=== PATIENT | male | born 1945 | race Caucasian/White ===

== ENCOUNTER 2017-02-17 08:21 | Inpatient (IN) | payer OTHER, BC ==
[2017-02-17 08:26] VITALS: BMI 28.1
--- NOTE | 2017-02-17 09:50 | PDOC ---
History of Present Illness - General Chief Complaint: Pain Stated Complaint: RT SHOULDER PAIN Time Seen by Provider: 02/17/17 08:42 History Source: Patient Exam Limitations: No Limitations - History of Present Illness Initial Comments: 02/17/17 12:00 02/17/17 12:00 My Chief Complaint: worsening rt. shoulder pain History of Present Illness: Pt. is a 71 y/o male with h/o HTN, Gout, multiple cardiac stents, chronic renal insuffiency, rt. rotator surgery 5 mths ago, dermal implant rt. shoulder 3 mths ago 11/11/16. Pt. reports "brushing up a wall 2 weeks ago when walking up steps 2 weeks ago". Pt. has had decreased range of motion rt. shoulder since this episode prior to this he was able to move his rt. shoulder without pain. Pt. also has swelling rt. shoulder with erythema of rt. upper arm/shoulder with increased warmth, since yesterday he reports that erythema and pain radiates slightly past his rt elbow. Pt. took percocet last night with relief of pain for only 2 hours. Pt. was treated for gout of left foot 3 weeks ago for 12 days with prednisone. pt. denies any fever or chills. Pt. currently is a 10 out of 10. REGIONAL REHABILITATION DIRECTOR: Dr. Reddy PMHx: HtN, GERD, GOUT, CAD, chronic renal insufficency ALLERGIES: CODEINE Surgical HX: cardiac stents, b/l inguinal hernia repair ORtho: Dr. Castro 02/17/17 12:05 02/17/17 12:33 02/18/17 08:20 Timing/Duration: getting worse Severity: severe (rt. shoulder radiating down rt. arm to mid forearm) Associated Symptoms: reports: other (RT. SHOULDER PAIN RADIATES TO SLIGHTLY BELOW RT, ELBOW WITH REDNESS, INCREASED WARMTH) Past History - Past Medical History Allergies/Adverse Reactions: Allergies Allergy/AdvReac Type Severity Reaction Status Date / Time codeine AdvReac Intermediate Itching Verified 02/17/17 08:26 Home Medications: Ambulatory Orders Aspirin Coated [Ecotrin -] 81 mg PO DAILY 01/20/13 Lisinopril [Prinivil -] 20 mg PO DAILY 01/20/13 Metoprolol Succinate [Toprol XL -] 25 mg PO DAILY 01/20/13 Amlodipine Besylate [Norvasc -] 5 mg PO DAILY 02/27/14 Zolpidem Tartrate [Ambien] 5 mg PO HS PRN 03/01/14 Anemia: No Asthma: No Cancer: No Cardiac Disorders: Yes (PT HAD 6 STENTS 2010) CVA: No COPD: No CHF: No Dementia: No Diabetes: No GI Disorders: No Disorders: No HTN: Yes Hypercholesterolemia: No Liver Disease: No Seizures: No Thyroid Disease: No Other medical history: gout - Surgical History Abdominal Surgery: Yes (BILAT INGUINAL HERNIA REPAIR) Appendectomy: No Cardiac Surgery: Yes (ANGIOPLASTY 6 STENTS -SEE ABOVE) Cholecystectomy: No Lung Surgery: No Neurologic Surgery: No Orthopedic Surgery: Yes ('73 DEBORAH RIGHT LEG) - Psycho/Social/Smoking Cessation Hx Anxiety: No Suicidal Ideation: No Smoking History: Never smoked Have you smoked in the past 12 months: Yes Number of Cigarettes Smoked Daily: 2 If you are a former smoker, when did you quit?: stopped 4 yrs ago 'Breaking Loose' booklet given: 09/30/13 Hx Alcohol Use: No Drug/Substance Use Hx: No Substance Use Type: None Hx Substance Use Treatment: No Review of Systems - Review of Systems Able to Perform ROS?: Yes Constitutional: No: Symptoms Reported HEENTM: No: Symptoms Reported Respiratory: No: Symptoms reported Cardiac (ROS): No: Symptoms Reported ABD/GI: No: Symptoms Reported : No: Symptoms Reported Musculoskeletal: Yes: Joint Pain (RT. SHOULDER LATERALLY X 2 WEEKS NRADIATES TO SLIGHTLY BELOW RT. ELBOW SINCE YESTERDAY), Joint Swelling (RT. SHOULDER ) Integumentary: Yes: Erythema (RT SHOULDER RADIATES TO SLIGHTLY BELOW RT ELBOW MEDIALLY), Other (INCREASED WARMTH RT. SHOULDER) Neurological: No: Symptoms reported *Physical Exam - Vital Signs Last Vital Signs Temp Pulse Resp BP Pulse Ox 97.6 F 115 H 18 155/94 98 02/17/17 08:22 02/17/17 08:22 02/17/17 08:22 02/17/17 08:22 02/17/17 08:22 - Physical Exam General Appearance: Yes: Appropriately Dressed Respiratory/Chest: positive: Lungs Clear, Normal Breath Sounds. negative: Chest Tender, Respiratory Distress Cardiovascular: positive: Regular Rhythm, Regular Rate, S1, S2 Extremity: positive: Normal Capillary Refill, Normal Range of Motion (rt. shoulder ), Tender (rt. shoulder, left upper arm, left elbow), Swelling (rt. shoulder ), Erythema (rt. shoulder radiates down rt. arm slightly below elbow ) . negative: Normal Inspection (rt. shoulder edema, increased warmth, erythematous) Integumentary: positive: Erythema (see under integumentary) Neurologic: positive: Alert, Normal Response (decreased range of motion rt. shoulder), Motor Strength 5/5 (motor rt. shoulder decreased range of motion, strength ) Heart Score/ECG Review - [place] Comment: 02/17/17 14:[address] Kamran RAMOS Treatment Course - LABORATORY CBC & Chemistry Diagram: 02/18/17 07:00 02/18/17 07:00 Medical Decision Making - Medical Decision Making 02/17/17 10:41 Pt. is a 71 y/o male with h/o HTN, Gout, multiple cardiac stents, rt. rotator surgery 5 mths ago, dermal implant rt. shoulder 3 mths ago 11/11/16. Pt. reports "brushing up a wall 2 weeks ago when walking up steps 2 weeks ago". Pt. has had decreased range of motion rt. shoulder since this episode prior to this he was able to move his rt. shoulder without pain. Pt. also has swelling rt. shoulder with erythema of rt. upper arm/shoulder, since yesterday he reports that erythema and pain radiates slightly past his rt elbow. Pt. took percocet last night with relief of pain for only 2 hours. Pt. was treated for gout of left foot 3 weeks ago for 12 days with prednisone. pt. denies any fever or chills. Pt. currently is a 10 out of 10. Consider diagnosis of septic joint, cellultis, inflammatory process, less likely gout. r/o gout r/o septic joint r/o inflammatory process rt. shoulder r/o cellulitis rt. shoulder arm PLAN; cbc with diff CMP urinalysis blood culture ESR uric acid percocet 5mg/325mg po called his orthopedist Dr. Davison he saw pt. yesterday, xray of shoulder yesterday negative for fracture, he suggested to r/o infection versus inflammatory process versus gout Dr. Reddy called is on vacation Dr. Hubbard covering he was paged, and responded to call him if pt is being admitted 02/17/17 10:00 WBC 10.8 H D RBC 3.70 L Hgb 10.6 L Hct 31.9 L MCV 86.3 MCH 28.6 MCHC 33.1 RDW 16.4 H D Plt Count 301 D MPV 8.2 Neutrophils % Y Lymphocytes % Y 02/17/17 11:06 Laboratory Tests 02/17/17 02/17/17 10:00 10:35 Lymphocytes % (Manual) 7 L Monocytes % (Manual) 11 H Platelet Estimate Adequate Urine Color Yellow Urine Appearance Slcloudy Urine pH 6.0 Ur Specific [place] Pending Urine Protein 2+ H Urine Glucose (UA) Negative Urine Ketones Negative Urine Blood 1+ H Urine Nitrite Negative Urine Bilirubin Negative Urine Urobilinogen Negative Ur Leukocyte Esterase Negative Urine RBC 1 Urine WBC 1 Ur Epithelial Cells Rare Hyaline Casts 4 Granular Casts 7 Urine Mucus Rare Laboratory Tests 02/17/17 02/17/17 10:00 10:00 ESR 128 H Uric Acid 5.9 02/17/17 11:48 Dr. Dial called back given results of labs, he have his medical office secretary fax us labs prior to surgery rt. shoulder He is not able to come in at this time. He suggested give pt dose of colchicine to see if this decreases pain obtained labs from prior to surgery from 11/04/16 BUN 35, creatinine 1.6, akt 18 , alk phos 79, ast 20 02/17/17 11:49 02/17/17 12:10 02/17/17 12:14 02/17/17 12:[address] Andrew attending he recommends that pt. be admitted, Dr. Hubbard to be contacted, DR. ANDREW recommended starting him on vancomycin 1.5 gm IVPB now, not to give colchicine 02/17/17 12:15 EKG Laboratory Tests 02/17/17 10:00 Sodium 138 Potassium 5.0 D Chloride 103 Carbon Dioxide 25 Anion Gap 10 BUN 50 H D Creatinine 2.0 H D Creat Clearance w eGFR 32.92 Random Glucose 90 Calcium 8.8 Total Bilirubin 0.6 AST 48 H D ALT 106 H D Alkaline Phosphatase 390 H D Total Protein 6.1 L Albumin 2.2 L D Drr. Hubbard contacted pt to be admitted to med surg, he will get ortho consult 02/17/17 12:36 02/17/17 12:42 02/17/17 14:35 02/18/17 08:29 02/18/17 11:54 02/18/17 11:57 *DC/Admit/Observation/Transfer Diagnosis at time of Disposition: Cellulitis of multiple sites of upper limb and shoulder - Discharge Dispostion Condition at time of disposition: Stable Admit: Yes - Referrals
[2017-02-17 10:14] LABS: MCH 28.6 pg (25.7-33.7); MCHC 33.1 g/dl (32.0-35.9); MEAN CELL VOLUME 86.3 fl (80-96); MEAN PLT VOLUME 8.2 fl (7.5-11.1); PLATELET COUNT 301 K/MM3 (134-434); RDW 16.4 % (11.9-15.9); WHITE BLOOD COUNT 10.8 K/mm3 (4.0-10.0)
[2017-02-17 10:43] LABS: URINE APPEARANCE SLCLOUDY; URINE BILIRUBIN NEGATIVE (NEGATIVE); URINE BLOOD 1+ (NEGATIVE); URINE COLOR YELLOW; URINE GLUCOSE (UA) NEGATIVE (NEGATIVE); URINE KETONE NEGATIVE (NEGATIVE); URINE LEUK ESTERASE NEGATIVE (NEGATIVE); URINE NITRITE NEGATIVE (NEGATIVE); URINE UROBILINOGEN NEGATIVE mg/dL (0.2-1.0)
[2017-02-17 10:44] LABS: URINE PROTEIN 2+ (NEGATIVE)
[2017-02-17 10:45] LABS: GRANULAR CASTS 7 /lpf; URINE HYALINE CAST 4 /lpf; URINE MUCUS RARE; URINE RBC 1 /hpf (0-3); URINE WBC 1 /hpf (3-5)
[2017-02-17 11:04] LABS: METAMYELOCYTE 1 % (0-2); PLATELET ESTIMATE ADEQUATE (NORMAL); TOTAL CELLS COUNTED 100
[2017-02-17 12:10] LABS: ALBUMIN 2.2 g/dl (3.4-5.0); ANION GAP 10 (8-16); CALCIUM 8.8 mg/dL (8.5-10.1); CO2 25 mmol/L (21-32); GLUCOSE,RANDOM 90 mg/dL (74-106); SGOT/AST 48 U/L (15-37); SGPT/ALT 106 U/L (12-78)
[2017-02-17 12:12] LABS: ALK PHOS 390 U/L (45-117); BILIRUBIN,TOTAL 0.6 mg/dL (0.2-1.0); TOT PROT 6.1 g/dl (6.4-8.2)
[2017-02-17] MEDS ORDERED: VANCOMYCIN 1,500 MG in DEXTROSE 5%-WATER - 500 ML IVPB ONE (12:40)
[2017-02-17] MEDS ORDERED: ONDANSETRON 4 MG/2 ML VIAL IVPB PRN (15:03)
--- NOTE | 2017-02-17 15:09 | HP ---
Admitting History and Physical - Primary Care Physician PCP: Clay Reddy - Admission Chief Complaint: My shoulder is hurting History of Present Illness: Mr Jones is a 71 year old male who comes in complaining of R shoulder pain with redness and swelling. He says he recently underwent surgery back in October. He was undergoing PT and was improving. He was recently discharged from PT without difficulty. He also had a recent gout flare earlier this month which he was treated with a prednisone taper. He says last week he was following up with his orthopedic surgeon and he "brushed" his shoulder (of note orthopedic surgeon says patient fell). After that he noticed pain and swelling in his shoulder. He says the pain is 10/10 and radiates down his right arm. There is redness associated with the pain as well. He says he has not checked his temperature but felt warm. Having some episodes of nausea without vomiting. He has general malaise. He denies chills, lightheadedness, dizziness, passing out, chest pain or pressure, shortness of breath, coughing, abdominal pain, diarrhea, constipation, difficulty or pain on urination, or swelling of his lower extremities. History Source: Patient Limitations to Obtaining History: No Limitations - Past Medical History Cardiovascular: Yes: CAD (stent placements), HTN Renal/: Yes: Renal Inusuff Rheumatology: Yes: Gout - Past Surgical History Past Surgical History: Yes: Hernia Repair (x2) - Smoking History Smoking history: Never smoked Have you smoked in the past 12 months: Yes Aproximately how many cigarettes per day: 2 If you are a former smoker, when did you quit?: stopped 4 yrs ago - Alcohol/Substance Use Hx Alcohol Use: No History of Substance Use: reports: None - Social History Usual Living Arrangement: Yes: With Spouse ADL: Independent Occupation: retired [employer] History of Recent Travel: No Home Medications - Allergies Allergies/Adverse Reactions: Allergies Allergy/AdvReac Type Severity Reaction Status Date / Time codeine AdvReac Intermediate Itching Verified 02/17/17 08:26 - Home Medications Home Medications: Ambulatory Orders Aspirin Coated [Ecotrin -] 81 mg PO DAILY 01/20/13 Lisinopril [Prinivil -] 20 mg PO DAILY 01/20/13 Metoprolol Succinate [Toprol XL -] 25 mg PO DAILY 01/20/13 Amlodipine Besylate [Norvasc -] 5 mg PO DAILY 02/27/14 Zolpidem Tartrate [Ambien] 5 mg PO HS PRN 03/01/14 Family Disease History - Family Disease History Family Disease History: Diabetes: Sister (HTN), Heart Disease: Father, CA: Mother, Other: Sister Review of Systems Findings/Remarks: Full review of systems obtained, as per HPI and otherwise negative Physical Examination Vital Signs: Vital Signs Temperature 36.4 C 02/17/17 08:22 Pulse Rate 104 H 02/17/17 13:50 Respiratory Rate 18 02/17/17 13:50 Blood Pressure 117/69 02/17/17 13:50 O2 Sat by Pulse Oximetry (%) 98 02/17/17 13:50 Constitutional: Yes: Well Nourished, No Distress, Calm Eyes: Yes: Conjunctiva Clear, EOM Intact, PERRL HENT: Yes: Atraumatic, Normocephalic Cardiovascular: Yes: Tachycardia. No: Gallop, Murmur, Rub Respiratory: Yes: Regular, CTA Bilaterally. No: Rales, Rhonchi, Wheezes Gastrointestinal: Yes: Normal Bowel Sounds, Soft. No: Distention, Tenderness Extremities: Yes: Erythema (R arm and shoulder) Edema: No Labs: Laboratory Results - last 24 hr 02/17/17 02/17/17 02/17/17 10:00 10:00 10:00 WBC 10.8 H D RBC 3.70 L Hgb 10.6 L Hct 31.9 L MCV 86.3 MCH 28.6 MCHC 33.1 RDW 16.4 H D Plt Count 301 D MPV 8.2 Total Counted 100 Neutrophils % Y Neutrophils % (Manual) 79 Band Neuts % (Manual) 2 Lymphocytes % Y Lymphocytes % (Manual) 7 L Monocytes % (Manual) 11 H Platelet Estimate Adequate ESR 128 H Sodium 138 Potassium 5.0 D Chloride 103 Carbon Dioxide 25 Anion Gap 10 BUN 50 H D Creatinine 2.0 H D Creat Clearance w eGFR 32.92 Random Glucose 90 Uric Acid Calcium 8.8 Total Bilirubin 0.6 AST 48 H D ALT 106 H D Alkaline Phosphatase 390 H D Total Protein 6.1 L Albumin 2.2 L D Urine Color Urine Appearance Urine pH Urine Protein Urine Glucose (UA) Urine Ketones Urine Blood Urine Nitrite Urine Bilirubin Urine Urobilinogen Ur Leukocyte Esterase Urine RBC Urine WBC Ur Epithelial Cells Hyaline Casts Granular Casts Urine Mucus 02/17/17 02/17/17 10:00 10:35 WBC RBC Hgb Hct MCV MCH MCHC RDW Plt Count MPV Total Counted Neutrophils % Neutrophils % (Manual) Band Neuts % (Manual) Lymphocytes % Lymphocytes % (Manual) Monocytes % (Manual) Platelet Estimate ESR Sodium Potassium Chloride Carbon Dioxide Anion Gap BUN Creatinine Creat Clearance w eGFR Random Glucose Uric Acid 5.9 Calcium Total Bilirubin AST ALT Alkaline Phosphatase Total Protein Albumin Urine Color Yellow Urine Appearance Slcloudy Urine pH 6.0 Urine Protein 2+ H Urine Glucose (UA) Negative Urine Ketones Negative Urine Blood 1+ H Urine Nitrite Negative Urine Bilirubin Negative Urine Urobilinogen Negative Ur Leukocyte Esterase Negative Urine RBC 1 Urine WBC 1 Ur Epithelial Cells Rare Hyaline Casts 4 Granular Casts 7 Urine Mucus Rare Problem List - Problems (1) Cellulitis of multiple sites of upper limb and shoulder Assessment/Plan: -patient presents with R shoulder and arm cellulitis -concern for possible septic arthritis considering elevated ESR -admit to the hospital -given IV vancomycin in the ED -consult ID and orthopedics -monitor for improvement Code(s): L03.119 - CELLULITIS OF UNSPECIFIED PART OF LIMB (2) ALBER (acute kidney injury) Assessment/Plan: -hydrate -follow up for improvement Code(s): N17.9 - ACUTE KIDNEY FAILURE, UNSPECIFIED (3) CKD (chronic kidney disease) Assessment/Plan: -monitor, currently with ALBER Code(s): N18.9 - CHRONIC KIDNEY DISEASE, UNSPECIFIED Qualifiers: Chronic kidney disease stage: stage 3 (moderate) Qualified Code(s): N18.3 - Chronic kidney disease, stage 3 (moderate) (4) Elevated liver enzymes Assessment/Plan: -patient says have been elevating for some time -has appointment with Dr Siddiqui -will consult Dr Jaramillo to evaluate Code(s): R74.8 - ABNORMAL LEVELS OF OTHER SERUM ENZYMES (5) CAD (coronary artery disease) Assessment/Plan: -continue home regimen Code(s): I25.10 - ATHSCL HEART DISEASE OF [place] CORONARY ARTERY W/O ANG PCTRS (6) Hypertension Assessment/Plan: -continue toprol xl and norvasc -hold lisinopril secondary to creatinine Code(s): I10 - ESSENTIAL (PRIMARY) HYPERTENSION (7) Gout Assessment/Plan: -do not think this is gout -monitor Code(s): M10.9 - GOUT, UNSPECIFIED
[2017-02-17] MEDS ORDERED: SODIUM CHLORIDE 1,000 ML IV SCH (15:15)
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
--- NOTE | 2017-02-17 17:01 | CON.ORTH ---
Consult Reason for Consultation:: right shoulder pain/swelling/erythema - Past Medical History Cardio/Vascular: Yes: CAD (stent placements), HTN Renal/: Yes: Renal Inusuff Rheumatology: Yes: Gout - Past Surgical History Past Surgical History: Yes: Hernia Repair (x2) - Alcohol/Substance Use Hx Alcohol Use: No History of Substance Use: reports: None - Smoking History Smoking history: Never smoked Have you smoked in the past 12 months: Yes Aproximately how many cigarettes per day: 2 If you are a former smoker, when did you quit?: stopped 4 yrs ago - Social History Usual Living Arrangement: With Spouse ADL: Independent Occupation: retired it desktop support technician, [employer] History of Recent Travel: No Home Medications - Allergies Allergies/Adverse Reactions: Allergies Allergy/AdvReac Type Severity Reaction Status Date / Time codeine AdvReac Intermediate Itching Verified 02/17/17 08:26 - Home Medications Home Medications: Ambulatory Orders Aspirin Coated [Ecotrin -] 81 mg PO DAILY 01/20/13 Lisinopril [Prinivil -] 20 mg PO DAILY 01/20/13 Metoprolol Succinate [Toprol XL -] 25 mg PO DAILY 01/20/13 Amlodipine Besylate [Norvasc -] 5 mg PO DAILY 02/27/14 Zolpidem Tartrate [Ambien] 5 mg PO HS PRN 03/01/14 Family Disease History - Family Disease History Family Disease History: Diabetes: Sister (HTN), Heart Disease: Father, CA: Mother, Other: Sister Physical Exam for Ortho Vital Signs: Vital Signs Temperature 97.9 F 02/17/17 16:54 Pulse Rate 101 H 02/17/17 16:54 Respiratory Rate 20 02/17/17 16:54 Blood Pressure 155/77 02/17/17 16:54 O2 Sat by Pulse Oximetry (%) 98 02/17/17 13:50 - Upper Extremity Shoulder: Yes: Right, Erythema, Limited ROM, Pain, Swelling, Tenderness, Other ( nvi) Assessment/Plan 71 year old male who comes in complaining of R shoulder pain with redness and swelling. He says he recently underwent surgery back in October ( failed RCR and then patch with Dr. Davison. He was undergoing PT and was improving. He was recently discharged from PT without difficulty. He "brushed" his shoulder 1 week ago(of note orthopedic surgeon says patient fell). After that he noticed pain and swelling in his shoulder. He says the pain is 10/10 and radiates down his right arm. There is redness associated with the pain as well. a/p- Right shoulder cellulitis s/p RCR with allograft patch xrays right shoulder IV abx as per ID will advise once xrays performed f/u ESR and CRP d/w Dr. Sherman
[2017-02-17] MEDS: oxyCODONE HCL 5 MG TABLET PO PRN (17:08)
[2017-02-17] MEDS ORDERED: ZOLPIDEM TARTRATE 5 MG TABLET PO ONE (22:00)
[2017-02-17] MEDS: DOCUSATE SODIUM 100 MG CAPSULE (FP) PO SCH (22:19)
[2017-02-18 08:45] LABS: MCH 27.8 pg (25.7-33.7); MCHC 32.2 g/dl (32.0-35.9); MEAN CELL VOLUME 86.3 fl (80-96); MEAN PLT VOLUME 8.4 fl (7.5-11.1); PLATELET COUNT 376 K/MM3 (134-434); RDW 16.3 % (11.9-15.9); WHITE BLOOD COUNT 12.3 K/mm3 (4.0-10.0)
[2017-02-18 09:10] LABS: ANION GAP 10 (8-16); CALCIUM 9.2 mg/dL (8.5-10.1); CO2 23 mmol/L (21-32); GLUCOSE,RANDOM 92 mg/dL (74-106); MAGNESIUM 2.5 mg/dL (1.8-2.4)
[2017-02-18 09:11] LABS: CREATININE 1.7 mg/dL (0.7-1.3); PHOSPHOROUS 3.6 mg/dL (2.5-4.9)
--- NOTE | 2017-02-18 09:12 | PN ---
Progress Note (short form) - Note Progress Note: Pt seen and examined. I spoke with Dr Davison last night. Pt states his right shoulder is feeling a little better, but he still has decreased ROM. AVSS Uric acid - Nl ESR - 128 Bld Cx Pending RUE Decreased active ROM at the shoulder in all planes. Grossly NVI Area of superficial cellulitis/erythema decreasing. R shoulder + mild joint effusion Overall pt is improving. DD still includes cellulitis vs deep infection of RTC graft vs gout I rec con't treatment with IV antibiotics, and F/U with his sutgeon, Dr Davison , after DC.
[2017-02-18] MEDS ORDERED: METOPROLOL SUCCINATE 25 MG TAB.SR.24H (FP) PO SCH (10:00)
[2017-02-18] MEDS: DOCUSATE SODIUM 100 MG CAPSULE (FP) PO SCH ×2 (10:00→23:19)
[2017-02-18] MEDS: amLODIPine BESYLATE 5 MG TABLET (FP) PO SCH (10:00)
[2017-02-18] MEDS: LACTOBACILLUS ACIDOPHILUS 1 EACH TAB (FP) PO SCH (10:01)
[2017-02-18] MEDS: POLYETHYLENE GLYCOL 3350 119 GM BTL PO SCH (10:03)
[2017-02-18] MEDS ORDERED: PIPERACILLIN/TAZOB 3.375 GM/50 ML PRE-DOCKED IV ONE (10:11)
--- NOTE | 2017-02-18 10:52 | PN ---
Progress Note, Physician Chief Complaint: Mr Jones says he is feeling better but still has significant pain in his right shoulder. Denies cp, sob, n/v. Says redness is better. - Current Medication List Current Medications: Active Medications Allopurinol (Zyloprim -) 100 mg PO DAILY [facility] Amlodipine Besylate (Norvasc -) 5 mg PO DAILY [facility] Last Admin: 02/18/17 10:00 Dose: 5 mg Docusate Sodium (Colace -) 100 mg PO BID [facility] Last Admin: 02/18/17 10:00 Dose: 100 mg Sodium Chloride (Normal Saline -) 1,000 mls @ 50 mls/hr IV ASDIR [facility] Stop: 02/18/17 15:05 Last Admin: 02/17/17 19:22 Dose: 50 mls/hr Vancomycin HCl 1,000 mg/ (Dextrose) 250 mls @ 200 mls/hr IVPB ONCE ONE Stop: 02/18/17 11:25 Lactobacillus Acidophilus (Bacid -) 1 tab PO DAILY [facility] Last Admin: 02/18/17 10:01 Dose: 1 tab Metoprolol Succinate (Toprol Xl -) 25 mg PO DAILY [facility] Last Admin: 02/18/17 10:00 Dose: 25 mg Ondansetron HCl (Zofran Injection) 4 mg IVPB Q6H PRN PRN Reason: NAUSEA Oxycodone HCl (Roxicodone -) 5 mg PO Q4H PRN PRN Reason: PAIN Last Admin: 02/17/17 17:08 Dose: 5 mg Piperacillin Sod/Tazobactam Sod (Zosyn 3.375gm Ivpb (Pre-Docked)) 3.375 gm IV ONCE ONE PRN Reason: Protocol Stop: 02/18/17 10:12 Polyethylene Glycol (Miralax (For Daily Use) -) 17 gm PO DAILY [facility] Last Admin: 02/18/17 10:03 Dose: 17 gm Sodium Polystyrene Sulfonate (Kayexalate -) 15 gm PO ONCE ONE Stop: 02/18/17 10:12 - Objective Vital Signs: Vital Signs Temperature 37.2 C 02/18/17 07:40 Pulse Rate 76 02/18/17 07:40 Respiratory Rate 20 02/18/17 07:40 Blood Pressure 145/86 02/18/17 07:40 O2 Sat by Pulse Oximetry (%) 98 02/17/17 21:00 Constitutional: Yes: Well Nourished, No Distress, Calm Cardiovascular: Yes: Regular Rate and Rhythm. No: Gallop, Murmur, Rub Respiratory: Yes: Regular, CTA Bilaterally. No: Rales, Rhonchi, Wheezes Gastrointestinal: Yes: Normal Bowel Sounds, Soft. No: Distention, Tenderness Extremities: Yes: Erythema (R shoulder and arm, improved today) Edema: No Labs: CBC, BMP 02/18/17 07:00 02/18/17 07:00 Problem List - Problems (1) Cellulitis of multiple sites of upper limb and shoulder Code(s): L03.119 - CELLULITIS OF UNSPECIFIED PART OF LIMB (2) ALBER (acute kidney injury) Code(s): N17.9 - ACUTE KIDNEY FAILURE, UNSPECIFIED (3) CKD (chronic kidney disease) Code(s): N18.9 - CHRONIC KIDNEY DISEASE, UNSPECIFIED Qualifiers: Chronic kidney disease stage: stage 3 (moderate) Qualified Code(s): N18.3 - Chronic kidney disease, stage 3 (moderate) (4) Elevated liver enzymes Code(s): R74.8 - ABNORMAL LEVELS OF OTHER SERUM ENZYMES (5) CAD (coronary artery disease) Code(s): I25.10 - ATHSCL HEART DISEASE OF [place] CORONARY ARTERY W/O ANG PCTRS (6) Hypertension Code(s): I10 - ESSENTIAL (PRIMARY) HYPERTENSION (7) Gout Code(s): M10.9 - GOUT, UNSPECIFIED Assessment/Plan (1) Cellulitis of multiple sites of upper limb and shoulder Assessment/Plan: -cellulitis improved today but still present -will order another dose of vancomyin -also give dose of zosyn -ID consulted and awaiting recommendations -concerning secondary to elevated ESR Code(s): L03.119 - CELLULITIS OF UNSPECIFIED PART OF LIMB (2) ALBER (acute kidney injury) Assessment/Plan: -back at baseline Code(s): N17.9 - ACUTE KIDNEY FAILURE, UNSPECIFIED (3) CKD (chronic kidney disease) Assessment/Plan: -monitor Code(s): N18.9 - CHRONIC KIDNEY DISEASE, UNSPECIFIED Qualifiers: Chronic kidney disease stage: stage 3 (moderate) Qualified Code(s): N18.3 - Chronic kidney disease, stage 3 (moderate) (4) Elevated liver enzymes Assessment/Plan: -appreciate GI assistance -abdominal ultrasound ordered -trend LFTs Code(s): R74.8 - ABNORMAL LEVELS OF OTHER SERUM ENZYMES (5) CAD (coronary artery disease) Assessment/Plan: -continue home regimen Code(s): I25.10 - ATHSCL HEART DISEASE OF [place] CORONARY ARTERY W/O ANG PCTRS (6) Hypertension Assessment/Plan: -continue norvasc -increase toprol xl while holding lisinopril -will continue to hold lisinopril secondary to potassium Code(s): I10 - ESSENTIAL (PRIMARY) HYPERTENSION (7) Gout Assessment/Plan: -can restart allopurinol Code(s): M10.9 - GOUT, UNSPECIFIED (8) Hyperkalemia -low dose kayexalate -recheck in am
[2017-02-18] MEDS ORDERED: METOPROLOL SUCCINATE 25 MG TAB.SR.24H (FP) PO ONE (10:57)
[2017-02-18 10:58] LABS: METAMYELOCYTE 1 % (0-2); MYELOCYTE 1 % (0-2); PLATELET ESTIMATE ADEQUATE (NORMAL); TOTAL CELLS COUNTED 100
[2017-02-18] MEDS ORDERED: PIPERACILLIN/TAZOB 3.375 GM 3.375 GM in DEXTROSE 5%-WATER - 50 ML IVPB ONE (11:00)
[2017-02-18] MEDS ORDERED: SODIUM POLYSTYRENE SULFONATE 15 GM/60 ML BOTTLE PO ONE (11:00)
[2017-02-18] MEDS ORDERED: VANCOMYCIN 1 GRAM (PRE-DOCKED) 250 ML IVPB ONE (11:00)
--- NOTE | 2017-02-18 11:16 | EKG ---
Test Reason : Blood Pressure : / mmHG Vent. Rate : 100 BPM Atrial Rate : 100 BPM P-R Int : 150 ms QRS Dur : 114 ms QT Int : 334 ms P-R-T Axes : 040 000 056 degrees QTc Int : 430 ms NORMAL SINUS RHYTHM POSSIBLE LEFT ATRIAL ENLARGEMENT BORDERLINE ECG WHEN COMPARED WITH ECG OF 01-MAR-2014 11:38, NONSPECIFIC T WAVE ABNORMALITY NO LONGER EVIDENT IN INFERIOR LEADS Confirmed by TEZ LAM MD ([id number]) on 02/18/2017 11:15:46 AM Referred By: Confirmed By:TEZ LAM MD
[2017-02-18] MEDS ORDERED: DEXTROSE 5%-WATER - 50 ML IVPB ONE (11:44)
[2017-02-18] MEDS ORDERED: PIPERACILLIN/TAZOBACTAM 3.375 GM VIAL IVPB ONE (11:44)
[2017-02-18] MEDS: ALLOPURINOL 100 MG TABLET (FP) PO SCH (11:54)
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
[2017-02-18 13:52] LABS: ALBUMIN 2.2 g/dl (3.4-5.0); BILIRUBIN,DIRECT 0.2 mg/dL (0.0-0.2); BILIRUBIN,TOTAL 0.7 mg/dL (0.2-1.0); SGOT/AST 39 U/L (15-37); SGPT/ALT 82 U/L (12-78); TOT PROT 6.3 g/dl (6.4-8.2)
[2017-02-18 13:53] LABS: ALK PHOS 466 U/L (45-117)
[2017-02-18] MEDS ORDERED: PT OWN MED DRAWER 7, Y5N ONE (14:15)
[2017-02-18] MEDS: ERTAPENEM SODIUM 1 GM in SODIUM CHLORIDE 50 ML IVPB SCH (16:03)
[2017-02-18] MEDS: oxyCODONE HCL 5 MG TABLET PO PRN (18:59)
[2017-02-18] MEDS: ZOLPIDEM TARTRATE 5 MG TABLET PO PRN (23:31)
[2017-02-19] MEDS: oxyCODONE HCL 5 MG TABLET PO PRN ×4 (07:43→23:42)
[2017-02-19 07:44] LABS: MCH 28.3 pg (25.7-33.7); MCHC 32.9 g/dl (32.0-35.9); MEAN CELL VOLUME 85.9 fl (80-96); MEAN PLT VOLUME 7.9 fl (7.5-11.1); PLATELET COUNT 387 K/MM3 (134-434); RDW 16.1 % (11.9-15.9); WHITE BLOOD COUNT 10.9 K/mm3 (4.0-10.0)
[2017-02-19 07:56] LABS: ALBUMIN 1.8 g/dl (3.4-5.0); ANION GAP 10 (8-16); BILIRUBIN,DIRECT < 0.2 mg/dL (0.0-0.2); CALCIUM 8.8 mg/dL (8.5-10.1); CO2 23 mmol/L (21-32); CREATININE 1.6 mg/dL (0.7-1.3); GLUCOSE,RANDOM 88 mg/dL (74-106); MAGNESIUM 2.1 mg/dL (1.8-2.4); PHOSPHOROUS 3.7 mg/dL (2.5-4.9); SGOT/AST 44 U/L (15-37); SGPT/ALT 69 U/L (12-78)
[2017-02-19 07:57] LABS: ALK PHOS 441 U/L (45-117); BILIRUBIN,TOTAL 0.6 mg/dL (0.2-1.0); TOT PROT 5.7 g/dl (6.4-8.2)
[2017-02-19] MEDS ORDERED: PT OWN MED DRAWER 7, Y5N ONE (08:44)
[2017-02-19] MEDS: LACTOBACILLUS ACIDOPHILUS 1 EACH TAB (FP) PO SCH (09:21)
[2017-02-19] MEDS: amLODIPine BESYLATE 5 MG TABLET (FP) PO SCH (09:21)
[2017-02-19] MEDS: ALLOPURINOL 100 MG TABLET (FP) PO SCH (09:21)
[2017-02-19] MEDS: METOPROLOL SUCCINATE 50 MG TAB.SR.24H (FP) PO SCH (09:22)
[2017-02-19] MEDS: DOCUSATE SODIUM 100 MG CAPSULE (FP) PO SCH ×2 (09:23→21:29)
[2017-02-19] MEDS: POLYETHYLENE GLYCOL 3350 119 GM BTL PO SCH (09:23)
[2017-02-19] MEDS: ERTAPENEM SODIUM 1 GM in SODIUM CHLORIDE 50 ML IVPB SCH (09:56)
[2017-02-19] MEDS: VANCOMYCIN 1,250 MG in DEXTROSE 5%-WATER - 250 ML IVPB SCH (09:57)
[2017-02-19 10:18] LABS: BASOPHIL (MANUAL) 1 % (0-2.0); METAMYELOCYTE 2 % (0-2); MYELOCYTE 2 % (0-2); PLATELET ESTIMATE ADEQUATE (NORMAL); TOTAL CELLS COUNTED 100
--- NOTE | 2017-02-19 10:52 | PN ---
Progress Note (short form) - Note Progress Note: Ortho Pt seen and examined Microbiology 02/17/17 10:10 Blood - Peripheral Venous Blood Culture - Preliminary NO GROWTH OBTAINED AFTER 48 HOURS, INCUBATION TO CONTINUE FOR 3 DAYS. Selected Entries 02/19/17 05:49 Temperature 98.7 F Pulse Rate 101 H Respiratory 20 Rate Blood Pressure 142/70 Laboratory Tests 02/19/17 06:30 WBC 10.9 H Hgb 9.9 L Hct 30.0 L Plt Count 387 PE- decr erythema, + joint effusion, + ttp, decr rom nvi CT scan- + joint effusion, with RC anchors in place a/p Under sterile technique, the right shoulder as aspirated, 60 cc of cloudy fluid obtained fluid was sent for analysis continue abx as per ID ROM exercises f/u lab result d/w Dr. Sherman
[2017-02-19 11:25] LABS: TOTAL PROTEIN,SYNOVIAL FLUID 5 gm/dL
[2017-02-19 11:26] LABS: GLUCOSE,SYNOVIAL FLUID 85 mg/dL
[2017-02-19 12:40] LABS: SYNOVIAL FLUID LYMPHOCYTES 1 %; SYNOVIAL FLUID MONOCYTES 3 %; SYNOVIAL FLUID NEUTROPHILS 96 %
[2017-02-19 13:07] LABS: CRYSTALS,SYNOVIAL FLUID NEGATIVE
--- NOTE | 2017-02-19 14:07 | PN ---
Progress Note, Physician History of Present Illness: patient feeling much better aspiration of the fluid done hand looks much better still with pain - Current Medication List Current Medications: Active Medications Allopurinol (Zyloprim -) 100 mg PO DAILY [facility] Last Admin: 02/19/17 09:21 Dose: 100 mg Amlodipine Besylate (Norvasc -) 5 mg PO DAILY [facility] Last Admin: 02/19/17 09:21 Dose: 5 mg Docusate Sodium (Colace -) 100 mg PO BID [facility] Last Admin: 02/19/17 09:23 Dose: 100 mg Ertapenem 1 gm/ Sodium (Chloride) 50 mls @ 50 mls/hr IVPB DAILY [facility] PRN Reason: Protocol Last Admin: 02/19/17 09:56 Dose: 50 mls/hr Vancomycin HCl 1,250 mg/ (Dextrose) 250 mls @ 166.667 mls/hr IVPB DAILY [facility] PRN Reason: Protocol Last Admin: 02/19/17 09:57 Dose: 166.667 mls/hr Lactobacillus Acidophilus (Bacid -) 1 tab PO DAILY [facility] Last Admin: 02/19/17 09:21 Dose: 1 tab Metoprolol Succinate (Toprol Xl -) 50 mg PO DAILY [facility] Last Admin: 02/19/17 09:22 Dose: 50 mg Ondansetron HCl (Zofran Injection) 4 mg IVPB Q6H PRN PRN Reason: NAUSEA Oxycodone HCl (Roxicodone -) 10 mg PO Q4H PRN PRN Reason: PAIN Polyethylene Glycol (Miralax (For Daily Use) -) 17 gm PO DAILY [facility] Last Admin: 02/19/17 09:23 Dose: Not Given Zolpidem Tartrate (Ambien -) 5 mg PO HS PRN PRN Reason: INSOMNIA Stop: 02/19/17 23:08 Last Admin: 02/18/17 23:31 Dose: 5 mg - Objective Vital Signs: Vital Signs Temperature 98.8 F 02/19/17 10:00 Pulse Rate 119 H 02/19/17 10:00 Respiratory Rate 18 02/19/17 10:00 Blood Pressure 121/66 02/19/17 10:00 O2 Sat by Pulse Oximetry (%) 98 02/19/17 09:00 Constitutional: Yes: No Distress, Calm Cardiovascular: Yes: Regular Rate and Rhythm Respiratory: Yes: Regular, CTA Bilaterally Gastrointestinal: Yes: Normal Bowel Sounds, Soft Musculoskeletal: Yes: Other Extremities: Yes: Other Neurological: Yes: Alert, Oriented Psychiatric: Yes: Alert, Oriented Labs: CBC, BMP 02/19/17 06:30 02/19/17 06:30 Assessment/Plan Problem List - Problems (1) Cellulitis of multiple sites of upper limb and shoulder Code(s): L03.119 - CELLULITIS OF UNSPECIFIED PART OF LIMB (2) ALBER (acute kidney injury) Code(s): N17.9 - ACUTE KIDNEY FAILURE, UNSPECIFIED (3) CKD (chronic kidney disease) Code(s): N18.9 - CHRONIC KIDNEY DISEASE, UNSPECIFIED Qualifiers: Chronic kidney disease stage: stage 3 (moderate) Qualified Code(s): N18.3 - Chronic kidney disease, stage 3 (moderate) (4) Elevated liver enzymes Code(s): R74.8 - ABNORMAL LEVELS OF OTHER SERUM ENZYMES (5) CAD (coronary artery disease) Code(s): I25.10 - ATHSCL HEART DISEASE OF [place] CORONARY ARTERY W/O ANG PCTRS (6) Hypertension Code(s): I10 - ESSENTIAL (PRIMARY) HYPERTENSION (7) Gout Code(s): M10.9 - GOUT, UNSPECIFIED plan abx await for cx reports physio rest a per primary team
--- NOTE | 2017-02-19 16:18 | PN ---
Progress Note, Physician Chief Complaint: Mr Jones says his shoulder pain is better after aspiration but still present. No cp, sob, n/v. - Current Medication List Current Medications: Active Medications Allopurinol (Zyloprim -) 100 mg PO DAILY [facility] Last Admin: 02/19/17 09:21 Dose: 100 mg Amlodipine Besylate (Norvasc -) 5 mg PO DAILY [facility] Last Admin: 02/19/17 09:21 Dose: 5 mg Docusate Sodium (Colace -) 100 mg PO BID [facility] Last Admin: 02/19/17 09:23 Dose: 100 mg Ertapenem 1 gm/ Sodium (Chloride) 50 mls @ 50 mls/hr IVPB DAILY [facility] PRN Reason: Protocol Last Admin: 02/19/17 09:56 Dose: 50 mls/hr Vancomycin HCl 1,250 mg/ (Dextrose) 250 mls @ 166.667 mls/hr IVPB DAILY [facility] PRN Reason: Protocol Last Admin: 02/19/17 09:57 Dose: 166.667 mls/hr Lactobacillus Acidophilus (Bacid -) 1 tab PO DAILY [facility] Last Admin: 02/19/17 09:21 Dose: 1 tab Metoprolol Succinate (Toprol Xl -) 50 mg PO DAILY [facility] Last Admin: 02/19/17 09:22 Dose: 50 mg Ondansetron HCl (Zofran Injection) 4 mg IVPB Q6H PRN PRN Reason: NAUSEA Oxycodone HCl (Roxicodone -) 10 mg PO Q4H PRN PRN Reason: PAIN Polyethylene Glycol (Miralax (For Daily Use) -) 17 gm PO DAILY [facility] Last Admin: 02/19/17 09:23 Dose: Not Given Zolpidem Tartrate (Ambien -) 5 mg PO HS PRN PRN Reason: INSOMNIA Stop: 02/19/17 23:08 Last Admin: 02/18/17 23:31 Dose: 5 mg - Objective Vital Signs: Vital Signs Temperature 36.6 C 02/19/17 15:08 Pulse Rate 91 H 02/19/17 15:08 Respiratory Rate 18 02/19/17 15:08 Blood Pressure 126/64 02/19/17 15:08 O2 Sat by Pulse Oximetry (%) 98 02/19/17 09:00 Constitutional: Yes: Well Nourished, No Distress, Calm Cardiovascular: Yes: Regular Rate and Rhythm. No: Gallop, Murmur, Rub Respiratory: Yes: Regular, CTA Bilaterally. No: Rales, Rhonchi, Wheezes Gastrointestinal: Yes: Normal Bowel Sounds, Soft. No: Distention, Tenderness Extremities: Yes: Erythema (almost resolved) Edema: No Labs: CBC, BMP 02/19/17 06:30 02/19/17 06:30 Problem List - Problems (1) Cellulitis of multiple sites of upper limb and shoulder Code(s): L03.119 - CELLULITIS OF UNSPECIFIED PART OF LIMB (2) ALBER (acute kidney injury) Code(s): N17.9 - ACUTE KIDNEY FAILURE, UNSPECIFIED (3) CKD (chronic kidney disease) Code(s): N18.9 - CHRONIC KIDNEY DISEASE, UNSPECIFIED Qualifiers: Chronic kidney disease stage: stage 3 (moderate) Qualified Code(s): N18.3 - Chronic kidney disease, stage 3 (moderate) (4) Elevated liver enzymes Code(s): R74.8 - ABNORMAL LEVELS OF OTHER SERUM ENZYMES (5) CAD (coronary artery disease) Code(s): I25.10 - ATHSCL HEART DISEASE OF [place] CORONARY ARTERY W/O ANG PCTRS (6) Hypertension Code(s): I10 - ESSENTIAL (PRIMARY) HYPERTENSION (7) Gout Code(s): M10.9 - GOUT, UNSPECIFIED Assessment/Plan (1) Cellulitis of multiple sites of upper limb and shoulder Assessment/Plan: -CT scan showing fluid collection -s/p aspiration -continue antibiotics per ID -follow up cultures Code(s): L03.119 - CELLULITIS OF UNSPECIFIED PART OF LIMB (2) ALBER (acute kidney injury) Assessment/Plan: -back at baseline Code(s): N17.9 - ACUTE KIDNEY FAILURE, UNSPECIFIED (3) CKD (chronic kidney disease) Assessment/Plan: -monitor Code(s): N18.9 - CHRONIC KIDNEY DISEASE, UNSPECIFIED Qualifiers: Chronic kidney disease stage: stage 3 (moderate) Qualified Code(s): N18.3 - Chronic kidney disease, stage 3 (moderate) (4) Elevated liver enzymes Assessment/Plan: -appreciate GI assistance -abdominal ultrasound reviewed Code(s): R74.8 - ABNORMAL LEVELS OF OTHER SERUM ENZYMES (5) CAD (coronary artery disease) Assessment/Plan: -continue home regimen Code(s): I25.10 - ATHSCL HEART DISEASE OF [place] CORONARY ARTERY W/O ANG PCTRS (6) Hypertension Assessment/Plan: -continue norvasc -increase toprol xl while holding lisinopril -well controlled on current regimen Code(s): I10 - ESSENTIAL (PRIMARY) HYPERTENSION (7) Gout Assessment/Plan: -continue allopurinol Code(s): M10.9 - GOUT, UNSPECIFIED (8) Hyperkalemia -resolved
--- NOTE | 2017-02-19 17:02 | PN ---
GI Progress Note Subjective: S/P arthrocentesis of right shoulder No abdominal pain - Objective Vital Signs: Vital Signs Temperature 97.8 F 02/19/17 15:08 Pulse Rate 91 H 02/19/17 15:08 Respiratory Rate 18 02/19/17 15:08 Blood Pressure 126/64 02/19/17 15:08 O2 Sat by Pulse Oximetry (%) 98 02/19/17 09:00 Constitutional: Calm Eyes: No: Sclera Icterus Cardiovascular: Yes: Tachycardia. No: Murmur Respiratory: Yes: CTA Bilaterally Gastrointestinal Inspection: No: Distention ...Auscultate: Yes: Normoactive Bowel Sounds ...Palpate: No: Tenderness Labs: CBC, BMP 02/19/17 06:30 02/19/17 06:30 Laboratory Tests 02/17/17 02/17/17 10:00 10:00 Hepatitis A Ab Total Pending Hep Bs Antigen Pending Hep Bs Antibody Pending Hep B Core Total Ab Pending Hepatitis C Antibody <0.1 Hepatic Panel Total Bilirubin 0.6 mg/dL (0.2-1.0) 02/19/17 06:30 Direct Bilirubin < 0.2 mg/dL (0.0-0.2) 02/19/17 06:30 AST 44 U/L (15-37) H 02/19/17 06:30 ALT 69 U/L (12-78) 02/19/17 06:30 Alkaline Phosphatase 441 U/L (45-117) H 02/19/17 06:30 Albumin 1.8 g/dl (3.4-5.0) L 02/19/17 06:30 Problem List - Problems (1) Elevated liver enzymes Assessment/Plan: Synovial fluid: inflammatory vs. infectious Stable LFTs with some improvement today and no evidence of biliary obsctruction on abdominal US: ? if reactive in setting of systemic process in setting of underlying liver disease given patient's description of previously noted elevated liver chemistries. Ordered Lyme Ab Awaiting hepatitis serologies. Hep C ab negative Avoid hepatotoxic agents Code(s): R74.8 - ABNORMAL LEVELS OF OTHER SERUM ENZYMES
[2017-02-19] MEDS: ZOLPIDEM TARTRATE 5 MG TABLET PO PRN (21:28)
[2017-02-20 00:06] LABS: HEP B SURFACE AB Non Reactive (.)
[2017-02-20 08:50] LABS: MCH 28.1 pg (25.7-33.7); MCHC 32.7 g/dl (32.0-35.9); MEAN PLT VOLUME 7.6 fl (7.5-11.1); PLATELET COUNT 496 K/MM3 (134-434); WHITE BLOOD COUNT 10.8 K/mm3 (4.0-10.0)
[2017-02-20 09:15] LABS: ALBUMIN 2.1 g/dl (3.4-5.0); ANION GAP 10 (8-16); BILIRUBIN,DIRECT 0.2 mg/dL (0.0-0.2); CALCIUM 9.5 mg/dL (8.5-10.1); CO2 26 mmol/L (21-32); CREATININE 1.7 mg/dL (0.7-1.3); GLUCOSE,RANDOM 95 mg/dL (74-106); MAGNESIUM 2.2 mg/dL (1.8-2.4); PHOSPHOROUS 4.8 mg/dL (2.5-4.9)
[2017-02-20 09:16] LABS: BILIRUBIN,TOTAL 0.5 mg/dL (0.2-1.0); TOT PROT 6.3 g/dl (6.4-8.2)
[2017-02-20] MEDS: METOPROLOL SUCCINATE 50 MG TAB.SR.24H (FP) PO SCH (09:21)
[2017-02-20] MEDS: LACTOBACILLUS ACIDOPHILUS 1 EACH TAB (FP) PO SCH (09:21)
[2017-02-20] MEDS: amLODIPine BESYLATE 5 MG TABLET (FP) PO SCH (09:21)
[2017-02-20] MEDS: ALLOPURINOL 100 MG TABLET (FP) PO SCH (09:21)
[2017-02-20] MEDS: DOCUSATE SODIUM 100 MG CAPSULE (FP) PO SCH ×2 (09:21→21:40)
[2017-02-20] MEDS: POLYETHYLENE GLYCOL 3350 119 GM BTL PO SCH (09:21)
[2017-02-20] MEDS: oxyCODONE HCL 5 MG TABLET PO PRN ×2 (09:30→20:08)
[2017-02-20] MEDS: ERTAPENEM SODIUM 1 GM in SODIUM CHLORIDE 50 ML IVPB SCH (09:32)
[2017-02-20] MEDS ORDERED: COLCHICINE 0.6 MG TABLET (FP) PO ONE (09:45)
--- NOTE | 2017-02-20 09:46 | PN ---
Progress Note, Physician History of Present Illness: Notes increased pain, a constant sharp, pinching pain, in right anterior upper biceps. No fevers noted. Notes gouty pain returning in left foot as well. - Current Medication List Current Medications: Active Medications Allopurinol (Zyloprim -) 100 mg PO DAILY [facility] Last Admin: 02/20/17 09:21 Dose: 100 mg Amlodipine Besylate (Norvasc -) 5 mg PO DAILY [facility] Last Admin: 02/20/17 09:21 Dose: 5 mg Colchicine (Colcrys -) 1.2 mg PO ONCE ONE Stop: 02/20/17 09:46 Docusate Sodium (Colace -) 100 mg PO BID [facility] Last Admin: 02/20/17 09:21 Dose: Not Given Ertapenem 1 gm/ Sodium (Chloride) 50 mls @ 50 mls/hr IVPB DAILY [facility] PRN Reason: Protocol Last Admin: 02/20/17 09:32 Dose: 50 mls/hr Vancomycin HCl 1,250 mg/ (Dextrose) 250 mls @ 166.667 mls/hr IVPB DAILY [facility] PRN Reason: Protocol Last Admin: 02/19/17 09:57 Dose: 166.667 mls/hr Lactobacillus Acidophilus (Bacid -) 1 tab PO DAILY [facility] Last Admin: 02/20/17 09:21 Dose: 1 tab Metoprolol Succinate (Toprol Xl -) 50 mg PO DAILY [facility] Last Admin: 02/20/17 09:21 Dose: 50 mg Ondansetron HCl (Zofran Injection) 4 mg IVPB Q6H PRN PRN Reason: NAUSEA Oxycodone HCl (Roxicodone -) 10 mg PO Q4H PRN PRN Reason: PAIN Last Admin: 02/20/17 09:30 Dose: 10 mg Polyethylene Glycol (Miralax (For Daily Use) -) 17 gm PO DAILY [facility] Last Admin: 02/20/17 09:21 Dose: Not Given - Objective Vital Signs: Vital Signs Temperature 98.7 F 02/20/17 06:00 Pulse Rate 98 H 02/20/17 06:00 Respiratory Rate 18 02/20/17 06:00 Blood Pressure 135/64 02/20/17 06:00 O2 Sat by Pulse Oximetry (%) 98 02/19/17 21:00 Constitutional: Yes: Mild Distress (due to pain) Neck: Yes: Supple, Trachea Midline Cardiovascular: Yes: Regular Rate and Rhythm, S1, S2. No: Murmur Respiratory: Yes: Regular, CTA Bilaterally. No: Rales, Rhonchi, Wheezes Gastrointestinal: Yes: Normal Bowel Sounds, Soft. No: Distention, Tenderness Extremities: Yes: Other (rigth shoulder with mild crepitus to palpation, erythema anteriorly) Edema: No Neurological: Yes: Alert, Oriented Labs: CBC, BMP 02/20/17 07:00 02/20/17 07:00 Assessment/Plan Current Active Problems ALBER (acute kidney injury) (Acute) CKD (chronic kidney disease) (Acute) Cellulitis of multiple sites of upper limb and shoulder (Acute) Elevated liver enzymes (Acute) Gout (Acute) -given h/o gout and with pain in foot increasing will give 1 dose Colcrys (not standing order due to renal insufficency) -awaiting culture results -cont abx
[2017-02-20 10:03] LABS: PLATELET ESTIMATE INCREASED (NORMAL); TOTAL CELLS COUNTED 100
[2017-02-20] MEDS: VANCOMYCIN 1,250 MG in DEXTROSE 5%-WATER - 250 ML IVPB SCH (11:14)
--- NOTE | 2017-02-20 16:29 | PN ---
Progress Note, Physician History of Present Illness: Pt seen and examined. Events noted, lab results reviewed. Complains of constant pain in Rt shoulder and now in Lt lateral foot. - Current Medication List Current Medications: Active Medications Allopurinol (Zyloprim -) 100 mg PO DAILY [facility] Last Admin: 02/20/17 09:21 Dose: 100 mg Amlodipine Besylate (Norvasc -) 5 mg PO DAILY [facility] Last Admin: 02/20/17 09:21 Dose: 5 mg Docusate Sodium (Colace -) 100 mg PO BID [facility] Last Admin: 02/20/17 09:21 Dose: Not Given Ertapenem 1 gm/ Sodium (Chloride) 50 mls @ 50 mls/hr IVPB DAILY [facility] PRN Reason: Protocol Last Admin: 02/20/17 09:32 Dose: 50 mls/hr Vancomycin HCl 1,250 mg/ (Dextrose) 250 mls @ 166.667 mls/hr IVPB DAILY [facility] PRN Reason: Protocol Last Admin: 02/20/17 11:14 Dose: 166.667 mls/hr Lactobacillus Acidophilus (Bacid -) 1 tab PO DAILY [facility] Last Admin: 02/20/17 09:21 Dose: 1 tab Metoprolol Succinate (Toprol Xl -) 50 mg PO DAILY [facility] Last Admin: 02/20/17 09:21 Dose: 50 mg Ondansetron HCl (Zofran Injection) 4 mg IVPB Q6H PRN PRN Reason: NAUSEA Oxycodone HCl (Roxicodone -) 10 mg PO Q4H PRN PRN Reason: PAIN Last Admin: 02/20/17 09:30 Dose: 10 mg Polyethylene Glycol (Miralax (For Daily Use) -) 17 gm PO DAILY [facility] Last Admin: 02/20/17 09:21 Dose: Not Given - Objective Vital Signs: Vital Signs Temperature 98.4 F 02/20/17 14:38 Pulse Rate 106 H 02/20/17 14:38 Respiratory Rate 16 02/20/17 14:38 Blood Pressure 138/63 02/20/17 14:38 O2 Sat by Pulse Oximetry (%) 98 02/20/17 09:00 Constitutional: Yes: Calm, Mild Distress (from pain) Eyes: Yes: WNL HENT: Yes: WNL Neck: Yes: WNL Cardiovascular: Yes: Regular Rate and Rhythm Respiratory: Yes: Regular Gastrointestinal: Yes: Normal Bowel Sounds, Soft Genitourinary: Yes: WNL Musculoskeletal: Yes: Joint Swelling (Rt shoulder pain, fluid aspirated) Neurological: Yes: Alert, Oriented Labs: CBC, BMP 02/20/17 07:00 02/20/17 07:00 Microbiology 02/19/17 10:00 Gram Stain - Final Synovial Fluid - Shoulder Body Fluid Culture - Preliminary Strep Agalactiae Group B 02/17/17 10:10 Blood Culture - Preliminary Blood - Peripheral Venous NO GROWTH OBTAINED AFTER 72 HOURS, INCUBATION TO CONTINUE FOR 2 DAYS. 02/17/17 10:00 Blood Culture - Preliminary Blood - Peripheral Venous NO GROWTH OBTAINED AFTER 72 HOURS, INCUBATION TO CONTINUE FOR 2 DAYS. Problem List - Problems (1) ALBER (acute kidney injury) Code(s): N17.9 - ACUTE KIDNEY FAILURE, UNSPECIFIED (2) CKD (chronic kidney disease) Code(s): N18.9 - CHRONIC KIDNEY DISEASE, UNSPECIFIED Qualifiers: Chronic kidney disease stage: stage 3 (moderate) Qualified Code(s): N18.3 - Chronic kidney disease, stage 3 (moderate) (3) Elevated liver enzymes Code(s): R74.8 - ABNORMAL LEVELS OF OTHER SERUM ENZYMES (4) Gout Code(s): M10.9 - GOUT, UNSPECIFIED (5) CAD (coronary artery disease) Code(s): I25.10 - ATHSCL HEART DISEASE OF [place] CORONARY ARTERY W/O ANG PCTRS (6) Fever Code(s): R50.9 - FEVER, UNSPECIFIED Assessment/Plan s/p Rt shoulder fluid aspiration continue current antibiotics needs better pain control temps mildly elevated, continue monitor f/u final fluid culture results
[2017-02-20] MEDS: ZOLPIDEM TARTRATE 5 MG TABLET PO PRN (23:07)
[2017-02-21] MEDS: oxyCODONE HCL 5 MG TABLET PO PRN ×3 (03:06→21:30)
[2017-02-21 08:12] LABS: MCHC 32.3 g/dl (32.0-35.9); MEAN CELL VOLUME 86.6 fl (80-96); PLATELET COUNT 502 K/MM3 (134-434); RDW 15.9 % (11.9-15.9); WHITE BLOOD COUNT 11.4 K/mm3 (4.0-10.0)
--- NOTE | 2017-02-21 08:20 | PN ---
Progress Note, Physician History of Present Illness: Shoulder feels slightly better today. Left foot still bothering him. - Current Medication List Current Medications: Active Medications Allopurinol (Zyloprim -) 100 mg PO DAILY [facility] Last Admin: 02/20/17 09:21 Dose: 100 mg Amlodipine Besylate (Norvasc -) 5 mg PO DAILY [facility] Last Admin: 02/20/17 09:21 Dose: 5 mg Docusate Sodium (Colace -) 100 mg PO BID [facility] Last Admin: 02/20/17 21:40 Dose: Not Given Ertapenem 1 gm/ Sodium (Chloride) 50 mls @ 50 mls/hr IVPB DAILY [facility] PRN Reason: Protocol Last Admin: 02/20/17 09:32 Dose: 50 mls/hr Vancomycin HCl 1,250 mg/ (Dextrose) 250 mls @ 166.667 mls/hr IVPB DAILY [facility] PRN Reason: Protocol Last Admin: 02/20/17 11:14 Dose: 166.667 mls/hr Lactobacillus Acidophilus (Bacid -) 1 tab PO DAILY [facility] Last Admin: 02/20/17 09:21 Dose: 1 tab Metoprolol Succinate (Toprol Xl -) 50 mg PO DAILY [facility] Last Admin: 02/20/17 09:21 Dose: 50 mg Ondansetron HCl (Zofran Injection) 4 mg IVPB Q6H PRN PRN Reason: NAUSEA Oxycodone HCl (Roxicodone -) 10 mg PO Q4H PRN PRN Reason: PAIN Last Admin: 02/21/17 03:06 Dose: 10 mg Polyethylene Glycol (Miralax (For Daily Use) -) 17 gm PO DAILY [facility] Last Admin: 02/20/17 09:21 Dose: Not Given Zolpidem Tartrate (Ambien -) 5 mg PO HS PRN PRN Reason: INSOMNIA Last Admin: 02/20/17 23:07 Dose: 5 mg - Objective Vital Signs: Vital Signs Temperature 99.6 F 02/21/17 06:00 Pulse Rate 97 H 02/21/17 06:00 Respiratory Rate 18 02/21/17 06:00 Blood Pressure 131/64 02/21/17 06:00 O2 Sat by Pulse Oximetry (%) 98 02/20/17 21:00 Constitutional: Yes: No Distress, Calm Cardiovascular: Yes: Regular Rate and Rhythm, S1, S2. No: Murmur Respiratory: Yes: Regular, CTA Bilaterally. No: Rales, Rhonchi, Wheezes Gastrointestinal: Yes: Normal Bowel Sounds, Soft. No: Distention, Tenderness Extremities: Yes: Other (left shoulder with fading erythema, less crepitus) Edema: No Neurological: Yes: Alert, Oriented Labs: CBC, BMP 02/21/17 07:00 Assessment/Plan Current Active Problems ALBER (acute kidney injury) (Acute) CKD (chronic kidney disease) (Acute) Cellulitis of multiple sites of upper limb and shoulder (Acute) Elevated liver enzymes (Acute) Gout (Acute) -seems to have a positive effect from Colcrys (less pain) -will give one more dose -cont abx
[2017-02-21] MEDS ORDERED: COLCHICINE 0.6 MG TABLET (FP) PO ONE (08:21)
[2017-02-21 08:44] LABS: ALBUMIN 1.9 g/dl (3.4-5.0); ANION GAP 10 (8-16); CALCIUM 8.7 mg/dL (8.5-10.1); CO2 25 mmol/L (21-32); GLUCOSE,RANDOM 89 mg/dL (74-106)
[2017-02-21 08:47] LABS: ALK PHOS 461 U/L (45-117); BILIRUBIN,TOTAL 0.8 mg/dL (0.2-1.0); CREATININE 1.8 mg/dL (0.7-1.3); SGOT/AST 92 U/L (15-37); SGPT/ALT 103 U/L (12-78); TOT PROT 6.2 g/dl (6.4-8.2)
[2017-02-21] MEDS: ERTAPENEM SODIUM 1 GM in SODIUM CHLORIDE 50 ML IVPB SCH (09:50)
[2017-02-21 09:51] LABS: PLATELET COMMENT2 NO CLOTTING DETECTED; PLATELET COMMENT3 FEW LARGE PLTS; PLATELET ESTIMATE INCREASED (NORMAL); TOTAL CELLS COUNTED 100
[2017-02-21] MEDS ORDERED: PT OWN MED DRAWER 7, Y5N ONE (10:03)
[2017-02-21] MEDS: DOCUSATE SODIUM 100 MG CAPSULE (FP) PO SCH ×2 (10:06→21:25)
[2017-02-21] MEDS: amLODIPine BESYLATE 5 MG TABLET (FP) PO SCH (10:06)
[2017-02-21] MEDS: LACTOBACILLUS ACIDOPHILUS 1 EACH TAB (FP) PO SCH (10:06)
[2017-02-21] MEDS: POLYETHYLENE GLYCOL 3350 119 GM BTL PO SCH (10:06)
[2017-02-21] MEDS: METOPROLOL SUCCINATE 50 MG TAB.SR.24H (FP) PO SCH (10:06)
[2017-02-21] MEDS: ALLOPURINOL 100 MG TABLET (FP) PO SCH (10:06)
[2017-02-21] MEDS: VANCOMYCIN 1,250 MG in DEXTROSE 5%-WATER - 250 ML IVPB SCH (10:29)
--- NOTE | 2017-02-21 10:31 | PN ---
GI Progress Note Subjective: GI NOte: Sonogram is unremarkable. Continues with right shoulder discomfort. No abdominal pain. LFTs are rising. Synovial fluid growing Group B strep but oddly gram stain is negative. - Objective Vital Signs: Vital Signs Temperature 99.6 F 02/21/17 06:00 Pulse Rate 97 H 02/21/17 06:00 Respiratory Rate 18 02/21/17 06:00 Blood Pressure 131/64 02/21/17 06:00 O2 Sat by Pulse Oximetry (%) 98 02/20/17 21:00 Laboratory Tests 02/18/17 02/18/17 02/19/17 07:00 07:00 06:30 WBC Plt Count Total Bilirubin 0.7 Direct Bilirubin AST 39 H 44 H ALT 82 H D 69 Alkaline Phosphatase 466 H 441 H C-Reactive Protein 37.2 H Albumin 02/20/17 02/21/17 02/21/17 07:00 07:00 07:00 WBC 11.4 H Plt Count 502 H Total Bilirubin 0.5 0.8 D Direct Bilirubin 0.2 AST 55 H D 92 H D ALT 78 103 H D Alkaline Phosphatase 460 H 461 H C-Reactive Protein Albumin 1.9 L Constitutional: Calm ...Auscultate: Yes: Normoactive Bowel Sounds ...Palpate: Yes: Soft, Other (nontender) Labs: CBC, BMP 02/21/17 07:00 02/21/17 07:00 Assessment/Plan Reactive hepatopathy vs liver microabscesses. Will screen for hemachromatosis and autoimmune hepatitis. If LFTs continue to rise will need CT or MRI of liver.
--- NOTE | 2017-02-21 14:09 | PN ---
Progress Note, Physician History of Present Illness: Events noted. Patient still c/o pain in Rt shoulder. Temp 99.6 earlier today, currently afebrile. No other specific complaints. - Current Medication List Current Medications: Active Medications Allopurinol (Zyloprim -) 100 mg PO DAILY [facility] Last Admin: 02/21/17 10:06 Dose: 100 mg Amlodipine Besylate (Norvasc -) 5 mg PO DAILY [facility] Last Admin: 02/21/17 10:06 Dose: 5 mg Docusate Sodium (Colace -) 100 mg PO BID [facility] Last Admin: 02/21/17 10:06 Dose: Not Given Ertapenem 1 gm/ Sodium (Chloride) 50 mls @ 50 mls/hr IVPB DAILY [facility] PRN Reason: Protocol Last Admin: 02/21/17 09:50 Dose: 50 mls/hr Vancomycin HCl 1,250 mg/ (Dextrose) 250 mls @ 166.667 mls/hr IVPB DAILY [facility] PRN Reason: Protocol Last Admin: 02/21/17 10:29 Dose: 166.667 mls/hr Lactobacillus Acidophilus (Bacid -) 1 tab PO DAILY [facility] Last Admin: 02/21/17 10:06 Dose: 1 tab Metoprolol Succinate (Toprol Xl -) 50 mg PO DAILY [facility] Last Admin: 02/21/17 10:06 Dose: 50 mg Ondansetron HCl (Zofran Injection) 4 mg IVPB Q6H PRN PRN Reason: NAUSEA Oxycodone HCl (Roxicodone -) 10 mg PO Q4H PRN PRN Reason: PAIN Last Admin: 02/21/17 13:19 Dose: 10 mg Polyethylene Glycol (Miralax (For Daily Use) -) 17 gm PO DAILY [facility] Last Admin: 02/21/17 10:06 Dose: Not Given Zolpidem Tartrate (Ambien -) 5 mg PO HS PRN PRN Reason: INSOMNIA Last Admin: 02/20/17 23:07 Dose: 5 mg - Objective Vital Signs: Vital Signs Temperature 98.1 F 02/21/17 09:00 Pulse Rate 120 H 02/21/17 09:00 Respiratory Rate 16 02/21/17 09:00 Blood Pressure 128/70 02/21/17 09:00 O2 Sat by Pulse Oximetry (%) 99 02/21/17 09:00 Constitutional: Yes: No Distress, Calm Eyes: Yes: WNL HENT: Yes: WNL Cardiovascular: Yes: Tachycardia Respiratory: Yes: Regular Gastrointestinal: Yes: Normal Bowel Sounds, Soft Genitourinary: Yes: WNL Extremities: Yes: Erythema (RUE with mild erythema), Other (Rt shoulder tenderness) Neurological: Yes: Alert, Oriented Labs: CBC, BMP 02/21/17 07:00 02/21/17 07:00 Abnormal Lab Results 02/21/17 02/21/17 07:00 07:00 WBC 11.4 H RBC 3.58 L Hgb 10.0 L Hct 31.0 L Plt Count 502 H Potassium 5.5 H BUN 37 H D Creatinine 1.8 H AST 92 H D ALT 103 H D Alkaline Phosphatase 461 H Total Protein 6.2 L Albumin 1.9 L - ....Imaging Ultrasound: Report Reviewed (Abd) Problem List - Problems (1) ALBER (acute kidney injury) Code(s): N17.9 - ACUTE KIDNEY FAILURE, UNSPECIFIED (2) CKD (chronic kidney disease) Code(s): N18.9 - CHRONIC KIDNEY DISEASE, UNSPECIFIED Qualifiers: Chronic kidney disease stage: stage 3 (moderate) Qualified Code(s): N18.3 - Chronic kidney disease, stage 3 (moderate) (3) Elevated liver enzymes Code(s): R74.8 - ABNORMAL LEVELS OF OTHER SERUM ENZYMES (4) Gout Code(s): M10.9 - GOUT, UNSPECIFIED (5) CAD (coronary artery disease) Code(s): I25.10 - ATHSCL HEART DISEASE OF [place] CORONARY ARTERY W/O ANG PCTRS (6) Fever Code(s): R50.9 - FEVER, UNSPECIFIED Assessment/Plan RUE cellulitis Rt shoulder joint aspirate +GBS Elevated LFTs - possibly reactive, Hep A Igm/B/C Ab nonreactive Gout d/c Ertapenem, Continue Vancomycin for now follow up final aspirate culture results monitor LFTs, GI following monitor wbc/temps pain control
[2017-02-22] MEDS: oxyCODONE HCL 5 MG TABLET PO PRN ×2 (06:28→18:59)
[2017-02-22 07:33] LABS: BASOPHIL 1.1 % (0-2.0); EOSINOPHIL 0.3 % (0-4.5); MCH 27.9 pg (25.7-33.7); MCHC 32.5 g/dl (32.0-35.9); NEUTROPHILS 78.3 % (42.8-82.8); PLATELET COUNT 629 K/MM3 (134-434); RDW 15.9 % (11.9-15.9); WHITE BLOOD COUNT 9.8 K/mm3 (4.0-10.0)
[2017-02-22 08:20] LABS: ALBUMIN 1.9 g/dl (3.4-5.0); ALK PHOS 433 U/L (45-117); ANION GAP 10 (8-16); BILIRUBIN,TOTAL 0.5 mg/dL (0.2-1.0); CALCIUM 8.9 mg/dL (8.5-10.1); CO2 27 mmol/L (21-32); CREATININE 1.9 mg/dL (0.7-1.3); GLUCOSE,RANDOM 93 mg/dL (74-106); SGOT/AST 86 U/L (15-37); SGPT/ALT 106 U/L (12-78); TOT PROT 6.1 g/dl (6.4-8.2)
[2017-02-22 08:23] LABS: FERRITIN 771.299 ng/ml (16.4-293.9)
[2017-02-22 08:26] LABS: C-REACTIVE PROTEIN 17.3 MG/DL (0.00-0.3)
[2017-02-22] MEDS: amLODIPine BESYLATE 5 MG TABLET (FP) PO SCH (10:34)
[2017-02-22] MEDS: LACTOBACILLUS ACIDOPHILUS 1 EACH TAB (FP) PO SCH (10:34)
[2017-02-22] MEDS: METOPROLOL SUCCINATE 50 MG TAB.SR.24H (FP) PO SCH (10:34)
[2017-02-22] MEDS: ERTAPENEM SODIUM 1 GM in SODIUM CHLORIDE 50 ML IVPB SCH (10:34)
[2017-02-22] MEDS: ALLOPURINOL 100 MG TABLET (FP) PO SCH (10:34)
[2017-02-22] MEDS: METHYL SALICYLATE/MENTHOL OINT 30 GM TUBE TP SCH ×2 (10:35→21:56)
[2017-02-22] MEDS: DOCUSATE SODIUM 100 MG CAPSULE (FP) PO SCH ×2 (10:35→21:56)
[2017-02-22] MEDS: POLYETHYLENE GLYCOL 3350 119 GM BTL PO SCH (10:35)
[2017-02-22] MEDS: VANCOMYCIN 1,250 MG in DEXTROSE 5%-WATER - 250 ML IVPB SCH (10:36)
--- NOTE | 2017-02-22 11:14 | PN ---
Progress Note, Physician History of Present Illness: Feels the same, shoulder still painful in one anterior spot. Foot feeling a little better today. - Current Medication List Current Medications: Active Medications Allopurinol (Zyloprim -) 100 mg PO DAILY [facility] Last Admin: 02/22/17 10:34 Dose: 100 mg Amlodipine Besylate (Norvasc -) 5 mg PO DAILY [facility] Last Admin: 02/22/17 10:34 Dose: 5 mg Docusate Sodium (Colace -) 100 mg PO BID [facility] Last Admin: 02/22/17 10:35 Dose: Not Given Ertapenem 1 gm/ Sodium (Chloride) 50 mls @ 50 mls/hr IVPB DAILY [facility] PRN Reason: Protocol Last Admin: 02/22/17 10:34 Dose: 50 mls/hr Vancomycin HCl 1,250 mg/ (Dextrose) 250 mls @ 166.667 mls/hr IVPB DAILY [facility] PRN Reason: Protocol Last Admin: 02/22/17 10:36 Dose: Not Given Lactobacillus Acidophilus (Bacid -) 1 tab PO DAILY [facility] Last Admin: 02/22/17 10:34 Dose: 1 tab Methyl Salicylate (Hilario-Sheppard -) 1 applic TP BID [facility] Last Admin: 02/22/17 10:35 Dose: 1 applic Metoprolol Succinate (Toprol Xl -) 50 mg PO DAILY [facility] Last Admin: 02/22/17 10:34 Dose: 50 mg Ondansetron HCl (Zofran Injection) 4 mg IVPB Q6H PRN PRN Reason: NAUSEA Oxycodone HCl (Roxicodone -) 10 mg PO Q4H PRN PRN Reason: PAIN Last Admin: 02/22/17 06:28 Dose: 10 mg Polyethylene Glycol (Miralax (For Daily Use) -) 17 gm PO DAILY [facility] Last Admin: 02/22/17 10:35 Dose: Not Given Zolpidem Tartrate (Ambien -) 5 mg PO HS PRN PRN Reason: INSOMNIA Last Admin: 02/20/17 23:07 Dose: 5 mg - Objective Vital Signs: Vital Signs Temperature 98.6 F 02/22/17 06:00 Pulse Rate 99 H 02/22/17 06:00 Respiratory Rate 20 02/22/17 06:00 Blood Pressure 115/62 02/22/17 06:00 O2 Sat by Pulse Oximetry (%) 97 02/21/17 20:12 Constitutional: Yes: No Distress, Calm Neck: Yes: Supple, Trachea Midline Cardiovascular: Yes: Regular Rate and Rhythm, S1, S2. No: Murmur Respiratory: Yes: Regular, CTA Bilaterally. No: Rales, Rhonchi, Wheezes Gastrointestinal: Yes: Normal Bowel Sounds, Soft. No: Distention, Tenderness Extremities: Yes: Other (right shoulder with pain to palpation anteriorly, mild fading erythema) Edema: No Labs: CBC, BMP 02/22/17 06:00 02/22/17 06:00 Assessment/Plan Current Active Problems ALBER (acute kidney injury) (Acute) CKD (chronic kidney disease) (Acute) Cellulitis of multiple sites of upper limb and shoulder (Acute) Elevated liver enzymes (Acute) Gout (Acute) -cont abx -follow LFT's (GI following as well) -may need further liver imaging if remains elevated
--- NOTE | 2017-02-22 13:48 | PN ---
GI Progress Note Subjective: GI NOte> Right should pain perisist. LFT elevations persist. Joint culture confirm Group B strep. Azzotemia precludes a contrast imaging to exclude liver abscesses so will start IV. - Objective Vital Signs: Vital Signs Temperature 97.8 F 02/22/17 09:00 Pulse Rate 108 H 02/22/17 09:00 Respiratory Rate 16 02/22/17 09:00 Blood Pressure 131/63 02/22/17 09:00 O2 Sat by Pulse Oximetry (%) 97 02/22/17 09:00 Microbiology 02/19/17 10:00 Synovial Fluid - Shoulder Gram Stain - Final 02/19/17 10:00 Synovial Fluid - Shoulder Anaerobic Culture - Final Strep Agalactiae Group B NO ANAEROBES WERE ISOLATED Laboratory Tests 02/20/17 02/20/17 02/21/17 07:00 07:00 07:00 WBC BUN 30 H 37 H D Creatinine 1.7 H 1.8 H Ferritin GGT AST 55 H D 92 H D ALT 78 103 H D Alkaline Phosphatase 460 H 461 H C-Reactive Protein Albumin Total Amylase Lipase 02/22/17 02/22/17 02/22/17 06:00 06:00 06:00 WBC 9.8 BUN 42 H Creatinine 1.9 H Ferritin 771.299 H GGT 305 H D AST 86 H ALT 106 H Alkaline Phosphatase 433 H C-Reactive Protein 17.3 H D Albumin 1.9 L Total Amylase 46 Lipase 115 Constitutional: Calm ...Auscultate: Yes: Normoactive Bowel Sounds ...Palpate: Yes: Soft, Other (nontender, no hepatomegaly) Labs: CBC, BMP 02/22/17 06:00 02/22/17 06:00 Assessment/Plan Reactive hepatopathy vs liver abscesses. Will start IV fluids to resuscitate kidneys in hope of pursuing a contrast CT or MRI if LFTs don't improve.
--- NOTE | 2017-02-22 14:25 | PN ---
Progress Note, Physician History of Present Illness: still no movement of the shoulder pain present cx result noted patient says he does not feel much better - Current Medication List Current Medications: Active Medications Allopurinol (Zyloprim -) 100 mg PO DAILY [facility] Last Admin: 02/22/17 10:34 Dose: 100 mg Amlodipine Besylate (Norvasc -) 5 mg PO DAILY [facility] Last Admin: 02/22/17 10:34 Dose: 5 mg Ceftriaxone Sodium (Rocephin 2gm Ivpb (Pre-Docked)) 2 gm IVPB DAILY [facility] PRN Reason: Protocol Docusate Sodium (Colace -) 100 mg PO BID [facility] Last Admin: 02/22/17 10:35 Dose: Not Given Dextrose/Sodium Chloride (D5-1/2ns -) 1,000 mls @ 125 mls/hr IV ASDIR [facility] Lactobacillus Acidophilus (Bacid -) 1 tab PO DAILY [facility] Last Admin: 02/22/17 10:34 Dose: 1 tab Methyl Salicylate (Hilario-Sheppard -) 1 applic TP BID [facility] Last Admin: 02/22/17 10:35 Dose: 1 applic Metoprolol Succinate (Toprol Xl -) 50 mg PO DAILY [facility] Last Admin: 02/22/17 10:34 Dose: 50 mg Ondansetron HCl (Zofran Injection) 4 mg IVPB Q6H PRN PRN Reason: NAUSEA Oxycodone HCl (Roxicodone -) 10 mg PO Q4H PRN PRN Reason: PAIN Last Admin: 02/22/17 06:28 Dose: 10 mg Polyethylene Glycol (Miralax (For Daily Use) -) 17 gm PO DAILY [facility] Last Admin: 02/22/17 10:35 Dose: Not Given Zolpidem Tartrate (Ambien -) 5 mg PO HS PRN PRN Reason: INSOMNIA Last Admin: 02/20/17 23:07 Dose: 5 mg - Objective Vital Signs: Vital Signs Temperature 97.8 F 02/22/17 09:00 Pulse Rate 108 H 02/22/17 09:00 Respiratory Rate 16 02/22/17 09:00 Blood Pressure 131/63 02/22/17 09:00 O2 Sat by Pulse Oximetry (%) 97 02/22/17 09:00 Constitutional: Yes: No Distress, Calm Eyes: Yes: Conjunctiva Clear Cardiovascular: Yes: Regular Rate and Rhythm Respiratory: Yes: Regular, CTA Bilaterally Gastrointestinal: Yes: Normal Bowel Sounds, Soft Musculoskeletal: Yes: Other Extremities: Yes: Other (not able to lift up the left arm) Neurological: Yes: Alert, Oriented Psychiatric: Yes: Alert, Oriented Labs: CBC, BMP 02/22/17 06:00 02/22/17 06:00 Assessment/Plan Problem List - Problems (1) Cellulitis of multiple sites of upper limb and shoulder Code(s): L03.119 - CELLULITIS OF UNSPECIFIED PART OF LIMB (2) ALBER (acute kidney injury) Code(s): N17.9 - ACUTE KIDNEY FAILURE, UNSPECIFIED (3) CKD (chronic kidney disease) Code(s): N18.9 - CHRONIC KIDNEY DISEASE, UNSPECIFIED Qualifiers: Chronic kidney disease stage: stage 3 (moderate) Qualified Code(s): N18.3 - Chronic kidney disease, stage 3 (moderate) (4) Elevated liver enzymes Code(s): R74.8 - ABNORMAL LEVELS OF OTHER SERUM ENZYMES (5) CAD (coronary artery disease) Code(s): I25.10 - ATHSCL HEART DISEASE OF [place] CORONARY ARTERY W/O ANG PCTRS (6) Hypertension Code(s): I10 - ESSENTIAL (PRIMARY) HYPERTENSION (7) Gout Code(s): M10.9 - GOUT, UNSPECIFIED plan cx report noted changed abx to ceftriaxone
[2017-02-22] MEDS ORDERED: cefTRIAXone 2 GM/100 ML BAG (PRE-DOCKED) IVPB SCH (14:30)
[2017-02-22] MEDS ORDERED: DEXTROSE 5%-WATER 100 ML IVPB ONE (16:02)
[2017-02-22] MEDS: DEXTROSE 5%-0.45% SALINE 1,000 ML IV SCH (16:07)
[2017-02-22] MEDS: CEFTRIAXONE 2 GM in DEXTROSE 5%-WATER 100 ML IVPB SCH (16:07)
--- NOTE | 2017-02-22 18:43 | PN ---
Progress Note (short form) - Note Progress Note: Pt seen and examined. He states his right shoulder feels better s/p aspiration. AVSS WBC = 9.8 (IMPROVED) Aspirate culture = + for Group B Strep On antibiotics I agree, I think the right shoulder looks better, less swollen, less erythema. Still with very poor active ROM Rec - con't abx, this is a patient of Dr Berry, he should be contacted to come here to do a consult
[2017-02-22] MEDS: ZOLPIDEM TARTRATE 5 MG TABLET PO PRN (21:56)
[2017-02-23] MEDS: oxyCODONE HCL 5 MG TABLET PO PRN ×3 (00:08→19:57)
[2017-02-23 06:07] LABS: SERUM IRON 18 ug/dL (38-169); TOTAL IRON BINDING CAPACITY 219 ug/dL (250-450); UIBC 201 ug/dL (111-343)
[2017-02-23 08:01] LABS: BASOPHIL 0.5 % (0-2.0); EOSINOPHIL 0.4 % (0-4.5); MCH 28.6 pg (25.7-33.7); MEAN CELL VOLUME 86.6 fl (80-96); MEAN PLT VOLUME 8.5 fl (7.5-11.1); NEUTROPHILS 78.4 % (42.8-82.8); PLATELET COUNT 706 K/MM3 (134-434); RDW 15.4 % (11.9-15.9); WHITE BLOOD COUNT 8.2 K/mm3 (4.0-10.0)
[2017-02-23 08:54] LABS: ALBUMIN 1.8 g/dl (3.4-5.0); ALK PHOS 360 U/L (45-117); ANION GAP 11 (8-16); BILIRUBIN,TOTAL 0.4 mg/dL (0.2-1.0); CALCIUM 8.5 mg/dL (8.5-10.1); CO2 27 mmol/L (21-32); CREATININE 1.7 mg/dL (0.7-1.3); GLUCOSE,RANDOM 92 mg/dL (74-106); SGOT/AST 62 U/L (15-37); SGPT/ALT 88 U/L (12-78); TOT PROT 5.8 g/dl (6.4-8.2)
[2017-02-23 08:55] LABS: ALBUMIN 1.8 g/dl (3.4-5.0); ALK PHOS 355 U/L (45-117); BILIRUBIN,DIRECT < 0.2 mg/dL (0.0-0.2); BILIRUBIN,TOTAL 0.7 mg/dL (0.2-1.0); C-REACTIVE PROTEIN 14.4 MG/DL (0.00-0.3); SGOT/AST 65 U/L (15-37); SGPT/ALT 90 U/L (12-78); TOT PROT 5.7 g/dl (6.4-8.2)
[2017-02-23] MEDS ORDERED: DEXTROSE 5%-WATER 100 ML IVPB ONE (09:34)
[2017-02-23] MEDS: LACTOBACILLUS ACIDOPHILUS 1 EACH TAB (FP) PO SCH (09:36)
[2017-02-23] MEDS: DOCUSATE SODIUM 100 MG CAPSULE (FP) PO SCH ×2 (09:36→21:12)
[2017-02-23] MEDS: ALLOPURINOL 100 MG TABLET (FP) PO SCH (09:36)
[2017-02-23] MEDS: amLODIPine BESYLATE 5 MG TABLET (FP) PO SCH (09:36)
[2017-02-23] MEDS: METOPROLOL SUCCINATE 50 MG TAB.SR.24H (FP) PO SCH (09:36)
[2017-02-23] MEDS: CEFTRIAXONE 2 GM in DEXTROSE 5%-WATER 100 ML IVPB SCH (09:37)
[2017-02-23] MEDS: POLYETHYLENE GLYCOL 3350 119 GM BTL PO SCH (09:37)
[2017-02-23] MEDS: METHYL SALICYLATE/MENTHOL OINT 30 GM TUBE TP SCH ×2 (09:37→21:12)
--- NOTE | 2017-02-23 11:27 | PN ---
Progress Note, Physician Chief Complaint: Mr Jones complains of R shoulder pain and inability to move it. No cp, sob, n/v. - Current Medication List Current Medications: Active Medications Allopurinol (Zyloprim -) 100 mg PO DAILY [facility] Last Admin: 02/23/17 09:36 Dose: 100 mg Amlodipine Besylate (Norvasc -) 5 mg PO DAILY [facility] Last Admin: 02/23/17 09:36 Dose: 5 mg Docusate Sodium (Colace -) 100 mg PO BID [facility] Last Admin: 02/23/17 09:36 Dose: 100 mg Dextrose/Sodium Chloride (D5-1/2ns -) 1,000 mls @ 125 mls/hr IV ASDIR [facility] Last Admin: 02/22/17 16:07 Dose: 125 mls/hr Ceftriaxone Sodium 2 gm/ (Dextrose) 100 mls @ 200 mls/hr IVPB DAILY [facility] Last Admin: 02/23/17 09:37 Dose: 200 mls/hr Lactobacillus Acidophilus (Bacid -) 1 tab PO DAILY [facility] Last Admin: 02/23/17 09:36 Dose: 1 tab Methyl Salicylate (Hilario-Sheppard -) 1 applic TP BID [facility] Last Admin: 02/23/17 09:37 Dose: 1 applic Metoprolol Succinate (Toprol Xl -) 50 mg PO DAILY [facility] Last Admin: 02/23/17 09:36 Dose: 50 mg Ondansetron HCl (Zofran Injection) 4 mg IVPB Q6H PRN PRN Reason: NAUSEA Oxycodone HCl (Roxicodone -) 10 mg PO Q4H PRN PRN Reason: PAIN Last Admin: 02/23/17 06:01 Dose: 10 mg Polyethylene Glycol (Miralax (For Daily Use) -) 17 gm PO DAILY [facility] Last Admin: 02/23/17 09:37 Dose: Not Given Zolpidem Tartrate (Ambien -) 5 mg PO HS PRN PRN Reason: INSOMNIA Last Admin: 02/22/17 21:56 Dose: 5 mg - Objective Vital Signs: Vital Signs Temperature 37.4 C 02/23/17 07:18 Pulse Rate 76 02/23/17 07:18 Respiratory Rate 20 02/23/17 07:18 Blood Pressure 128/60 02/23/17 07:18 O2 Sat by Pulse Oximetry (%) 96 02/22/17 21:00 Constitutional: Yes: Well Nourished, No Distress, Calm Cardiovascular: Yes: Regular Rate and Rhythm. No: Gallop, Murmur, Rub Respiratory: Yes: Regular, CTA Bilaterally. No: Rales, Rhonchi, Wheezes Gastrointestinal: Yes: Normal Bowel Sounds, Soft. No: Distention, Tenderness Extremities: Yes: WNL Edema: No Labs: CBC, BMP 02/23/17 06:00 02/23/17 06:00 Problem List - Problems (1) Septic joint of right shoulder region Code(s): M00.9 - PYOGENIC ARTHRITIS, UNSPECIFIED (2) Cellulitis of multiple sites of upper limb and shoulder Code(s): L03.119 - CELLULITIS OF UNSPECIFIED PART OF LIMB (3) ALBER (acute kidney injury) Code(s): N17.9 - ACUTE KIDNEY FAILURE, UNSPECIFIED (4) CKD (chronic kidney disease) Code(s): N18.9 - CHRONIC KIDNEY DISEASE, UNSPECIFIED Qualifiers: Chronic kidney disease stage: stage 3 (moderate) Qualified Code(s): N18.3 - Chronic kidney disease, stage 3 (moderate) (5) Elevated liver enzymes Code(s): R74.8 - ABNORMAL LEVELS OF OTHER SERUM ENZYMES (6) CAD (coronary artery disease) Code(s): I25.10 - ATHSCL HEART DISEASE OF [place] CORONARY ARTERY W/O ANG PCTRS (7) Hypertension Code(s): I10 - ESSENTIAL (PRIMARY) HYPERTENSION (8) Gout Code(s): M10.9 - GOUT, UNSPECIFIED Assessment/Plan (1) Septic R shoulder joint with cellulitis Assessment/Plan: -cultures growing GBS -on rocephin per ID recommendations -leukocytosis resolved -case d/w Dr [place] and Dr Davison, Dr Davison to come see and evaluate Code(s): L03.119 - CELLULITIS OF UNSPECIFIED PART OF LIMB (2) ALBER (acute kidney injury) Assessment/Plan: -back at baseline Code(s): N17.9 - ACUTE KIDNEY FAILURE, UNSPECIFIED (3) CKD (chronic kidney disease) Assessment/Plan: -monitor -with azotemia which is preventing further evaluating liver -consult nephrology for assistance Code(s): N18.9 - CHRONIC KIDNEY DISEASE, UNSPECIFIED Qualifiers: Chronic kidney disease stage: stage 3 (moderate) Qualified Code(s): N18.3 - Chronic kidney disease, stage 3 (moderate) (4) Elevated liver enzymes Assessment/Plan: -appreciate GI assistance -possible CT scan or MRI, will try to improve renal function Code(s): R74.8 - ABNORMAL LEVELS OF OTHER SERUM ENZYMES (5) CAD (coronary artery disease) Assessment/Plan: -continue home regimen Code(s): I25.10 - ATHSCL HEART DISEASE OF [place] CORONARY ARTERY W/O ANG PCTRS (6) Hypertension Assessment/Plan: -continue norvasc -increased toprol xl -lisinopril held secondary to renal function -well controlled on current regimen Code(s): I10 - ESSENTIAL (PRIMARY) HYPERTENSION (7) Gout Assessment/Plan: -continue allopurinol Code(s): M10.9 - GOUT, UNSPECIFIED (8) Hyperkalemia -present -kayexalate -nephrology consult
[2017-02-23] MEDS ORDERED: SODIUM POLYSTYRENE SULFONATE 15 GM/60 ML BOTTLE PO ONE (12:15)
--- NOTE | 2017-02-23 12:47 | PN ---
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 He was followed periodically and was doing well until he stumbled at home and struck his shoulder on a doorway. He had pain and swelling and was advised to ice and use NSAID's for several days. He was seen in my office on and was subjectively improved. He was then seen in the [facility] ER with intractable pain and abnormal labs. WBC was only 10K at that time and ESR was 128. I spoke with Dr. Sherman who felt the shoulder was not acute at that time. An aspiration done on 02/19/17 showed no organisms on Gram stain. Cultures grew Strep B (unclear whether this is plate or broth). Pt. started on antibiotics and seems much better today. Inability to move shoulder may still be due to swelling and discomfort. I was prepared to do arthroscopic lavage, but the shoulder is quiescent at this time. If at all possible, I would prefer to avoid surgery and general anesth. Also, I would like to avoid removing the allograft since that would significantly compromise the use of his shoulder in the future. If he can be treated with longterm antibiotics and repeat aspiration, I think this would be best. Shoulder is not tense at this time. I would like to discuss with ID. I will follow. Ike Davison M.D.
--- NOTE | 2017-02-23 13:13 | PN ---
Progress Note, Physician History of Present Illness: patient stable no new issues says he feels better hand looks better swelling has decreased - Current Medication List Current Medications: Active Medications Allopurinol (Zyloprim -) 100 mg PO DAILY [facility] Last Admin: 02/23/17 09:36 Dose: 100 mg Amlodipine Besylate (Norvasc -) 5 mg PO DAILY [facility] Last Admin: 02/23/17 09:36 Dose: 5 mg Docusate Sodium (Colace -) 100 mg PO BID [facility] Last Admin: 02/23/17 09:36 Dose: 100 mg Dextrose/Sodium Chloride (D5-1/2ns -) 1,000 mls @ 125 mls/hr IV ASDIR [facility] Last Admin: 02/22/17 16:07 Dose: 125 mls/hr Ceftriaxone Sodium 2 gm/ (Dextrose) 100 mls @ 200 mls/hr IVPB DAILY [facility] Last Admin: 02/23/17 09:37 Dose: 200 mls/hr Lactobacillus Acidophilus (Bacid -) 1 tab PO DAILY [facility] Last Admin: 02/23/17 09:36 Dose: 1 tab Methyl Salicylate (Hilario-Sheppard -) 1 applic TP BID [facility] Last Admin: 02/23/17 09:37 Dose: 1 applic Metoprolol Succinate (Toprol Xl -) 50 mg PO DAILY [facility] Last Admin: 02/23/17 09:36 Dose: 50 mg Ondansetron HCl (Zofran Injection) 4 mg IVPB Q6H PRN PRN Reason: NAUSEA Oxycodone HCl (Roxicodone -) 10 mg PO Q4H PRN PRN Reason: PAIN Last Admin: 02/23/17 06:01 Dose: 10 mg Polyethylene Glycol (Miralax (For Daily Use) -) 17 gm PO DAILY [facility] Last Admin: 02/23/17 09:37 Dose: Not Given Zolpidem Tartrate (Ambien -) 5 mg PO HS PRN PRN Reason: INSOMNIA Last Admin: 02/22/17 21:56 Dose: 5 mg - Objective Vital Signs: Vital Signs Temperature 99.4 F 02/23/17 07:18 Pulse Rate 76 02/23/17 07:18 Respiratory Rate 20 02/23/17 07:18 Blood Pressure 128/60 02/23/17 07:18 O2 Sat by Pulse Oximetry (%) 96 02/22/17 21:00 Constitutional: Yes: No Distress, Calm Cardiovascular: Yes: Regular Rate and Rhythm Respiratory: Yes: Regular, CTA Bilaterally Gastrointestinal: Yes: Normal Bowel Sounds, Soft Musculoskeletal: Yes: Other Extremities: Yes: Erythema (minimal of rt hand swelling resolving) Neurological: Yes: Alert, Oriented Psychiatric: Yes: Alert, Oriented Labs: CBC, BMP 02/23/17 06:00 02/23/17 06:00 Assessment/Plan Problem List - Problems (1) Cellulitis of multiple sites of upper limb and shoulder Code(s): L03.119 - CELLULITIS OF UNSPECIFIED PART OF LIMB (2) ALBER (acute kidney injury) Code(s): N17.9 - ACUTE KIDNEY FAILURE, UNSPECIFIED (3) CKD (chronic kidney disease) Code(s): N18.9 - CHRONIC KIDNEY DISEASE, UNSPECIFIED Qualifiers: Chronic kidney disease stage: stage 3 (moderate) Qualified Code(s): N18.3 - Chronic kidney disease, stage 3 (moderate) (4) Elevated liver enzymes Code(s): R74.8 - ABNORMAL LEVELS OF OTHER SERUM ENZYMES (5) CAD (coronary artery disease) Code(s): I25.10 - ATHSCL HEART DISEASE OF [place] CORONARY ARTERY W/O ANG PCTRS (6) Hypertension Code(s): I10 - ESSENTIAL (PRIMARY) HYPERTENSION (7) Gout Code(s): M10.9 - GOUT, UNSPECIFIED ortho note reviewed we can go about this in 2 ways give complete course about 4 weeks more of abx and see how the patient does i just discussed the case with ortho plan we will follow crp repeat ct scan on if collection present will need apsiration again continue abx after we will make the final decision on the next step
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
[2017-02-23 19:29] LABS: URINE APPEARANCE CLEAR; URINE BILIRUBIN NEGATIVE (NEGATIVE); URINE BLOOD NEGATIVE (NEGATIVE); URINE COLOR LTYELLOW; URINE GLUCOSE (UA) NEGATIVE (NEGATIVE); URINE KETONE NEGATIVE (NEGATIVE); URINE LEUK ESTERASE NEGATIVE (NEGATIVE); URINE NITRITE NEGATIVE (NEGATIVE); URINE UROBILINOGEN NEGATIVE mg/dL (0.2-1.0)
[2017-02-23 19:32] LABS: URINE PROTEIN 1+ (NEGATIVE)
[2017-02-23 19:49] LABS: URINE MUCUS RARE; URINE WBC <1 /hpf (3-5)
[2017-02-23] MEDS: ZOLPIDEM TARTRATE 5 MG TABLET PO PRN (21:12)
[2017-02-23] MEDS: DEXTROSE 5%-0.45% SALINE 1,000 ML IV SCH (21:22)
[2017-02-24] MEDS: oxyCODONE HCL 5 MG TABLET PO PRN ×3 (01:39→20:50)
[2017-02-24] MEDS ORDERED: PT OWN MED DRAWER 7, Y5N ONE (06:17)
[2017-02-24 08:55] LABS: BASOPHIL 0.9 % (0-2.0); EOSINOPHIL 0.3 % (0-4.5); MCHC 32.2 g/dl (32.0-35.9); MEAN CELL VOLUME 87.1 fl (80-96); MEAN PLT VOLUME 8.4 fl (7.5-11.1); NEUTROPHILS 80.3 % (42.8-82.8); PLATELET COUNT 886 K/MM3 (134-434); RDW 15.8 % (11.9-15.9); WHITE BLOOD COUNT 8.3 K/mm3 (4.0-10.0)
[2017-02-24] MEDS ORDERED: DEXTROSE 5%-WATER 100 ML IVPB ONE (09:15)
[2017-02-24] MEDS: METOPROLOL SUCCINATE 50 MG TAB.SR.24H (FP) PO SCH (09:17)
[2017-02-24] MEDS: amLODIPine BESYLATE 5 MG TABLET (FP) PO SCH (09:17)
[2017-02-24] MEDS: CEFTRIAXONE 2 GM in DEXTROSE 5%-WATER 100 ML IVPB SCH (09:17)
[2017-02-24] MEDS: ALLOPURINOL 100 MG TABLET (FP) PO SCH (09:17)
[2017-02-24] MEDS: LACTOBACILLUS ACIDOPHILUS 1 EACH TAB (FP) PO SCH (09:17)
[2017-02-24] MEDS: DOCUSATE SODIUM 100 MG CAPSULE (FP) PO SCH ×2 (09:17→22:00)
[2017-02-24] MEDS: POLYETHYLENE GLYCOL 3350 119 GM BTL PO SCH (09:18)
[2017-02-24] MEDS: METHYL SALICYLATE/MENTHOL OINT 30 GM TUBE TP SCH ×2 (09:18→22:00)
--- NOTE | 2017-02-24 12:36 | PN ---
Progress Note (short form) - Note Progress Note: Patient is resting with no new complaints. Shoulder is less tender today. White count has been WNL for several days. Cannot actively lift his arm, but can be passively moved to 120 degrees of forward flexion. Shoulder does not appear tense. Would expect some fluid in shoulder on CT since aspiration can only deliver fluid from the upper half of the shoulder when aspirated from the lili-medial portal. Hopefully, CT can give us a comparative amount in relation to original scan. I agree with plan to cont. 5 weeks of antibiotics. Will defer to ID on whether or not he can be switched to p.o. on Disch. Would also like to get an MRI prior to discharge in order to formulate a plan for continuous churn buttermaker treatment of his shoulder. Thank you, Ike Davison M.D.
--- NOTE | 2017-02-24 12:48 | PN ---
Progress Note, Physician History of Present Illness: patient stable no new issues says he feels better movement of the shoulder improved - Current Medication List Current Medications: Active Medications Allopurinol (Zyloprim -) 100 mg PO DAILY [facility] Last Admin: 02/24/17 09:17 Dose: 100 mg Amlodipine Besylate (Norvasc -) 5 mg PO DAILY [facility] Last Admin: 02/24/17 09:17 Dose: 5 mg Docusate Sodium (Colace -) 100 mg PO BID [facility] Last Admin: 02/24/17 09:17 Dose: 100 mg Dextrose/Sodium Chloride (D5-1/2ns -) 1,000 mls @ 125 mls/hr IV ASDIR [facility] Last Admin: 02/23/17 21:22 Dose: 125 mls/hr Ceftriaxone Sodium 2 gm/ (Dextrose) 100 mls @ 200 mls/hr IVPB DAILY [facility] Last Admin: 02/24/17 09:17 Dose: 200 mls/hr Lactobacillus Acidophilus (Bacid -) 1 tab PO DAILY [facility] Last Admin: 02/24/17 09:17 Dose: 1 tab Methyl Salicylate (Hilario-Sheppard -) 1 applic TP BID [facility] Last Admin: 02/24/17 09:18 Dose: 1 applic Metoprolol Succinate (Toprol Xl -) 50 mg PO DAILY [facility] Last Admin: 02/24/17 09:17 Dose: 50 mg Ondansetron HCl (Zofran Injection) 4 mg IVPB Q6H PRN PRN Reason: NAUSEA Oxycodone HCl (Roxicodone -) 10 mg PO Q4H PRN PRN Reason: PAIN Last Admin: 02/24/17 05:45 Dose: 10 mg Polyethylene Glycol (Miralax (For Daily Use) -) 17 gm PO DAILY [facility] Last Admin: 02/24/17 09:18 Dose: Not Given Zolpidem Tartrate (Ambien -) 5 mg PO HS PRN PRN Reason: INSOMNIA Last Admin: 02/23/17 21:12 Dose: 5 mg - Objective Vital Signs: Vital Signs Temperature 99.2 F 02/24/17 06:36 Pulse Rate 97 H 02/24/17 06:36 Respiratory Rate 20 02/24/17 06:36 Blood Pressure 132/64 02/24/17 06:36 O2 Sat by Pulse Oximetry (%) 96 02/23/17 21:00 Constitutional: Yes: No Distress, Calm Cardiovascular: Yes: Regular Rate and Rhythm Respiratory: Yes: Regular, CTA Bilaterally Gastrointestinal: Yes: Normal Bowel Sounds, Soft Musculoskeletal: Yes: WNL Extremities: Yes: Other Neurological: Yes: Alert, Oriented Labs: CBC, BMP 02/24/17 06:30 Assessment/Plan Problem List - Problems (1) Cellulitis of multiple sites of upper limb and shoulder Code(s): L03.119 - CELLULITIS OF UNSPECIFIED PART OF LIMB (2) ALBER (acute kidney injury) Code(s): N17.9 - ACUTE KIDNEY FAILURE, UNSPECIFIED (3) CKD (chronic kidney disease) Code(s): N18.9 - CHRONIC KIDNEY DISEASE, UNSPECIFIED Qualifiers: Chronic kidney disease stage: stage 3 (moderate) Qualified Code(s): N18.3 - Chronic kidney disease, stage 3 (moderate) (4) Elevated liver enzymes Code(s): R74.8 - ABNORMAL LEVELS OF OTHER SERUM ENZYMES (5) CAD (coronary artery disease) Code(s): I25.10 - ATHSCL HEART DISEASE OF [place] CORONARY ARTERY W/O ANG PCTRS (6) Hypertension Code(s): I10 - ESSENTIAL (PRIMARY) HYPERTENSION (7) Gout Code(s): M10.9 - GOUT, UNSPECIFIED ortho note reviewed plan looks like patient can get mri continue abx rest as per ortho
--- NOTE | 2017-02-24 14:22 | PN ---
GI Progress Note Subjective: No acute events No abdominal pain Right shoulder pain somewhat improved - Objective Vital Signs: Vital Signs Temperature 99.2 F 02/24/17 06:36 Pulse Rate 97 H 02/24/17 06:36 Respiratory Rate 20 02/24/17 06:36 Blood Pressure 132/64 02/24/17 06:36 O2 Sat by Pulse Oximetry (%) 96 02/23/17 21:00 Constitutional: Calm Eyes: No: Sclera Icterus Cardiovascular: Yes: Regular Rate and Rhythm Respiratory: Yes: CTA Bilaterally Gastrointestinal Inspection: No: Distention ...Auscultate: Yes: Normoactive Bowel Sounds ...Palpate: Yes: Tenderness. No: Hepatomegaly, Splenomegaly ...Percussion: No: Tympanitic Edema: No Labs: CBC, BMP 02/24/17 06:30 Hepatic Panel Total Bilirubin 0.7 mg/dL (0.2-1.0) D 02/23/17 06:00 Direct Bilirubin < 0.2 mg/dL (0.0-0.2) 02/23/17 06:00 AST 65 U/L (15-37) H 02/23/17 06:00 ALT 90 U/L (12-78) H 02/23/17 06:00 Alkaline Phosphatase 355 U/L (45-117) H 02/23/17 06:00 Albumin 1.8 g/dl (3.4-5.0) L 02/23/17 06:00 Problem List - Problems (1) Elevated liver enzymes Assessment/Plan: Ordered LFT's for today If improving would monitor for now, if rising, consider MRI of abdomen/MRCP if this is feasible given cardiac stents or non contrast CT scan of the abdomen for further eval of liver parenchyma Code(s): R74.8 - ABNORMAL LEVELS OF OTHER SERUM ENZYMES
--- NOTE | 2017-02-24 15:02 | PN ---
Progress Note, Physician Chief Complaint: Mr Jones says his shoulder is feeling better today but still painful and can't move on its own. No cp, sob, n/v. - Current Medication List Current Medications: Active Medications Allopurinol (Zyloprim -) 100 mg PO DAILY [facility] Last Admin: 02/24/17 09:17 Dose: 100 mg Amlodipine Besylate (Norvasc -) 5 mg PO DAILY [facility] Last Admin: 02/24/17 09:17 Dose: 5 mg Docusate Sodium (Colace -) 100 mg PO BID [facility] Last Admin: 02/24/17 09:17 Dose: 100 mg Dextrose/Sodium Chloride (D5-1/2ns -) 1,000 mls @ 125 mls/hr IV ASDIR [facility] Last Admin: 02/23/17 21:22 Dose: 125 mls/hr Ceftriaxone Sodium 2 gm/ (Dextrose) 100 mls @ 200 mls/hr IVPB DAILY [facility] Last Admin: 02/24/17 09:17 Dose: 200 mls/hr Lactobacillus Acidophilus (Bacid -) 1 tab PO DAILY [facility] Last Admin: 02/24/17 09:17 Dose: 1 tab Methyl Salicylate (Hilario-Sheppard -) 1 applic TP BID [facility] Last Admin: 02/24/17 09:18 Dose: 1 applic Metoprolol Succinate (Toprol Xl -) 50 mg PO DAILY [facility] Last Admin: 02/24/17 09:17 Dose: 50 mg Ondansetron HCl (Zofran Injection) 4 mg IVPB Q6H PRN PRN Reason: NAUSEA Oxycodone HCl (Roxicodone -) 10 mg PO Q4H PRN PRN Reason: PAIN Last Admin: 02/24/17 05:45 Dose: 10 mg Polyethylene Glycol (Miralax (For Daily Use) -) 17 gm PO DAILY [facility] Last Admin: 02/24/17 09:18 Dose: Not Given Zolpidem Tartrate (Ambien -) 5 mg PO HS PRN PRN Reason: INSOMNIA Last Admin: 02/23/17 21:12 Dose: 5 mg - Objective Vital Signs: Vital Signs Temperature 37.2 C 02/24/17 14:00 Pulse Rate 100 H 02/24/17 14:00 Respiratory Rate 20 02/24/17 14:00 Blood Pressure 130/77 02/24/17 14:00 O2 Sat by Pulse Oximetry (%) 96 02/24/17 09:00 Constitutional: Yes: Well Nourished, No Distress, Calm Cardiovascular: Yes: Regular Rate and Rhythm. No: Gallop, Murmur, Rub Respiratory: Yes: Regular, CTA Bilaterally. No: Rales, Rhonchi, Wheezes Gastrointestinal: Yes: Normal Bowel Sounds, Soft. No: Distention, Tenderness Extremities: Yes: WNL Edema: No Labs: CBC, BMP 02/24/17 06:30 Problem List - Problems (1) Septic joint of right shoulder region Code(s): M00.9 - PYOGENIC ARTHRITIS, UNSPECIFIED (2) Cellulitis of multiple sites of upper limb and shoulder Code(s): L03.119 - CELLULITIS OF UNSPECIFIED PART OF LIMB (3) ALBER (acute kidney injury) Code(s): N17.9 - ACUTE KIDNEY FAILURE, UNSPECIFIED (4) CKD (chronic kidney disease) Code(s): N18.9 - CHRONIC KIDNEY DISEASE, UNSPECIFIED Qualifiers: Chronic kidney disease stage: stage 3 (moderate) Qualified Code(s): N18.3 - Chronic kidney disease, stage 3 (moderate) (5) Elevated liver enzymes Code(s): R74.8 - ABNORMAL LEVELS OF OTHER SERUM ENZYMES (6) CAD (coronary artery disease) Code(s): I25.10 - ATHSCL HEART DISEASE OF [place] CORONARY ARTERY W/O ANG PCTRS (7) Hypertension Code(s): I10 - ESSENTIAL (PRIMARY) HYPERTENSION (8) Gout Code(s): M10.9 - GOUT, UNSPECIFIED Assessment/Plan (1) Septic R shoulder joint with cellulitis Assessment/Plan: -appreciate ID and ortho recommendation -continue antibiotics, ? if needs exterminator helper IV antibiotics -also defer timing of MRI to ortho to evaluate shoulder Code(s): L03.119 - CELLULITIS OF UNSPECIFIED PART OF LIMB (2) ALBER (acute kidney injury) Assessment/Plan: -back at baseline Code(s): N17.9 - ACUTE KIDNEY FAILURE, UNSPECIFIED (3) CKD (chronic kidney disease) Assessment/Plan: -appreciate nephrology assistance Code(s): N18.9 - CHRONIC KIDNEY DISEASE, UNSPECIFIED Qualifiers: Chronic kidney disease stage: stage 3 (moderate) Qualified Code(s): N18.3 - Chronic kidney disease, stage 3 (moderate) (4) Elevated liver enzymes Assessment/Plan: -appreciate GI assistance -possible CT scan or MRI, will try to improve renal function Code(s): R74.8 - ABNORMAL LEVELS OF OTHER SERUM ENZYMES (5) CAD (coronary artery disease) Assessment/Plan: -continue home regimen Code(s): I25.10 - ATHSCL HEART DISEASE OF [place] CORONARY ARTERY W/O ANG PCTRS (6) Hypertension Assessment/Plan: -continue norvasc -increased toprol xl -lisinopril held secondary to renal function -well controlled on current regimen Code(s): I10 - ESSENTIAL (PRIMARY) HYPERTENSION (7) Gout Assessment/Plan: -continue allopurinol Code(s): M10.9 - GOUT, UNSPECIFIED (8) Hyperkalemia -BMP pending today -s/p kayexalate -monitor
--- NOTE | 2017-02-24 15:21 | PN ---
Progress Note (short form) - Note Progress Note: Renal follow up for ALBER vs CKD Pt seen and examined at the bedside awake and alert continues to have pain in shoulder no sob chest pain on IVF Vital Signs Temperature 99.3 F 02/24/17 14:59 Pulse Rate 100 H 02/24/17 14:59 Respiratory Rate 18 02/24/17 14:59 Blood Pressure 119/64 02/24/17 14:59 O2 Sat by Pulse Oximetry (%) 96 02/24/17 09:00 Intake & Output 02/21/17 02/22/17 02/23/17 02/24/17 23:59 23:59 23:59 23:59 Intake Total 1650 1520 2275 1300 Balance 1650 1520 2275 1300 Weight 196 lb Gen: NAD CVS: RRR Lungs: CTA Abd: soft NT/ND Ext: no edema CBC, BMP 02/24/17 06:30 BMP is pending Current Medications Allopurinol (Zyloprim -) 100 mg PO DAILY [facility] Last Admin: 02/24/17 09:17 Dose: 100 mg Amlodipine Besylate (Norvasc -) 5 mg PO DAILY [facility] Last Admin: 02/24/17 09:17 Dose: 5 mg Docusate Sodium (Colace -) 100 mg PO BID [facility] Last Admin: 02/24/17 09:17 Dose: 100 mg Dextrose/Sodium Chloride (D5-1/2ns -) 1,000 mls @ 125 mls/hr IV ASDIR [facility] Last Admin: 02/23/17 21:22 Dose: 125 mls/hr Ceftriaxone Sodium 2 gm/ (Dextrose) 100 mls @ 200 mls/hr IVPB DAILY [facility] Last Admin: 02/24/17 09:17 Dose: 200 mls/hr Lactobacillus Acidophilus (Bacid -) 1 tab PO DAILY [facility] Last Admin: 02/24/17 09:17 Dose: 1 tab Methyl Salicylate (Hilario-Sheppard -) 1 applic TP BID [facility] Last Admin: 02/24/17 09:18 Dose: 1 applic Metoprolol Succinate (Toprol Xl -) 50 mg PO DAILY [facility] Last Admin: 02/24/17 09:17 Dose: 50 mg Ondansetron HCl (Zofran Injection) 4 mg IVPB Q6H PRN PRN Reason: NAUSEA Oxycodone HCl (Roxicodone -) 10 mg PO Q4H PRN PRN Reason: PAIN Last Admin: 02/24/17 05:45 Dose: 10 mg Polyethylene Glycol (Miralax (For Daily Use) -) 17 gm PO DAILY [facility] Last Admin: 02/24/17 09:18 Dose: Not Given Zolpidem Tartrate (Ambien -) 5 mg PO HS PRN PRN Reason: INSOMNIA Last Admin: 02/23/17 21:12 Dose: 5 mg A/P 71 year old gentleman with PMhx of HTN, Gout, CAD s/p PCI and stenting, CKD ( unknown baseline Cr), 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 #Acute on Chronic Renal Insufficiency Related to hemodynamic injury/Volume contraction Baseline Cr is 1.74 from 11/19/2016 Renal function improved to bsaeline as of yesterday, todays BMP is pending Can D/c IVF as further hydration unlikley to improve BUN/Cr Pt is off ACEi for now, can restart if BUN/Cr remains stable Check Renal US to access kidney size and structure avoid nsaids for pain control dose all meds for CrCl less then 40 pt is at higher risk of JUANY if given CT contrast (calculated risk is 14% (rise in serum Cr > 25%,a and risk of dialysis is 0.12%) - this risk was discussed with the patient given GFR > 30 pt is ok to get MRI with Arvind if needed #Joint pain/Joint effusion/Septic Joint Abx as per ID Ortho following #Abnormal LFT's Us showed no pathology #Hypertension BP is at goal on Metoprolol and amlodpine Edward Haddad DO Problem List - Problems (1) ALBER (acute kidney injury) Code(s): N17.9 - ACUTE KIDNEY FAILURE, UNSPECIFIED (2) CKD (chronic kidney disease) Code(s): N18.9 - CHRONIC KIDNEY DISEASE, UNSPECIFIED Qualifiers: Chronic kidney disease stage: stage 3 (moderate) Qualified Code(s): N18.3 - Chronic kidney disease, stage 3 (moderate) (3) Elevated liver enzymes Code(s): R74.8 - ABNORMAL LEVELS OF OTHER SERUM ENZYMES (4) Septic joint of right shoulder region Code(s): M00.9 - PYOGENIC ARTHRITIS, UNSPECIFIED (5) Abdominal pain Code(s): R10.9 - UNSPECIFIED ABDOMINAL PAIN (6) Azotemia Code(s): R79.89 - OTHER SPECIFIED ABNORMAL FINDINGS OF BLOOD CHEMISTRY
[2017-02-24 15:47] LABS: ANION GAP 12 (8-16); CALCIUM 9.1 mg/dL (8.5-10.1); CO2 25 mmol/L (21-32); CREATININE 1.5 mg/dL (0.7-1.3); GLUCOSE,RANDOM 99 mg/dL (74-106); MAGNESIUM 2.4 mg/dL (1.8-2.4); PHOSPHOROUS 4.1 mg/dL (2.5-4.9)
[2017-02-24 16:06] LABS: ALBUMIN 2.1 g/dl (3.4-5.0); ALK PHOS 358 U/L (45-117)
[2017-02-24 16:08] LABS: BILIRUBIN,DIRECT 0.2 mg/dL (0.0-0.2); BILIRUBIN,TOTAL 0.4 mg/dL (0.2-1.0); SGOT/AST 62 U/L (15-37); SGPT/ALT 91 U/L (12-78); TOT PROT 6.4 g/dl (6.4-8.2)
[2017-02-25] MEDS: DEXTROSE 5%-0.45% SALINE 1,000 ML IV SCH ×3 (00:30→09:48)
[2017-02-25] MEDS: oxyCODONE HCL 5 MG TABLET PO PRN (04:54)
[2017-02-25 07:47] LABS: BASOPHIL 0.7 % (0-2.0); EOSINOPHIL 0.4 % (0-4.5); MCH 28.2 pg (25.7-33.7); MCHC 32.7 g/dl (32.0-35.9); MEAN CELL VOLUME 86.2 fl (80-96); MEAN PLT VOLUME 8.2 fl (7.5-11.1); PLATELET COUNT 909 K/MM3 (134-434); RDW 15.3 % (11.9-15.9); WHITE BLOOD COUNT 6.8 K/mm3 (4.0-10.0)
[2017-02-25 08:25] LABS: ALBUMIN 1.8 g/dl (3.4-5.0); ALK PHOS 250 U/L (45-117); ANION GAP 11 (8-16); BILIRUBIN,TOTAL 0.3 mg/dL (0.2-1.0); CALCIUM 8.3 mg/dL (8.5-10.1); CO2 25 mmol/L (21-32); CREATININE 1.4 mg/dL (0.7-1.3); GLUCOSE,RANDOM 104 mg/dL (74-106); MAGNESIUM 2.3 mg/dL (1.8-2.4); PHOSPHOROUS 3.4 mg/dL (2.5-4.9); SGOT/AST 32 U/L (15-37); SGPT/ALT 60 U/L (12-78); TOT PROT 5.4 g/dl (6.4-8.2)
[2017-02-25] MEDS ORDERED: DEXTROSE 5%-WATER 100 ML IVPB ONE (09:31)
[2017-02-25] MEDS: CEFTRIAXONE 2 GM in DEXTROSE 5%-WATER 100 ML IVPB SCH (09:38)
[2017-02-25] MEDS: DOCUSATE SODIUM 100 MG CAPSULE (FP) PO SCH ×2 (09:39→21:01)
[2017-02-25] MEDS: amLODIPine BESYLATE 5 MG TABLET (FP) PO SCH (09:39)
[2017-02-25] MEDS: ALLOPURINOL 100 MG TABLET (FP) PO SCH (09:39)
[2017-02-25] MEDS: LACTOBACILLUS ACIDOPHILUS 1 EACH TAB (FP) PO SCH (09:39)
[2017-02-25] MEDS: METOPROLOL SUCCINATE 50 MG TAB.SR.24H (FP) PO SCH (09:40)
[2017-02-25] MEDS: POLYETHYLENE GLYCOL 3350 119 GM BTL PO SCH (09:40)
[2017-02-25] MEDS: METHYL SALICYLATE/MENTHOL OINT 30 GM TUBE TP SCH ×2 (09:41→22:00)
--- NOTE | 2017-02-25 10:31 | PN ---
Progress Note (short form) - Note Progress Note: LFT's improving Continue to monitor Avoid hepatotoxic agents Problem List - Problems (1) Elevated liver enzymes Code(s): R74.8 - ABNORMAL LEVELS OF OTHER SERUM ENZYMES
--- NOTE | 2017-02-25 12:29 | PN ---
Progress Note, Physician History of Present Illness: patient stable no new issues - Current Medication List Current Medications: Active Medications Allopurinol (Zyloprim -) 100 mg PO DAILY [facility] Last Admin: 02/25/17 09:39 Dose: 100 mg Amlodipine Besylate (Norvasc -) 5 mg PO DAILY [facility] Last Admin: 02/25/17 09:39 Dose: 5 mg Docusate Sodium (Colace -) 100 mg PO BID [facility] Last Admin: 02/25/17 09:39 Dose: 100 mg Enoxaparin Sodium (Lovenox -) 40 mg SQ DAILY [facility] Dextrose/Sodium Chloride (D5-1/2ns -) 1,000 mls @ 125 mls/hr IV ASDIR [facility] Last Admin: 02/25/17 09:48 Dose: 125 mls/hr Ceftriaxone Sodium 2 gm/ (Dextrose) 100 mls @ 200 mls/hr IVPB DAILY [facility] Last Admin: 02/25/17 09:38 Dose: 200 mls/hr Lactobacillus Acidophilus (Bacid -) 1 tab PO DAILY [facility] Last Admin: 02/25/17 09:39 Dose: 1 tab Methyl Salicylate (Hilario-Sheppard -) 1 applic TP BID [facility] Last Admin: 02/25/17 09:41 Dose: 1 applic Metoprolol Succinate (Toprol Xl -) 50 mg PO DAILY [facility] Last Admin: 02/25/17 09:40 Dose: 50 mg Ondansetron HCl (Zofran Injection) 4 mg IVPB Q6H PRN PRN Reason: NAUSEA Oxycodone HCl (Roxicodone -) 10 mg PO Q4H PRN PRN Reason: PAIN Last Admin: 02/25/17 04:54 Dose: 10 mg Polyethylene Glycol (Miralax (For Daily Use) -) 17 gm PO DAILY [facility] Last Admin: 02/25/17 09:40 Dose: Not Given Zolpidem Tartrate (Ambien -) 5 mg PO HS PRN PRN Reason: INSOMNIA Last Admin: 02/23/17 21:12 Dose: 5 mg - Objective Vital Signs: Vital Signs Temperature 98.8 F 02/25/17 06:29 Pulse Rate 94 H 02/25/17 06:29 Respiratory Rate 20 02/25/17 06:29 Blood Pressure 123/58 02/25/17 06:29 O2 Sat by Pulse Oximetry (%) 96 02/24/17 21:00 Constitutional: Yes: No Distress, Calm Cardiovascular: Yes: Regular Rate and Rhythm Respiratory: Yes: Regular, CTA Bilaterally Gastrointestinal: Yes: Normal Bowel Sounds, Soft Musculoskeletal: Yes: WNL Extremities: Yes: Other (minimal movement of the rt shoulder) Neurological: Yes: Alert, Oriented Psychiatric: Yes: Alert, Oriented Labs: CBC, BMP 02/25/17 06:00 02/25/17 06:00 Assessment/Plan Problem List - Problems (1) Cellulitis of multiple sites of upper limb and shoulder Code(s): L03.119 - CELLULITIS OF UNSPECIFIED PART OF LIMB (2) ALBER (acute kidney injury) Code(s): N17.9 - ACUTE KIDNEY FAILURE, UNSPECIFIED (3) CKD (chronic kidney disease) Code(s): N18.9 - CHRONIC KIDNEY DISEASE, UNSPECIFIED Qualifiers: Chronic kidney disease stage: stage 3 (moderate) Qualified Code(s): N18.3 - Chronic kidney disease, stage 3 (moderate) (4) Elevated liver enzymes Code(s): R74.8 - ABNORMAL LEVELS OF OTHER SERUM ENZYMES (5) CAD (coronary artery disease) Code(s): I25.10 - ATHSCL HEART DISEASE OF [place] CORONARY ARTERY W/O ANG PCTRS (6) Hypertension Code(s): I10 - ESSENTIAL (PRIMARY) HYPERTENSION (7) Gout Code(s): M10.9 - GOUT, UNSPECIFIED ortho note reviewed plan patient to get mri tomorrow continue abx depending on mri final plan rest as per otho/primary
--- NOTE | 2017-02-25 13:31 | PN ---
Progress Note, Physician Chief Complaint: Mr Jones complains mainly of the food in the hospital. Shoulder pain is unchanged. No cp, sob, n/v. - Current Medication List Current Medications: Active Medications Allopurinol (Zyloprim -) 100 mg PO DAILY [facility] Last Admin: 02/25/17 09:39 Dose: 100 mg Amlodipine Besylate (Norvasc -) 5 mg PO DAILY [facility] Last Admin: 02/25/17 09:39 Dose: 5 mg Docusate Sodium (Colace -) 100 mg PO BID [facility] Last Admin: 02/25/17 09:39 Dose: 100 mg Enoxaparin Sodium (Lovenox -) 40 mg SQ DAILY [facility] Dextrose/Sodium Chloride (D5-1/2ns -) 1,000 mls @ 125 mls/hr IV ASDIR [facility] Last Admin: 02/25/17 09:48 Dose: 125 mls/hr Ceftriaxone Sodium 2 gm/ (Dextrose) 100 mls @ 200 mls/hr IVPB DAILY [facility] Last Admin: 02/25/17 09:38 Dose: 200 mls/hr Lactobacillus Acidophilus (Bacid -) 1 tab PO DAILY [facility] Last Admin: 02/25/17 09:39 Dose: 1 tab Methyl Salicylate (Hilario-Sheppard -) 1 applic TP BID [facility] Last Admin: 02/25/17 09:41 Dose: 1 applic Metoprolol Succinate (Toprol Xl -) 50 mg PO DAILY [facility] Last Admin: 02/25/17 09:40 Dose: 50 mg Ondansetron HCl (Zofran Injection) 4 mg IVPB Q6H PRN PRN Reason: NAUSEA Oxycodone HCl (Roxicodone -) 10 mg PO Q4H PRN PRN Reason: PAIN Last Admin: 02/25/17 04:54 Dose: 10 mg Polyethylene Glycol (Miralax (For Daily Use) -) 17 gm PO DAILY [facility] Last Admin: 02/25/17 09:40 Dose: Not Given Zolpidem Tartrate (Ambien -) 5 mg PO HS PRN PRN Reason: INSOMNIA Last Admin: 02/23/17 21:12 Dose: 5 mg - Objective Vital Signs: Vital Signs Temperature 36.7 C 02/25/17 09:00 Pulse Rate 97 H 02/25/17 09:00 Respiratory Rate 16 02/25/17 09:00 Blood Pressure 125/58 02/25/17 09:00 O2 Sat by Pulse Oximetry (%) 96 02/24/17 21:00 Constitutional: Yes: Well Nourished, No Distress Cardiovascular: Yes: Regular Rate and Rhythm. No: Gallop, Murmur, Rub Respiratory: Yes: Regular, CTA Bilaterally. No: Rales, Rhonchi, Wheezes Gastrointestinal: Yes: Normal Bowel Sounds, Soft. No: Distention, Tenderness Extremities: Yes: WNL Edema: No Labs: CBC, BMP 02/25/17 06:00 02/25/17 06:00 Problem List - Problems (1) Septic joint of right shoulder region Code(s): M00.9 - PYOGENIC ARTHRITIS, UNSPECIFIED (2) Cellulitis of multiple sites of upper limb and shoulder Code(s): L03.119 - CELLULITIS OF UNSPECIFIED PART OF LIMB (3) ALBER (acute kidney injury) Code(s): N17.9 - ACUTE KIDNEY FAILURE, UNSPECIFIED (4) CKD (chronic kidney disease) Code(s): N18.9 - CHRONIC KIDNEY DISEASE, UNSPECIFIED Qualifiers: Chronic kidney disease stage: stage 3 (moderate) Qualified Code(s): N18.3 - Chronic kidney disease, stage 3 (moderate) (5) Elevated liver enzymes Code(s): R74.8 - ABNORMAL LEVELS OF OTHER SERUM ENZYMES (6) CAD (coronary artery disease) Code(s): I25.10 - ATHSCL HEART DISEASE OF [place] CORONARY ARTERY W/O ANG PCTRS (7) Hypertension Code(s): I10 - ESSENTIAL (PRIMARY) HYPERTENSION (8) Gout Code(s): M10.9 - GOUT, UNSPECIFIED Assessment/Plan (1) Septic R shoulder joint with cellulitis Assessment/Plan: -appreciate ID and ortho recommendation -continue antibiotics, will need PICC line for outpatient IV antibiotics -also defer timing of MRI to ortho to evaluate shoulder Code(s): L03.119 - CELLULITIS OF UNSPECIFIED PART OF LIMB (2) ALBER (acute kidney injury) Assessment/Plan: -back at baseline Code(s): N17.9 - ACUTE KIDNEY FAILURE, UNSPECIFIED (3) CKD (chronic kidney disease) Assessment/Plan: -appreciate nephrology assistance Code(s): N18.9 - CHRONIC KIDNEY DISEASE, UNSPECIFIED Qualifiers: Chronic kidney disease stage: stage 3 (moderate) Qualified Code(s): N18.3 - Chronic kidney disease, stage 3 (moderate) (4) Elevated liver enzymes Assessment/Plan: -appreciate GI assistance -improving Code(s): R74.8 - ABNORMAL LEVELS OF OTHER SERUM ENZYMES (5) CAD (coronary artery disease) Assessment/Plan: -continue home regimen Code(s): I25.10 - ATHSCL HEART DISEASE OF [place] CORONARY ARTERY W/O ANG PCTRS (6) Hypertension Assessment/Plan: -continue norvasc -increased toprol xl -lisinopril held secondary to renal function -well controlled on current regimen Code(s): I10 - ESSENTIAL (PRIMARY) HYPERTENSION (7) Gout Assessment/Plan: -continue allopurinol Code(s): M10.9 - GOUT, UNSPECIFIED (8) Hyperkalemia -resolved (9) Elevated platelets -suspect most likely to sepsis -however will consult hematology for further evaluation -lovenox for DVT PPx
[2017-02-25] MEDS: ENOXAPARIN NA (PORCINE) 40 MG/0.4 ML DISP.SYRIN SQ SCH (13:45)
--- NOTE | 2017-02-25 17:28 | PN ---
Progress Note (short form) - Note Progress Note: Renal follow up for ALBER vs CKD Pt seen and examined at the bedside continues to have pain and limited mobility in the shoulder denies any sob, chest pain, abd pain, N/V good urine output Vital Signs Temperature 99.2 F 02/25/17 15:49 Pulse Rate 96 H 02/25/17 15:49 Respiratory Rate 18 02/25/17 15:49 Blood Pressure 122/59 02/25/17 15:49 O2 Sat by Pulse Oximetry (%) 97 02/25/17 09:00 Intake & Output 02/22/17 02/23/17 02/24/17 02/25/17 23:59 23:59 23:59 23:59 Intake Total 1520 2275 2800 1850 Balance 1520 2275 2800 1850 Weight 196 lb Gen: NAD CVS: RRR Lungs: CTA Abd: soft NT/ND Ext: no edema CBC, BMP 02/25/17 06:00 02/25/17 06:00 Current Medications Allopurinol (Zyloprim -) 100 mg PO DAILY [facility] Last Admin: 02/25/17 09:39 Dose: 100 mg Amlodipine Besylate (Norvasc -) 5 mg PO DAILY [facility] Last Admin: 02/25/17 09:39 Dose: 5 mg Docusate Sodium (Colace -) 100 mg PO BID [facility] Last Admin: 02/25/17 09:39 Dose: 100 mg Enoxaparin Sodium (Lovenox -) 40 mg SQ DAILY [facility] Last Admin: 02/25/17 13:45 Dose: 40 mg Dextrose/Sodium Chloride (D5-1/2ns -) 1,000 mls @ 125 mls/hr IV ASDIR [facility] Last Admin: 02/25/17 09:48 Dose: 125 mls/hr Ceftriaxone Sodium 2 gm/ (Dextrose) 100 mls @ 200 mls/hr IVPB DAILY [facility] Last Admin: 02/25/17 09:38 Dose: 200 mls/hr Lactobacillus Acidophilus (Bacid -) 1 tab PO DAILY [facility] Last Admin: 02/25/17 09:39 Dose: 1 tab Methyl Salicylate (Hilario-Sheppard -) 1 applic TP BID [facility] Last Admin: 02/25/17 09:41 Dose: 1 applic Metoprolol Succinate (Toprol Xl -) 50 mg PO DAILY [facility] Last Admin: 02/25/17 09:40 Dose: 50 mg Ondansetron HCl (Zofran Injection) 4 mg IVPB Q6H PRN PRN Reason: NAUSEA Oxycodone HCl (Roxicodone -) 10 mg PO Q4H PRN PRN Reason: PAIN Last Admin: 02/25/17 04:54 Dose: 10 mg Polyethylene Glycol (Miralax (For Daily Use) -) 17 gm PO DAILY [facility] Last Admin: 02/25/17 09:40 Dose: Not Given Zolpidem Tartrate (Ambien -) 5 mg PO HS PRN PRN Reason: INSOMNIA Last Admin: 02/23/17 21:12 Dose: 5 mg A/P 71 year old gentleman with PMhx of HTN, Gout, CAD s/p PCI and stenting, CKD ( unknown baseline Cr), 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 #Acute on Chronic Renal Insufficiency Related to hemodynamic injury/Volume contraction Baseline Cr is 1.74 from 11/19/2016 Renal function is improved and below outpatient baseline can d/c IVF today Tend BUN/Cr with IV contrast Pt remains a mild risk for JUANY if given IV contrast eGFR> 30 so can have MRI with [facility] if needed Trend BUN/Cr and electrolytes #Joint pain/Joint effusion/Septic Joint Abx as per ID Ortho following MRI pending #Abnormal LFT's Us showed no pathology LFT's improving GI following #Hypertension BP is at goal on Metoprolol and amlodpine Edward Haddad DO Problem List - Problems (1) ALBER (acute kidney injury) Code(s): N17.9 - ACUTE KIDNEY FAILURE, UNSPECIFIED (2) CKD (chronic kidney disease) Code(s): N18.9 - CHRONIC KIDNEY DISEASE, UNSPECIFIED Qualifiers: Chronic kidney disease stage: stage 3 (moderate) Qualified Code(s): N18.3 - Chronic kidney disease, stage 3 (moderate) (3) Elevated liver enzymes Code(s): R74.8 - ABNORMAL LEVELS OF OTHER SERUM ENZYMES (4) Septic joint of right shoulder region Code(s): M00.9 - PYOGENIC ARTHRITIS, UNSPECIFIED (5) Abdominal pain Code(s): R10.9 - UNSPECIFIED ABDOMINAL PAIN (6) Azotemia Code(s): R79.89 - OTHER SPECIFIED ABNORMAL FINDINGS OF BLOOD CHEMISTRY
[2017-02-25] MEDS: ZOLPIDEM TARTRATE 5 MG TABLET PO PRN (21:01)
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
[2017-02-26] MEDS: oxyCODONE HCL 5 MG TABLET PO PRN ×3 (00:31→16:12)
[2017-02-26] MEDS: DEXTROSE 5%-0.45% SALINE 1,000 ML IV SCH (07:37)
[2017-02-26 08:00] LABS: BASOPHIL 1.2 % (0-2.0); EOSINOPHIL 0.4 % (0-4.5); MCH 28.2 pg (25.7-33.7); MCHC 32.6 g/dl (32.0-35.9); MEAN CELL VOLUME 86.3 fl (80-96); MEAN PLT VOLUME 8.3 fl (7.5-11.1); NEUTROPHILS 68.7 % (42.8-82.8); PLATELET COUNT 1028 K/MM3 (134-434); RDW 15.3 % (11.9-15.9); WHITE BLOOD COUNT 6.2 K/mm3 (4.0-10.0)
[2017-02-26 08:24] LABS: ALBUMIN 1.8 g/dl (3.4-5.0); ALK PHOS 244 U/L (45-117); ANION GAP 12 (8-16); BILIRUBIN,TOTAL 0.4 mg/dL (0.2-1.0); CALCIUM 9.2 mg/dL (8.5-10.1); CO2 24 mmol/L (21-32); CREATININE 1.2 mg/dL (0.7-1.3); GLUCOSE,RANDOM 86 mg/dL (74-106); MAGNESIUM 2.3 mg/dL (1.8-2.4); PHOSPHOROUS 3.5 mg/dL (2.5-4.9); SGOT/AST 30 U/L (15-37); SGPT/ALT 50 U/L (12-78); TOT PROT 5.9 g/dl (6.4-8.2)
[2017-02-26] MEDS ORDERED: PT OWN MED DRAWER 7, Y5N ONE (09:24)
[2017-02-26] MEDS ORDERED: DEXTROSE 5%-WATER 100 ML IVPB ONE (09:24)
[2017-02-26] MEDS: DOCUSATE SODIUM 100 MG CAPSULE (FP) PO SCH ×2 (09:30→21:10)
[2017-02-26] MEDS: METOPROLOL SUCCINATE 50 MG TAB.SR.24H (FP) PO SCH (09:33)
[2017-02-26] MEDS: ALLOPURINOL 100 MG TABLET (FP) PO SCH (09:33)
[2017-02-26] MEDS: amLODIPine BESYLATE 5 MG TABLET (FP) PO SCH (09:33)
[2017-02-26] MEDS: LACTOBACILLUS ACIDOPHILUS 1 EACH TAB (FP) PO SCH (09:33)
[2017-02-26] MEDS: ENOXAPARIN NA (PORCINE) 40 MG/0.4 ML DISP.SYRIN SQ SCH (09:34)
[2017-02-26] MEDS: POLYETHYLENE GLYCOL 3350 119 GM BTL PO SCH ×2 (09:34→16:11)
[2017-02-26] MEDS: METHYL SALICYLATE/MENTHOL OINT 30 GM TUBE TP SCH ×2 (09:35→21:11)
[2017-02-26] MEDS: CEFTRIAXONE 2 GM in DEXTROSE 5%-WATER 100 ML IVPB SCH (09:35)
--- NOTE | 2017-02-26 12:47 | PN ---
Progress Note, Physician History of Present Illness: patient stable no new issues patient for mri today - Current Medication List Current Medications: Active Medications Allopurinol (Zyloprim -) 100 mg PO DAILY [facility] Last Admin: 02/26/17 09:33 Dose: 100 mg Amlodipine Besylate (Norvasc -) 5 mg PO DAILY [facility] Last Admin: 02/26/17 09:33 Dose: 5 mg Docusate Sodium (Colace -) 100 mg PO BID [facility] Last Admin: 02/26/17 09:30 Dose: 100 mg Enoxaparin Sodium (Lovenox -) 40 mg SQ DAILY [facility] Last Admin: 02/26/17 09:34 Dose: 40 mg Ceftriaxone Sodium 2 gm/ (Dextrose) 100 mls @ 200 mls/hr IVPB DAILY [facility] Last Admin: 02/26/17 09:35 Dose: 200 mls/hr Lactobacillus Acidophilus (Bacid -) 1 tab PO DAILY [facility] Last Admin: 02/26/17 09:33 Dose: 1 tab Methyl Salicylate (Hilario-Sheppard -) 1 applic TP BID [facility] Last Admin: 02/26/17 09:35 Dose: 1 applic Metoprolol Succinate (Toprol Xl -) 50 mg PO DAILY [facility] Last Admin: 02/26/17 09:33 Dose: 50 mg Ondansetron HCl (Zofran Injection) 4 mg IVPB Q6H PRN PRN Reason: NAUSEA Oxycodone HCl (Roxicodone -) 10 mg PO Q4H PRN PRN Reason: PAIN Last Admin: 02/26/17 10:19 Dose: 10 mg Polyethylene Glycol (Miralax (For Daily Use) -) 17 gm PO DAILY [facility] Last Admin: 02/26/17 09:34 Dose: Not Given Zolpidem Tartrate (Ambien -) 5 mg PO HS PRN PRN Reason: INSOMNIA Last Admin: 02/25/17 21:01 Dose: 5 mg - Objective Vital Signs: Vital Signs Temperature 99.4 F 02/26/17 06:45 Pulse Rate 92 H 02/26/17 06:45 Respiratory Rate 20 02/26/17 06:45 Blood Pressure 118/62 02/26/17 06:45 O2 Sat by Pulse Oximetry (%) 97 02/25/17 21:00 Constitutional: Yes: No Distress, Calm Cardiovascular: Yes: Regular Rate and Rhythm Respiratory: Yes: Regular, CTA Bilaterally Gastrointestinal: Yes: Normal Bowel Sounds, Soft Musculoskeletal: Yes: WNL Extremities: Yes: Other (movement of the hand issue) Neurological: Yes: Alert, Oriented Labs: CBC, BMP 02/26/17 06:00 02/26/17 06:00 Assessment/Plan Problem List - Problems (1) Cellulitis of multiple sites of upper limb and shoulder Code(s): L03.119 - CELLULITIS OF UNSPECIFIED PART OF LIMB (2) ALBER (acute kidney injury) Code(s): N17.9 - ACUTE KIDNEY FAILURE, UNSPECIFIED (3) CKD (chronic kidney disease) Code(s): N18.9 - CHRONIC KIDNEY DISEASE, UNSPECIFIED Qualifiers: Chronic kidney disease stage: stage 3 (moderate) Qualified Code(s): N18.3 - Chronic kidney disease, stage 3 (moderate) (4) Elevated liver enzymes Code(s): R74.8 - ABNORMAL LEVELS OF OTHER SERUM ENZYMES (5) CAD (coronary artery disease) Code(s): I25.10 - ATHSCL HEART DISEASE OF [place] CORONARY ARTERY W/O ANG PCTRS (6) Hypertension Code(s): I10 - ESSENTIAL (PRIMARY) HYPERTENSION (7) Gout Code(s): M10.9 - GOUT, UNSPECIFIED ortho note reviewed plan continue abx await for mri
--- NOTE | 2017-02-26 13:18 | PN ---
Progress Note, Physician Chief Complaint: Mr Jones shoulder pain unchanged but otherwise without physical complaint. No cp , sob, n/v. - Current Medication List Current Medications: Active Medications Allopurinol (Zyloprim -) 100 mg PO DAILY [facility] Last Admin: 02/26/17 09:33 Dose: 100 mg Amlodipine Besylate (Norvasc -) 5 mg PO DAILY [facility] Last Admin: 02/26/17 09:33 Dose: 5 mg Docusate Sodium (Colace -) 100 mg PO BID [facility] Last Admin: 02/26/17 09:30 Dose: 100 mg Enoxaparin Sodium (Lovenox -) 40 mg SQ DAILY [facility] Last Admin: 02/26/17 09:34 Dose: 40 mg Ceftriaxone Sodium 2 gm/ (Dextrose) 100 mls @ 200 mls/hr IVPB DAILY [facility] Last Admin: 02/26/17 09:35 Dose: 200 mls/hr Lactobacillus Acidophilus (Bacid -) 1 tab PO DAILY [facility] Last Admin: 02/26/17 09:33 Dose: 1 tab Methyl Salicylate (Hilario-Sheppard -) 1 applic TP BID [facility] Last Admin: 02/26/17 09:35 Dose: 1 applic Metoprolol Succinate (Toprol Xl -) 50 mg PO DAILY [facility] Last Admin: 02/26/17 09:33 Dose: 50 mg Ondansetron HCl (Zofran Injection) 4 mg IVPB Q6H PRN PRN Reason: NAUSEA Oxycodone HCl (Roxicodone -) 10 mg PO Q4H PRN PRN Reason: PAIN Last Admin: 02/26/17 10:19 Dose: 10 mg Polyethylene Glycol (Miralax (For Daily Use) -) 17 gm PO DAILY [facility] Last Admin: 02/26/17 09:34 Dose: Not Given Zolpidem Tartrate (Ambien -) 5 mg PO HS PRN PRN Reason: INSOMNIA Last Admin: 02/25/17 21:01 Dose: 5 mg - Objective Vital Signs: Vital Signs Temperature 37.4 C 02/26/17 06:45 Pulse Rate 92 H 02/26/17 06:45 Respiratory Rate 20 02/26/17 06:45 Blood Pressure 118/62 02/26/17 06:45 O2 Sat by Pulse Oximetry (%) 97 02/25/17 21:00 Constitutional: Yes: Well Nourished, No Distress, Calm Cardiovascular: Yes: Regular Rate and Rhythm. No: Gallop, Murmur, Rub Respiratory: Yes: Regular, CTA Bilaterally. No: Rales, Rhonchi, Wheezes Gastrointestinal: Yes: Normal Bowel Sounds, Soft. No: Distention, Tenderness Extremities: Yes: WNL Edema: No Labs: CBC, BMP 02/26/17 06:00 02/26/17 06:00 Problem List - Problems (1) Septic joint of right shoulder region Code(s): M00.9 - PYOGENIC ARTHRITIS, UNSPECIFIED (2) Cellulitis of multiple sites of upper limb and shoulder Code(s): L03.119 - CELLULITIS OF UNSPECIFIED PART OF LIMB (3) ALBER (acute kidney injury) Code(s): N17.9 - ACUTE KIDNEY FAILURE, UNSPECIFIED (4) CKD (chronic kidney disease) Code(s): N18.9 - CHRONIC KIDNEY DISEASE, UNSPECIFIED Qualifiers: Chronic kidney disease stage: stage 3 (moderate) Qualified Code(s): N18.3 - Chronic kidney disease, stage 3 (moderate) (5) Elevated liver enzymes Code(s): R74.8 - ABNORMAL LEVELS OF OTHER SERUM ENZYMES (6) CAD (coronary artery disease) Code(s): I25.10 - ATHSCL HEART DISEASE OF [place] CORONARY ARTERY W/O ANG PCTRS (7) Hypertension Code(s): I10 - ESSENTIAL (PRIMARY) HYPERTENSION (8) Gout Code(s): M10.9 - GOUT, UNSPECIFIED Assessment/Plan (1) Septic R shoulder joint with cellulitis Assessment/Plan: -appreciate ID and ortho recommendation -continue antibiotics, will need PICC line for outpatient IV antibiotics -MRI ordered -ortho to follow up and evaluate for possible drainage Code(s): L03.119 - CELLULITIS OF UNSPECIFIED PART OF LIMB (2) ALBER (acute kidney injury) Assessment/Plan: -back at baseline Code(s): N17.9 - ACUTE KIDNEY FAILURE, UNSPECIFIED (3) CKD (chronic kidney disease) Assessment/Plan: -appreciate nephrology assistance Code(s): N18.9 - CHRONIC KIDNEY DISEASE, UNSPECIFIED Qualifiers: Chronic kidney disease stage: stage 3 (moderate) Qualified Code(s): N18.3 - Chronic kidney disease, stage 3 (moderate) (4) Elevated liver enzymes Assessment/Plan: -appreciate GI assistance -improving Code(s): R74.8 - ABNORMAL LEVELS OF OTHER SERUM ENZYMES (5) CAD (coronary artery disease) Assessment/Plan: -continue home regimen Code(s): I25.10 - ATHSCL HEART DISEASE OF [place] CORONARY ARTERY W/O ANG PCTRS (6) Hypertension Assessment/Plan: -continue norvasc -increased toprol xl -lisinopril held secondary to renal function -well controlled on current regimen Code(s): I10 - ESSENTIAL (PRIMARY) HYPERTENSION (7) Gout Assessment/Plan: -continue allopurinol Code(s): M10.9 - GOUT, UNSPECIFIED (8) Hyperkalemia -resolved (9) Elevated platelets -continues to increase -hematology following
[2017-02-26] MEDS: ZOLPIDEM TARTRATE 5 MG TABLET PO PRN (22:12)
[2017-02-27] MEDS: oxyCODONE HCL 5 MG TABLET PO PRN ×3 (01:35→19:52)
[2017-02-27 07:42] LABS: BASOPHIL 1.3 % (0-2.0); EOSINOPHIL 0.4 % (0-4.5); MCH 28.6 pg (25.7-33.7); MCHC 33.4 g/dl (32.0-35.9); MEAN CELL VOLUME 85.9 fl (80-96); MEAN PLT VOLUME 7.9 fl (7.5-11.1); RDW 15.2 % (11.9-15.9); WHITE BLOOD COUNT 6.4 K/mm3 (4.0-10.0)
[2017-02-27 08:12] LABS: PLATELET COUNT 1135 K/MM3 (134-434)
[2017-02-27 08:22] LABS: ANION GAP 7 (8-16); CALCIUM 9.1 mg/dL (8.5-10.1); CO2 29 mmol/L (21-32); CREATININE 1.3 mg/dL (0.7-1.3); GLUCOSE,RANDOM 87 mg/dL (74-106); MAGNESIUM 2.3 mg/dL (1.8-2.4); PHOSPHOROUS 3.9 mg/dL (2.5-4.9)
[2017-02-27] MEDS ORDERED: DEXTROSE 5%-WATER 100 ML IVPB ONE (08:58)
[2017-02-27] MEDS: CEFTRIAXONE 2 GM in DEXTROSE 5%-WATER 100 ML IVPB SCH (09:03)
[2017-02-27] MEDS: METOPROLOL SUCCINATE 50 MG TAB.SR.24H (FP) PO SCH (09:03)
[2017-02-27] MEDS: amLODIPine BESYLATE 5 MG TABLET (FP) PO SCH (09:03)
[2017-02-27] MEDS: ALLOPURINOL 100 MG TABLET (FP) PO SCH (09:03)
[2017-02-27] MEDS: DOCUSATE SODIUM 100 MG CAPSULE (FP) PO SCH ×2 (09:03→22:00)
[2017-02-27] MEDS: LACTOBACILLUS ACIDOPHILUS 1 EACH TAB (FP) PO SCH (09:03)
[2017-02-27] MEDS: METHYL SALICYLATE/MENTHOL OINT 30 GM TUBE TP SCH ×2 (09:04→22:54)
[2017-02-27] MEDS: ENOXAPARIN NA (PORCINE) 40 MG/0.4 ML DISP.SYRIN SQ SCH (09:04)
[2017-02-27] MEDS: POLYETHYLENE GLYCOL 3350 119 GM BTL PO SCH (09:04)
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
--- NOTE | 2017-02-27 10:39 | PN ---
Progress Note (short form) - Note Progress Note: Renal follow up for ALBER vs CKD Pt seen and examined at the bedside has shoulder pain no sob, chest pain, abd pain, N/V/D Vital Signs Temperature 99.4 F 02/27/17 06:00 Pulse Rate 91 H 02/27/17 06:00 Respiratory Rate 20 02/27/17 06:00 Blood Pressure 135/64 02/27/17 06:00 O2 Sat by Pulse Oximetry (%) 98 02/26/17 21:00 Intake & Output 02/24/17 02/25/17 02/26/17 02/27/17 23:59 23:59 23:59 23:59 Intake Total 2800 2000 950 Balance 2800 2000 950 Gen: NAD CVS: RRR Lungs: CTA Abd: soft NT/ND Ext: no edema CBC, BMP 02/27/17 06:00 02/27/17 06:00 Current Medications Allopurinol (Zyloprim -) 100 mg PO DAILY [facility] Last Admin: 02/27/17 09:03 Dose: 100 mg Amlodipine Besylate (Norvasc -) 5 mg PO DAILY [facility] Last Admin: 02/27/17 09:03 Dose: 5 mg Docusate Sodium (Colace -) 100 mg PO BID [facility] Last Admin: 02/27/17 09:03 Dose: 100 mg Enoxaparin Sodium (Lovenox -) 40 mg SQ DAILY [facility] Last Admin: 02/27/17 09:04 Dose: 40 mg Ceftriaxone Sodium 2 gm/ (Dextrose) 100 mls @ 200 mls/hr IVPB DAILY [facility] Last Admin: 02/27/17 09:03 Dose: 200 mls/hr Lactobacillus Acidophilus (Bacid -) 1 tab PO DAILY [facility] Last Admin: 02/27/17 09:03 Dose: 1 tab Methyl Salicylate (Hilario-Sheppard -) 1 applic TP BID [facility] Last Admin: 02/27/17 09:04 Dose: 1 applic Metoprolol Succinate (Toprol Xl -) 50 mg PO DAILY [facility] Last Admin: 02/27/17 09:03 Dose: 50 mg Ondansetron HCl (Zofran Injection) 4 mg IVPB Q6H PRN PRN Reason: NAUSEA Oxycodone HCl (Roxicodone -) 10 mg PO Q4H PRN PRN Reason: PAIN Last Admin: 09/09/17 05:47 Dose: 10 mg Polyethylene Glycol (Miralax (For Daily Use) -) 17 gm PO DAILY [facility] Last Admin: 02/27/17 09:04 Dose: 17 gm Zolpidem Tartrate (Ambien -) 5 mg PO HS PRN PRN Reason: INSOMNIA Last Admin: 02/26/17 22:12 Dose: 5 mg A/P 71 year old gentleman with PMhx of HTN, Gout, CAD s/p PCI and stenting, CKD ( unknown baseline Cr), 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 #Acute on Chronic Renal Insufficiency Related to hemodynamic injury/Volume contraction Baseline Cr is 1.74 from 11/19/2016 Renal function now improved past baseline outpatient labs off IVF oral diet as tolerated avoid nsaids for pain control trend BUN/Cr #Joint pain/Joint effusion/Septic Joint s/p MRI, offical report pending ID and ortho follow up #Abnormal LFT's Us showed no pathology LFT's improving GI following #Hypertension BP is at goal on Metoprolol and amlodpine Edward Haddad DO Problem List - Problems (1) ALBER (acute kidney injury) Code(s): N17.9 - ACUTE KIDNEY FAILURE, UNSPECIFIED (2) CKD (chronic kidney disease) Code(s): N18.9 - CHRONIC KIDNEY DISEASE, UNSPECIFIED Qualifiers: Chronic kidney disease stage: stage 3 (moderate) Qualified Code(s): N18.3 - Chronic kidney disease, stage 3 (moderate) (3) Elevated liver enzymes Code(s): R74.8 - ABNORMAL LEVELS OF OTHER SERUM ENZYMES (4) Septic joint of right shoulder region Code(s): M00.9 - PYOGENIC ARTHRITIS, UNSPECIFIED (5) Abdominal pain Code(s): R10.9 - UNSPECIFIED ABDOMINAL PAIN (6) Azotemia Code(s): R79.89 - OTHER SPECIFIED ABNORMAL FINDINGS OF BLOOD CHEMISTRY
--- NOTE | 2017-02-27 12:28 | PN ---
Progress Note (short form) - Note Progress Note: Seen in follow up. Shoulder pain improving. No other complaints. Meds reviewed. Current Medications Generic Name Dose Route Start Last Admin Trade Name Freq PRN Reason Stop Dose Admin Allopurinol 100 mg 02/18/17 11:00 02/27/17 09:03 Zyloprim - PO 100 mg DAILY [facility] Administration Amlodipine Besylate 5 mg 02/18/17 10:00 02/27/17 09:03 Norvasc - PO 5 mg DAILY [facility] Administration Docusate Sodium 100 mg 02/17/17 22:00 02/27/17 09:03 Colace - PO 100 mg BID [facility] Administration Enoxaparin Sodium 40 mg 02/25/17 12:45 02/27/17 09:04 Lovenox - SQ 40 mg DAILY [facility] Administration Ceftriaxone Sodium 2 gm/ 100 mls @ 200 mls/hr 02/22/17 15:00 02/27/17 09:03 Dextrose IVPB 200 mls/hr DAILY [facility] Administration Lactobacillus Acidophilus 1 tab 02/18/17 10:00 02/27/17 09:03 Bacid - PO 1 tab DAILY [facility] Administration Methyl Salicylate 1 applic 02/22/17 10:00 02/27/17 09:04 Hilario-Sheppard - TP 1 applic BID [facility] Administration Metoprolol Succinate 50 mg 02/18/17 10:57 02/27/17 09:03 Toprol Xl - PO 50 mg DAILY [facility] Administration Ondansetron HCl 4 mg 02/17/17 15:03 Zofran Injection IVPB Q6H PRN NAUSEA Oxycodone HCl 10 mg 02/19/17 13:37 02/27/17 05:47 Roxicodone - PO 10 mg Q4H PRN Administration PAIN Polyethylene Glycol 17 gm 02/18/17 10:00 02/27/17 09:04 Miralax (For Daily Use) - PO 17 gm DAILY [facility] Administration Zolpidem Tartrate 5 mg 02/20/17 21:51 02/26/17 22:12 Ambien - PO 5 mg HS PRN Administration INSOMNIA On exam: Last Vital Signs Temp Pulse Resp BP Pulse Ox 99.4 F 91 H 20 135/64 98 02/27/17 06:00 02/27/17 06:00 02/27/17 09:00 02/27/17 06:00 02/27/17 09:00 General: Looks well, in bed. Extremities: No pallor, no icterus. Chest:breathing comfortably, Abdomen: Non-distended. Neuro: Alert, oriented, non-focal. CBC, BMP 02/27/17 06:00 02/27/17 06:00 Assessment. Suspected septic arthritis shoulder. Acute significant thrombocytosis - not present on admission. Reactive. Observe for now - would expect resolution of thrombocytosis with resolution of shoulder condition. Will follow with you.
--- NOTE | 2017-02-27 12:30 | PN ---
Progress Note, Physician History of Present Illness: stable no new issues - Current Medication List Current Medications: Active Medications Allopurinol (Zyloprim -) 100 mg PO DAILY [facility] Last Admin: 02/27/17 09:03 Dose: 100 mg Amlodipine Besylate (Norvasc -) 5 mg PO DAILY [facility] Last Admin: 02/27/17 09:03 Dose: 5 mg Docusate Sodium (Colace -) 100 mg PO BID [facility] Last Admin: 02/27/17 09:03 Dose: 100 mg Enoxaparin Sodium (Lovenox -) 40 mg SQ DAILY [facility] Last Admin: 02/27/17 09:04 Dose: 40 mg Ceftriaxone Sodium 2 gm/ (Dextrose) 100 mls @ 200 mls/hr IVPB DAILY [facility] Last Admin: 02/27/17 09:03 Dose: 200 mls/hr Lactobacillus Acidophilus (Bacid -) 1 tab PO DAILY [facility] Last Admin: 02/27/17 09:03 Dose: 1 tab Methyl Salicylate (Hilario-Sheppard -) 1 applic TP BID [facility] Last Admin: 02/27/17 09:04 Dose: 1 applic Metoprolol Succinate (Toprol Xl -) 50 mg PO DAILY [facility] Last Admin: 02/27/17 09:03 Dose: 50 mg Ondansetron HCl (Zofran Injection) 4 mg IVPB Q6H PRN PRN Reason: NAUSEA Oxycodone HCl (Roxicodone -) 10 mg PO Q4H PRN PRN Reason: PAIN Last Admin: 02/27/17 05:47 Dose: 10 mg Polyethylene Glycol (Miralax (For Daily Use) -) 17 gm PO DAILY [facility] Last Admin: 02/27/17 09:04 Dose: 17 gm Zolpidem Tartrate (Ambien -) 5 mg PO HS PRN PRN Reason: INSOMNIA Last Admin: 02/26/17 22:12 Dose: 5 mg - Objective Vital Signs: Vital Signs Temperature 99.4 F 02/27/17 06:00 Pulse Rate 91 H 02/27/17 06:00 Respiratory Rate 20 02/27/17 09:00 Blood Pressure 135/64 02/27/17 06:00 O2 Sat by Pulse Oximetry (%) 98 02/27/17 09:00 Constitutional: Yes: No Distress, Calm Cardiovascular: Yes: Regular Rate and Rhythm Respiratory: Yes: Regular, CTA Bilaterally Gastrointestinal: Yes: Normal Bowel Sounds, Soft Musculoskeletal: Yes: Other Extremities: Yes: Other Neurological: Yes: Alert, Oriented Psychiatric: Yes: Alert, Oriented Labs: CBC, BMP 02/27/17 06:00 02/27/17 06:00 Assessment/Plan Problem List - Problems (1) Cellulitis of multiple sites of upper limb and shoulder Code(s): L03.119 - CELLULITIS OF UNSPECIFIED PART OF LIMB (2) ALBER (acute kidney injury) Code(s): N17.9 - ACUTE KIDNEY FAILURE, UNSPECIFIED (3) CKD (chronic kidney disease) Code(s): N18.9 - CHRONIC KIDNEY DISEASE, UNSPECIFIED Qualifiers: Chronic kidney disease stage: stage 3 (moderate) Qualified Code(s): N18.3 - Chronic kidney disease, stage 3 (moderate) (4) Elevated liver enzymes Code(s): R74.8 - ABNORMAL LEVELS OF OTHER SERUM ENZYMES (5) CAD (coronary artery disease) Code(s): I25.10 - ATHSCL HEART DISEASE OF [place] CORONARY ARTERY W/O ANG PCTRS (6) Hypertension Code(s): I10 - ESSENTIAL (PRIMARY) HYPERTENSION (7) Gout Code(s): M10.9 - GOUT, UNSPECIFIED ortho note reviewed plan continue abx await for mri result final plan after that rest as per primary
--- NOTE | 2017-02-27 13:16 | PN ---
Progress Note (short form) - Note Progress Note: Patient is resting with no new complaints. Shoulder is less tender today. White count has been WNL for several days. Cannot actively lift his arm, but can be passively moved to 120 degrees of forward flexion. Shoulder does not appear tense. Would expect some fluid in shoulder on CT since aspiration can only deliver fluid from the upper half of the shoulder when aspirated from the lili-medial portal. Hopefully, CT can give us a comparative amount in relation to original scan. I agree with plan to cont. 5 weeks of antibiotics. Will defer to ID on whether or not he can be switched to p.o. on Disch. Would also like to get an MRI prior to discharge in order to formulate a plan for terminal manager treatment of his shoulder. Thank you, Ike Davison M.D. 02/28/2017 Patient is resting comfortably. HaD MRI at midnight last night. There is no official reading yet, but on review, humeral head is very high in the glenoid which suggests injury to the subscapularis muscle/tendon. Not much fluid seen on study and also, shoulder does not appear tense on exam. I will wait for offical reading, but I see no clinical reason to aspirate the joint at this time. I would expect the patient to be discharged after PICC line is inserted and home antibiotics have been arranged. I will follow and treat as an outpatient afterward. Ike Davison M.D.
[2017-02-28] MEDS: oxyCODONE HCL 5 MG TABLET PO PRN ×3 (00:39→20:00)
[2017-02-28 08:10] LABS: BASOPHIL 2.3 % (0-2.0); EOSINOPHIL 0.9 % (0-4.5); MCH 27.7 pg (25.7-33.7); MCHC 32.2 g/dl (32.0-35.9); MEAN CELL VOLUME 86.1 fl (80-96); MEAN PLT VOLUME 8.1 fl (7.5-11.1); NEUTROPHILS 59.2 % (42.8-82.8); PLATELET COUNT 1085 K/MM3 (134-434); WHITE BLOOD COUNT 5.7 K/mm3 (4.0-10.0)
[2017-02-28 08:49] LABS: ALBUMIN 1.9 g/dl (3.4-5.0); ANION GAP 11 (8-16); CALCIUM 8.8 mg/dL (8.5-10.1); CO2 27 mmol/L (21-32); CREATININE 1.4 mg/dL (0.7-1.3); GLUCOSE,RANDOM 83 mg/dL (74-106); SGOT/AST 21 U/L (15-37); SGPT/ALT 38 U/L (12-78)
[2017-02-28 08:51] LABS: ALK PHOS 208 U/L (45-117); BILIRUBIN,TOTAL 0.4 mg/dL (0.2-1.0)
[2017-02-28] MEDS ORDERED: PT OWN MED DRAWER 7, Y5N ONE (08:59)
[2017-02-28] MEDS ORDERED: DEXTROSE 5%-WATER 100 ML IVPB ONE (08:59)
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
[2017-02-28] MEDS: METOPROLOL SUCCINATE 50 MG TAB.SR.24H (FP) PO SCH (09:33)
[2017-02-28] MEDS: LACTOBACILLUS ACIDOPHILUS 1 EACH TAB (FP) PO SCH (09:33)
[2017-02-28] MEDS: DOCUSATE SODIUM 100 MG CAPSULE (FP) PO SCH ×2 (09:33→22:12)
[2017-02-28] MEDS: ALLOPURINOL 100 MG TABLET (FP) PO SCH (09:34)
[2017-02-28] MEDS: amLODIPine BESYLATE 5 MG TABLET (FP) PO SCH (09:34)
[2017-02-28] MEDS: CEFTRIAXONE 2 GM in DEXTROSE 5%-WATER 100 ML IVPB SCH (09:34)
[2017-02-28] MEDS: ENOXAPARIN NA (PORCINE) 40 MG/0.4 ML DISP.SYRIN SQ SCH (09:35)
[2017-02-28] MEDS: METHYL SALICYLATE/MENTHOL OINT 30 GM TUBE TP SCH ×2 (09:35→22:15)
--- NOTE | 2017-02-28 11:28 | PN ---
Progress Note (short form) - Note Progress Note: Seen in follow up. Shoulder pain improving. No other complaints. Meds reviewed. Current Medications Generic Name Dose Route Start Last Admin Trade Name Freq PRN Reason Stop Dose Admin Allopurinol 100 mg 02/18/17 11:00 02/28/17 09:34 Zyloprim - PO 100 mg DAILY [facility] Administration Amlodipine Besylate 5 mg 02/18/17 10:00 02/28/17 09:34 Norvasc - PO 5 mg DAILY [facility] Administration Docusate Sodium 100 mg 02/17/17 22:00 02/28/17 09:33 Colace - PO 100 mg BID [facility] Administration Enoxaparin Sodium 40 mg 02/25/17 12:45 02/28/17 09:35 Lovenox - SQ 40 mg DAILY [facility] Administration Ceftriaxone Sodium 2 gm/ 100 mls @ 200 mls/hr 02/22/17 15:00 02/28/17 09:34 Dextrose IVPB 200 mls/hr DAILY [facility] Administration Lactobacillus Acidophilus 1 tab 02/18/17 10:00 02/28/17 09:33 Bacid - PO 1 tab DAILY [facility] Administration Methyl Salicylate 1 applic 02/22/17 10:00 02/28/17 09:35 Hilario-Sheppard - TP 1 applic BID [facility] Administration Metoprolol Succinate 50 mg 02/18/17 10:57 02/28/17 09:33 Toprol Xl - PO 50 mg DAILY [facility] Administration Ondansetron HCl 4 mg 02/17/17 15:03 Zofran Injection IVPB Q6H PRN NAUSEA Oxycodone HCl 10 mg 02/19/17 13:37 02/28/17 00:39 Roxicodone - PO 10 mg Q4H PRN Administration PAIN Polyethylene Glycol 17 gm 02/18/17 10:00 02/27/17 09:04 Miralax (For Daily Use) - PO 17 gm DAILY [facility] Administration Zolpidem Tartrate 5 mg 02/20/17 21:51 02/26/17 22:12 Ambien - PO 5 mg HS PRN Administration INSOMNIA On exam: Last Vital Signs Temp Pulse Resp BP Pulse Ox 98.5 F 87 20 105/46 98 02/28/17 05:38 02/28/17 05:38 02/28/17 05:38 02/28/17 05:38 02/27/17 21:00 General: Looks well, in bed. Extremities: No pallor, no icterus. Chest:breathing comfortably, Abdomen: Non-distended. Neuro: Alert, oriented, non-focal. CBC, BMP 02/28/17 06:45 02/28/17 06:45 Assessment. Suspected septic arthritis shoulder. Acute significant thrombocytosis - not present on admission. Reactive. Platelet count lower today than yesterday. Observe for now - would expect resolution of thrombocytosis with resolution of shoulder condition. Will follow with you.
[2017-02-28] MEDS: POLYETHYLENE GLYCOL 3350 119 GM BTL PO SCH (13:25)
--- NOTE | 2017-02-28 13:55 | PN ---
Progress Note, Physician History of Present Illness: stable no new issues - Current Medication List Current Medications: Active Medications Allopurinol (Zyloprim -) 100 mg PO DAILY [facility] Last Admin: 02/28/17 09:34 Dose: 100 mg Amlodipine Besylate (Norvasc -) 5 mg PO DAILY [facility] Last Admin: 02/28/17 09:34 Dose: 5 mg Docusate Sodium (Colace -) 100 mg PO BID [facility] Last Admin: 02/28/17 09:33 Dose: 100 mg Enoxaparin Sodium (Lovenox -) 40 mg SQ DAILY [facility] Last Admin: 02/28/17 09:35 Dose: 40 mg Ceftriaxone Sodium 2 gm/ (Dextrose) 100 mls @ 200 mls/hr IVPB DAILY [facility] Last Admin: 02/28/17 09:34 Dose: 200 mls/hr Lactobacillus Acidophilus (Bacid -) 1 tab PO DAILY [facility] Last Admin: 02/28/17 09:33 Dose: 1 tab Methyl Salicylate (Hilario-Sheppard -) 1 applic TP BID [facility] Last Admin: 02/28/17 09:35 Dose: 1 applic Metoprolol Succinate (Toprol Xl -) 50 mg PO DAILY [facility] Last Admin: 02/28/17 09:33 Dose: 50 mg Ondansetron HCl (Zofran Injection) 4 mg IVPB Q6H PRN PRN Reason: NAUSEA Oxycodone HCl (Roxicodone -) 10 mg PO Q4H PRN PRN Reason: PAIN Last Admin: 02/28/17 13:23 Dose: 10 mg Polyethylene Glycol (Miralax (For Daily Use) -) 17 gm PO DAILY [facility] Last Admin: 02/28/17 13:25 Dose: 17 gm Zolpidem Tartrate (Ambien -) 5 mg PO HS PRN PRN Reason: INSOMNIA Last Admin: 02/26/17 22:12 Dose: 5 mg - Objective Vital Signs: Vital Signs Temperature 98.3 F 02/28/17 09:00 Pulse Rate 96 H 02/28/17 09:00 Respiratory Rate 20 02/28/17 09:00 Blood Pressure 134/88 02/28/17 09:00 O2 Sat by Pulse Oximetry (%) 98 02/28/17 09:00 Constitutional: Yes: No Distress, Calm Cardiovascular: Yes: Regular Rate and Rhythm Respiratory: Yes: Regular, CTA Bilaterally Gastrointestinal: Yes: Normal Bowel Sounds, Soft Musculoskeletal: Yes: WNL Extremities: Yes: Other (minimal movement of the right arm) Neurological: Yes: Alert, Oriented Psychiatric: Yes: Alert, Oriented Labs: CBC, BMP 02/28/17 06:45 02/28/17 06:45 - ....Imaging MRI: Report Reviewed, Image Reviewed Assessment/Plan Problem List - Problems (1) Cellulitis of multiple sites of upper limb and shoulder Code(s): L03.119 - CELLULITIS OF UNSPECIFIED PART OF LIMB (2) ALBER (acute kidney injury) Code(s): N17.9 - ACUTE KIDNEY FAILURE, UNSPECIFIED (3) CKD (chronic kidney disease) Code(s): N18.9 - CHRONIC KIDNEY DISEASE, UNSPECIFIED Qualifiers: Chronic kidney disease stage: stage 3 (moderate) Qualified Code(s): N18.3 - Chronic kidney disease, stage 3 (moderate) (4) Elevated liver enzymes Code(s): R74.8 - ABNORMAL LEVELS OF OTHER SERUM ENZYMES (5) CAD (coronary artery disease) Code(s): I25.10 - ATHSCL HEART DISEASE OF [place] CORONARY ARTERY W/O ANG PCTRS (6) Hypertension Code(s): I10 - ESSENTIAL (PRIMARY) HYPERTENSION (7) Gout Code(s): M10.9 - GOUT, UNSPECIFIED ortho note reviewed plan continue abx mri result noted patient needs aspiration of the joint again rest as per primary
[2017-03-01] MEDS: oxyCODONE HCL 5 MG TABLET PO PRN ×3 (01:20→20:17)
--- NOTE | 2017-03-01 07:59 | PN ---
Progress Note (short form) - Note Progress Note: MRI results noted. Will aspirate right shoulder later today.
[2017-03-01 08:02] LABS: BASOPHIL 2.8 % (0-2.0); EOSINOPHIL 0.6 % (0-4.5); MCH 28.7 pg (25.7-33.7); MCHC 33.4 g/dl (32.0-35.9); MEAN CELL VOLUME 85.9 fl (80-96); MEAN PLT VOLUME 8.4 fl (7.5-11.1); NEUTROPHILS 58.8 % (42.8-82.8); RDW 14.9 % (11.9-15.9)
[2017-03-01 08:18] LABS: PLATELET COUNT 1273 K/MM3 (134-434)
[2017-03-01 08:21] LABS: ALBUMIN 2.3 g/dl (3.4-5.0); ANION GAP 11 (8-16); CALCIUM 9.6 mg/dL (8.5-10.1); CO2 28 mmol/L (21-32); CREATININE 1.4 mg/dL (0.7-1.3); GLUCOSE,RANDOM 99 mg/dL (74-106); SGOT/AST 20 U/L (15-37)
[2017-03-01 08:23] LABS: ALK PHOS 211 U/L (45-117); BILIRUBIN,TOTAL 0.7 mg/dL (0.2-1.0); SGPT/ALT 38 U/L (12-78); TOT PROT 6.9 g/dl (6.4-8.2)
[2017-03-01] MEDS ORDERED: PT OWN MED DRAWER 7, Y5N ONE (09:46)
[2017-03-01] MEDS ORDERED: DEXTROSE 5%-WATER 100 ML IVPB ONE (09:47)
[2017-03-01] MEDS: ALLOPURINOL 100 MG TABLET (FP) PO SCH (09:53)
[2017-03-01] MEDS: ENOXAPARIN NA (PORCINE) 40 MG/0.4 ML DISP.SYRIN SQ SCH (09:53)
[2017-03-01] MEDS: DOCUSATE SODIUM 100 MG CAPSULE (FP) PO SCH ×2 (09:53→21:02)
[2017-03-01] MEDS: METOPROLOL SUCCINATE 50 MG TAB.SR.24H (FP) PO SCH (09:53)
[2017-03-01] MEDS: LACTOBACILLUS ACIDOPHILUS 1 EACH TAB (FP) PO SCH (09:53)
[2017-03-01] MEDS: amLODIPine BESYLATE 5 MG TABLET (FP) PO SCH (09:54)
[2017-03-01] MEDS: CEFTRIAXONE 2 GM in DEXTROSE 5%-WATER 100 ML IVPB SCH (09:54)
[2017-03-01] MEDS: METHYL SALICYLATE/MENTHOL OINT 30 GM TUBE TP SCH ×2 (09:55→21:02)
[2017-03-01] MEDS: POLYETHYLENE GLYCOL 3350 119 GM BTL PO SCH (10:13)
--- NOTE | 2017-03-01 12:41 | PN ---
Progress Note, Physician History of Present Illness: stable no new issues plan is to tap the joint today patient improving - Current Medication List Current Medications: Active Medications Allopurinol (Zyloprim -) 100 mg PO DAILY [facility] Last Admin: 03/01/17 09:53 Dose: 100 mg Amlodipine Besylate (Norvasc -) 5 mg PO DAILY [facility] Last Admin: 03/01/17 09:54 Dose: 5 mg Docusate Sodium (Colace -) 100 mg PO BID [facility] Last Admin: 03/01/17 09:53 Dose: Not Given Enoxaparin Sodium (Lovenox -) 40 mg SQ DAILY [facility] Last Admin: 03/01/17 09:53 Dose: 40 mg Ceftriaxone Sodium 2 gm/ (Dextrose) 100 mls @ 200 mls/hr IVPB DAILY [facility] Last Admin: 03/01/17 09:54 Dose: 200 mls/hr Lactobacillus Acidophilus (Bacid -) 1 tab PO DAILY [facility] Last Admin: 03/01/17 09:53 Dose: 1 tab Methyl Salicylate (Hilario-Sheppard -) 1 applic TP BID [facility] Last Admin: 03/01/17 09:55 Dose: Not Given Metoprolol Succinate (Toprol Xl -) 50 mg PO DAILY [facility] Last Admin: 03/01/17 09:53 Dose: 50 mg Ondansetron HCl (Zofran Injection) 4 mg IVPB Q6H PRN PRN Reason: NAUSEA Oxycodone HCl (Roxicodone -) 10 mg PO Q4H PRN PRN Reason: PAIN Last Admin: 03/01/17 01:20 Dose: 10 mg Polyethylene Glycol (Miralax (For Daily Use) -) 17 gm PO DAILY [facility] Last Admin: 03/01/17 10:13 Dose: 17 gm Zolpidem Tartrate (Ambien -) 5 mg PO HS PRN PRN Reason: INSOMNIA Last Admin: 02/26/17 22:12 Dose: 5 mg - Objective Vital Signs: Vital Signs Temperature 98.6 F 03/01/17 10:00 Pulse Rate 107 H 03/01/17 10:00 Respiratory Rate 20 03/01/17 10:00 Blood Pressure 127/60 03/01/17 10:00 O2 Sat by Pulse Oximetry (%) 98 02/28/17 09:00 Constitutional: Yes: No Distress, Calm Cardiovascular: Yes: Regular Rate and Rhythm Respiratory: Yes: Regular, CTA Bilaterally Gastrointestinal: Yes: Normal Bowel Sounds, Soft Musculoskeletal: Yes: WNL Extremities: Yes: Other Neurological: Yes: Alert, Oriented Psychiatric: Yes: Alert, Oriented Labs: CBC, BMP 03/01/17 07:15 03/01/17 07:15 Assessment/Plan Problem List - Problems (1) Cellulitis of multiple sites of upper limb and shoulder Code(s): L03.119 - CELLULITIS OF UNSPECIFIED PART OF LIMB (2) ALBER (acute kidney injury) Code(s): N17.9 - ACUTE KIDNEY FAILURE, UNSPECIFIED (3) CKD (chronic kidney disease) Code(s): N18.9 - CHRONIC KIDNEY DISEASE, UNSPECIFIED Qualifiers: Chronic kidney disease stage: stage 3 (moderate) Qualified Code(s): N18.3 - Chronic kidney disease, stage 3 (moderate) (4) Elevated liver enzymes Code(s): R74.8 - ABNORMAL LEVELS OF OTHER SERUM ENZYMES (5) CAD (coronary artery disease) Code(s): I25.10 - ATHSCL HEART DISEASE OF [place] CORONARY ARTERY W/O ANG PCTRS (6) Hypertension Code(s): I10 - ESSENTIAL (PRIMARY) HYPERTENSION (7) Gout Code(s): M10.9 - GOUT, UNSPECIFIED ortho note reviewed plan continue abx patients joint going to be aspirated please send fluid for cx and sensitivity rest continue current mgmt
--- NOTE | 2017-03-01 15:01 | PN ---
Progress Note, Physician Chief Complaint: Mr Jones shoulder pain unchanged but otherwise without physical complaint. No cp , sob, n/v. s/p aspiration - Current Medication List Current Medications: Active Medications Allopurinol (Zyloprim -) 100 mg PO DAILY [facility] Last Admin: 03/01/17 09:53 Dose: 100 mg Amlodipine Besylate (Norvasc -) 5 mg PO DAILY [facility] Last Admin: 03/01/17 09:54 Dose: 5 mg Docusate Sodium (Colace -) 100 mg PO BID [facility] Last Admin: 03/01/17 09:53 Dose: Not Given Enoxaparin Sodium (Lovenox -) 40 mg SQ DAILY [facility] Last Admin: 03/01/17 09:53 Dose: 40 mg Ceftriaxone Sodium 2 gm/ (Dextrose) 100 mls @ 200 mls/hr IVPB DAILY [facility] Last Admin: 03/01/17 09:54 Dose: 200 mls/hr Lactobacillus Acidophilus (Bacid -) 1 tab PO DAILY [facility] Last Admin: 03/01/17 09:53 Dose: 1 tab Methyl Salicylate (Hilario-Sheppard -) 1 applic TP BID [facility] Last Admin: 03/01/17 09:55 Dose: Not Given Metoprolol Succinate (Toprol Xl -) 50 mg PO DAILY [facility] Last Admin: 03/01/17 09:53 Dose: 50 mg Ondansetron HCl (Zofran Injection) 4 mg IVPB Q6H PRN PRN Reason: NAUSEA Oxycodone HCl (Roxicodone -) 10 mg PO Q4H PRN PRN Reason: PAIN Last Admin: 03/01/17 13:26 Dose: 10 mg Polyethylene Glycol (Miralax (For Daily Use) -) 17 gm PO DAILY [facility] Last Admin: 03/01/17 10:13 Dose: 17 gm Zolpidem Tartrate (Ambien -) 5 mg PO HS PRN PRN Reason: INSOMNIA Last Admin: 02/26/17 22:12 Dose: 5 mg - Objective Vital Signs: Vital Signs Temperature 37.0 C 03/01/17 10:00 Pulse Rate 107 H 03/01/17 10:00 Respiratory Rate 20 03/01/17 10:00 Blood Pressure 127/60 03/01/17 10:00 O2 Sat by Pulse Oximetry (%) 96 03/01/17 09:00 Constitutional: Yes: Well Nourished, No Distress, Calm Cardiovascular: Yes: Regular Rate and Rhythm. No: Gallop, Murmur, Rub Respiratory: Yes: Regular, CTA Bilaterally. No: Rales, Rhonchi, Wheezes Gastrointestinal: Yes: Normal Bowel Sounds, Soft. No: Distention, Tenderness Extremities: Yes: WNL Edema: No Labs: CBC, BMP 03/01/17 07:15 03/01/17 07:15 Problem List - Problems (1) Septic joint of right shoulder region Code(s): M00.9 - PYOGENIC ARTHRITIS, UNSPECIFIED (2) Cellulitis of multiple sites of upper limb and shoulder Code(s): L03.119 - CELLULITIS OF UNSPECIFIED PART OF LIMB (3) ALBER (acute kidney injury) Code(s): N17.9 - ACUTE KIDNEY FAILURE, UNSPECIFIED (4) CKD (chronic kidney disease) Code(s): N18.9 - CHRONIC KIDNEY DISEASE, UNSPECIFIED Qualifiers: Chronic kidney disease stage: stage 3 (moderate) Qualified Code(s): N18.3 - Chronic kidney disease, stage 3 (moderate) (5) Elevated liver enzymes Code(s): R74.8 - ABNORMAL LEVELS OF OTHER SERUM ENZYMES (6) CAD (coronary artery disease) Code(s): I25.10 - ATHSCL HEART DISEASE OF [place] CORONARY ARTERY W/O ANG PCTRS (7) Hypertension Code(s): I10 - ESSENTIAL (PRIMARY) HYPERTENSION (8) Gout Code(s): M10.9 - GOUT, UNSPECIFIED Assessment/Plan (1) Septic R shoulder joint with cellulitis Assessment/Plan: -appreciate ID and ortho recommendation -s/p aspiration today -continue rocephin -will need PICC line for outpatient antibiotics -will d/w ID about duration Code(s): L03.119 - CELLULITIS OF UNSPECIFIED PART OF LIMB (2) ALBER (acute kidney injury) Assessment/Plan: -back at baseline Code(s): N17.9 - ACUTE KIDNEY FAILURE, UNSPECIFIED (3) CKD (chronic kidney disease) Assessment/Plan: -appreciate nephrology assistance Code(s): N18.9 - CHRONIC KIDNEY DISEASE, UNSPECIFIED Qualifiers: Chronic kidney disease stage: stage 3 (moderate) Qualified Code(s): N18.3 - Chronic kidney disease, stage 3 (moderate) (4) Elevated liver enzymes Assessment/Plan: -appreciate GI assistance -improving Code(s): R74.8 - ABNORMAL LEVELS OF OTHER SERUM ENZYMES (5) CAD (coronary artery disease) Assessment/Plan: -continue home regimen Code(s): I25.10 - ATHSCL HEART DISEASE OF [place] CORONARY ARTERY W/O ANG PCTRS (6) Hypertension Assessment/Plan: -continue norvasc -increased toprol xl -lisinopril held secondary to renal function -well controlled on current regimen Code(s): I10 - ESSENTIAL (PRIMARY) HYPERTENSION (7) Gout Assessment/Plan: -continue allopurinol Code(s): M10.9 - GOUT, UNSPECIFIED (8) Hyperkalemia -resolved (9) Elevated platelets -hematology following -still increasing -suspect secondary to sepsis -monitor for improvement now that shoulder has been aspirated for a second time
--- NOTE | 2017-03-01 15:15 | PN ---
Progress Note (short form) - Note Progress Note: 40cc of bloody fluid aspirated from anterior aspect right shoulder. Patient tolerated it well. Sent for CS cell count and crystals. Awaiting results.
[2017-03-01 15:51] LABS: CRYSTALS,SYNOVIAL FLUID NEGATIVE
--- NOTE | 2017-03-01 18:48 | PN ---
Progress Note (short form) - Note Progress Note: Renal follow up for ALBER vs CKD Pt seen and examined at the bedside no acute complaints for shoulder aspiration today Vital Signs Temperature 100.1 F H 03/01/17 17:00 Pulse Rate 88 03/01/17 17:00 Respiratory Rate 20 03/01/17 17:00 Blood Pressure 127/65 03/01/17 17:00 O2 Sat by Pulse Oximetry (%) 96 03/01/17 09:00 Intake & Output 02/26/17 02/27/17 02/28/17 03/01/17 23:59 23:59 23:59 23:59 Intake Total 950 700 700 960 Balance 950 700 700 960 Gen: NAD CVS: RRR Lungs: CTA Abd: soft NT/ND Ext: no edema CBC, BMP 03/01/17 07:15 03/01/17 07:15 Laboratory Tests 02/24/17 03/01/17 06:30 07:15 BUN Pending Calcium 9.6 Albumin 2.3 L D Current Medications Allopurinol (Zyloprim -) 100 mg PO DAILY [facility] Last Admin: 03/01/17 09:53 Dose: 100 mg Amlodipine Besylate (Norvasc -) 5 mg PO DAILY [facility] Last Admin: 03/01/17 09:54 Dose: 5 mg Docusate Sodium (Colace -) 100 mg PO BID [facility] Last Admin: 03/01/17 09:53 Dose: Not Given Enoxaparin Sodium (Lovenox -) 40 mg SQ DAILY [facility] Last Admin: 03/01/17 09:53 Dose: 40 mg Ceftriaxone Sodium 2 gm/ (Dextrose) 100 mls @ 200 mls/hr IVPB DAILY [facility] Last Admin: 03/01/17 09:54 Dose: 200 mls/hr Lactobacillus Acidophilus (Bacid -) 1 tab PO DAILY [facility] Last Admin: 03/01/17 09:53 Dose: 1 tab Methyl Salicylate (Hilario-Sheppard -) 1 applic TP BID [facility] Last Admin: 03/01/17 09:55 Dose: Not Given Metoprolol Succinate (Toprol Xl -) 50 mg PO DAILY [facility] Last Admin: 03/01/17 09:53 Dose: 50 mg Ondansetron HCl (Zofran Injection) 4 mg IVPB Q6H PRN PRN Reason: NAUSEA Oxycodone HCl (Roxicodone -) 10 mg PO Q4H PRN PRN Reason: PAIN Last Admin: 03/01/17 13:26 Dose: 10 mg Polyethylene Glycol (Miralax (For Daily Use) -) 17 gm PO DAILY [facility] Last Admin: 03/01/17 10:13 Dose: 17 gm Zolpidem Tartrate (Ambien -) 5 mg PO HS PRN PRN Reason: INSOMNIA Last Admin: 02/26/17 22:12 Dose: 5 mg A/P 71 year old gentleman with PMhx of HTN, Gout, CAD s/p PCI and stenting, CKD ( unknown baseline Cr), 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 #Acute on Chronic Renal Insufficiency Renal function now improved to baseline, pt w/o electrolyte abnormalities, volume overload or acidosis would trend BUN/Cr while inpatient avoid nsaids if possible #Joint pain/Joint effusion/Septic Joint s/p MRI, offical report pending ID and ortho follow up Will sign off case at this time please call with any questions or concerns Edward Haddad DO Problem List - Problems (1) ALBER (acute kidney injury) Code(s): N17.9 - ACUTE KIDNEY FAILURE, UNSPECIFIED (2) CKD (chronic kidney disease) Code(s): N18.9 - CHRONIC KIDNEY DISEASE, UNSPECIFIED Qualifiers: Chronic kidney disease stage: stage 3 (moderate) Qualified Code(s): N18.3 - Chronic kidney disease, stage 3 (moderate) (3) Elevated liver enzymes Code(s): R74.8 - ABNORMAL LEVELS OF OTHER SERUM ENZYMES (4) Septic joint of right shoulder region Code(s): M00.9 - PYOGENIC ARTHRITIS, UNSPECIFIED (5) Abdominal pain Code(s): R10.9 - UNSPECIFIED ABDOMINAL PAIN (6) Azotemia Code(s): R79.89 - OTHER SPECIFIED ABNORMAL FINDINGS OF BLOOD CHEMISTRY
[2017-03-02] MEDS: oxyCODONE HCL 5 MG TABLET PO PRN ×4 (01:04→23:03)
[2017-03-02 07:28] LABS: BASOPHIL 2.5 % (0-2.0); EOSINOPHIL 0.8 % (0-4.5); MCH 28.1 pg (25.7-33.7); MCHC 32.6 g/dl (32.0-35.9); MEAN CELL VOLUME 86.4 fl (80-96); MEAN PLT VOLUME 8.3 fl (7.5-11.1); NEUTROPHILS 58.1 % (42.8-82.8); PLATELET COUNT 1043 K/MM3 (134-434); RDW 14.9 % (11.9-15.9)
[2017-03-02 08:01] LABS: ANION GAP 9 (8-16); CALCIUM 9.1 mg/dL (8.5-10.1); CO2 29 mmol/L (21-32); GLUCOSE,RANDOM 88 mg/dL (74-106); MAGNESIUM 2.3 mg/dL (1.8-2.4)
[2017-03-02 08:02] LABS: CREATININE 1.4 mg/dL (0.7-1.3); PHOSPHOROUS 4.3 mg/dL (2.5-4.9)
[2017-03-02] MEDS ORDERED: DEXTROSE 5%-WATER 100 ML IVPB ONE (10:06)
[2017-03-02] MEDS: METOPROLOL SUCCINATE 50 MG TAB.SR.24H (FP) PO SCH (10:11)
[2017-03-02] MEDS: ALLOPURINOL 100 MG TABLET (FP) PO SCH (10:11)
[2017-03-02] MEDS: LACTOBACILLUS ACIDOPHILUS 1 EACH TAB (FP) PO SCH (10:11)
[2017-03-02] MEDS: DOCUSATE SODIUM 100 MG CAPSULE (FP) PO SCH ×2 (10:12→21:07)
[2017-03-02] MEDS: POLYETHYLENE GLYCOL 3350 119 GM BTL PO SCH (10:12)
[2017-03-02] MEDS: CEFTRIAXONE 2 GM in DEXTROSE 5%-WATER 100 ML IVPB SCH (10:12)
[2017-03-02] MEDS: amLODIPine BESYLATE 5 MG TABLET (FP) PO SCH (10:12)
[2017-03-02] MEDS: METHYL SALICYLATE/MENTHOL OINT 30 GM TUBE TP SCH ×2 (10:13→21:07)
[2017-03-02] MEDS: ENOXAPARIN NA (PORCINE) 40 MG/0.4 ML DISP.SYRIN SQ SCH (11:02)
--- NOTE | 2017-03-02 11:42 | PN ---
Progress Note, Physician Chief Complaint: Mr Jones complains of some "twinges" in his left foot. No cp, sob, n/v. - Current Medication List Current Medications: Active Medications Allopurinol (Zyloprim -) 100 mg PO DAILY [facility] Last Admin: 03/02/17 10:11 Dose: 100 mg Amlodipine Besylate (Norvasc -) 5 mg PO DAILY [facility] Last Admin: 03/02/17 10:12 Dose: 5 mg Docusate Sodium (Colace -) 100 mg PO BID [facility] Last Admin: 03/02/17 10:12 Dose: Not Given Enoxaparin Sodium (Lovenox -) 40 mg SQ DAILY [facility] Last Admin: 03/02/17 11:02 Dose: 40 mg Ceftriaxone Sodium 2 gm/ (Dextrose) 100 mls @ 200 mls/hr IVPB DAILY [facility] Last Admin: 03/02/17 10:12 Dose: 200 mls/hr Lactobacillus Acidophilus (Bacid -) 1 tab PO DAILY [facility] Last Admin: 03/02/17 10:11 Dose: 1 tab Methyl Salicylate (Hilario-Sheppard -) 1 applic TP BID [facility] Last Admin: 03/02/17 10:13 Dose: 1 applic Metoprolol Succinate (Toprol Xl -) 50 mg PO DAILY [facility] Last Admin: 03/02/17 10:11 Dose: 50 mg Ondansetron HCl (Zofran Injection) 4 mg IVPB Q6H PRN PRN Reason: NAUSEA Oxycodone HCl (Roxicodone -) 10 mg PO Q4H PRN PRN Reason: PAIN Last Admin: 03/02/17 10:30 Dose: 10 mg Polyethylene Glycol (Miralax (For Daily Use) -) 17 gm PO DAILY [facility] Last Admin: 03/02/17 10:12 Dose: 17 gm Zolpidem Tartrate (Ambien -) 5 mg PO HS PRN PRN Reason: INSOMNIA Last Admin: 02/26/17 22:12 Dose: 5 mg - Objective Vital Signs: Vital Signs Temperature 37.3 C 03/02/17 08:43 Pulse Rate 94 H 03/02/17 08:43 Respiratory Rate 16 03/02/17 08:43 Blood Pressure 127/66 03/02/17 08:43 O2 Sat by Pulse Oximetry (%) 95 03/02/17 09:00 Constitutional: Yes: Well Nourished, No Distress, Calm Cardiovascular: Yes: Regular Rate and Rhythm. No: Gallop, Murmur, Rub Respiratory: Yes: Regular, CTA Bilaterally. No: Rales, Rhonchi, Wheezes Gastrointestinal: Yes: Normal Bowel Sounds, Soft. No: Distention, Tenderness Extremities: Yes: WNL Edema: No Labs: CBC, BMP 03/02/17 06:00 03/02/17 06:00 Problem List - Problems (1) Septic joint of right shoulder region Code(s): M00.9 - PYOGENIC ARTHRITIS, UNSPECIFIED (2) Cellulitis of multiple sites of upper limb and shoulder Code(s): L03.119 - CELLULITIS OF UNSPECIFIED PART OF LIMB (3) ALBER (acute kidney injury) Code(s): N17.9 - ACUTE KIDNEY FAILURE, UNSPECIFIED (4) CKD (chronic kidney disease) Code(s): N18.9 - CHRONIC KIDNEY DISEASE, UNSPECIFIED Qualifiers: Chronic kidney disease stage: stage 3 (moderate) Qualified Code(s): N18.3 - Chronic kidney disease, stage 3 (moderate) (5) Elevated liver enzymes Code(s): R74.8 - ABNORMAL LEVELS OF OTHER SERUM ENZYMES (6) CAD (coronary artery disease) Code(s): I25.10 - ATHSCL HEART DISEASE OF [place] CORONARY ARTERY W/O ANG PCTRS (7) Hypertension Code(s): I10 - ESSENTIAL (PRIMARY) HYPERTENSION (8) Gout Code(s): M10.9 - GOUT, UNSPECIFIED Assessment/Plan (1) Septic R shoulder joint with cellulitis Assessment/Plan: -appreciate ID and ortho recommendation -s/p aspiration yesterday -continue rocephin -will need PICC line for outpatient antibiotics -will d/w ID about duration Code(s): L03.119 - CELLULITIS OF UNSPECIFIED PART OF LIMB (2) ALBER (acute kidney injury) Assessment/Plan: -back at baseline Code(s): N17.9 - ACUTE KIDNEY FAILURE, UNSPECIFIED (3) CKD (chronic kidney disease) Assessment/Plan: -appreciate nephrology assistance Code(s): N18.9 - CHRONIC KIDNEY DISEASE, UNSPECIFIED Qualifiers: Chronic kidney disease stage: stage 3 (moderate) Qualified Code(s): N18.3 - Chronic kidney disease, stage 3 (moderate) (4) Elevated liver enzymes Assessment/Plan: -appreciate GI assistance -improving Code(s): R74.8 - ABNORMAL LEVELS OF OTHER SERUM ENZYMES (5) CAD (coronary artery disease) Assessment/Plan: -continue home regimen Code(s): I25.10 - ATHSCL HEART DISEASE OF [place] CORONARY ARTERY W/O ANG PCTRS (6) Hypertension Assessment/Plan: -continue norvasc -increased toprol xl -lisinopril held secondary to renal function -well controlled on current regimen Code(s): I10 - ESSENTIAL (PRIMARY) HYPERTENSION (7) Gout Assessment/Plan: -continue allopurinol -case d/w nephrology -will hold on steroids secondary to primary diagnosis -low dose colchicine Code(s): M10.9 - GOUT, UNSPECIFIED (8) Hyperkalemia -case d/w nephrology -encourage patient to decrease oral potassium intake (9) Elevated platelets -hematology following -improving -secondary to sepsis/infection
--- NOTE | 2017-03-02 13:59 | PN ---
Progress Note, Physician History of Present Illness: stable no new issues joint tapped fluid removed - Current Medication List Current Medications: Active Medications Allopurinol (Zyloprim -) 100 mg PO DAILY [facility] Last Admin: 03/02/17 10:11 Dose: 100 mg Amlodipine Besylate (Norvasc -) 5 mg PO DAILY [facility] Last Admin: 03/02/17 10:12 Dose: 5 mg Docusate Sodium (Colace -) 100 mg PO BID [facility] Last Admin: 03/02/17 10:12 Dose: Not Given Enoxaparin Sodium (Lovenox -) 40 mg SQ DAILY [facility] Last Admin: 03/02/17 11:02 Dose: 40 mg Ceftriaxone Sodium 2 gm/ (Dextrose) 100 mls @ 200 mls/hr IVPB DAILY [facility] Last Admin: 03/02/17 10:12 Dose: 200 mls/hr Lactobacillus Acidophilus (Bacid -) 1 tab PO DAILY [facility] Last Admin: 03/02/17 10:11 Dose: 1 tab Methyl Salicylate (Hilario-Sheppard -) 1 applic TP BID [facility] Last Admin: 03/02/17 10:13 Dose: 1 applic Metoprolol Succinate (Toprol Xl -) 50 mg PO DAILY [facility] Last Admin: 03/02/17 10:11 Dose: 50 mg Ondansetron HCl (Zofran Injection) 4 mg IVPB Q6H PRN PRN Reason: NAUSEA Oxycodone HCl (Roxicodone -) 10 mg PO Q4H PRN PRN Reason: PAIN Last Admin: 03/02/17 10:30 Dose: 10 mg Polyethylene Glycol (Miralax (For Daily Use) -) 17 gm PO DAILY [facility] Last Admin: 03/02/17 10:12 Dose: 17 gm Zolpidem Tartrate (Ambien -) 5 mg PO HS PRN PRN Reason: INSOMNIA Last Admin: 02/26/17 22:12 Dose: 5 mg - Objective Vital Signs: Vital Signs Temperature 99.2 F 03/02/17 08:43 Pulse Rate 94 H 03/02/17 08:43 Respiratory Rate 16 03/02/17 08:43 Blood Pressure 127/66 03/02/17 08:43 O2 Sat by Pulse Oximetry (%) 95 03/02/17 09:00 Constitutional: Yes: No Distress, Calm Cardiovascular: Yes: Regular Rate and Rhythm Respiratory: Yes: Regular, CTA Bilaterally Gastrointestinal: Yes: Normal Bowel Sounds, Soft Musculoskeletal: Yes: Other Extremities: Yes: Other (minimal movement still) Neurological: Yes: Alert, Oriented Psychiatric: Yes: Alert, Oriented Labs: CBC, BMP 03/02/17 06:00 03/02/17 06:00 Assessment/Plan Problem List - Problems (1) Cellulitis of multiple sites of upper limb and shoulder Code(s): L03.119 - CELLULITIS OF UNSPECIFIED PART OF LIMB (2) ALBER (acute kidney injury) Code(s): N17.9 - ACUTE KIDNEY FAILURE, UNSPECIFIED (3) CKD (chronic kidney disease) Code(s): N18.9 - CHRONIC KIDNEY DISEASE, UNSPECIFIED Qualifiers: Chronic kidney disease stage: stage 3 (moderate) Qualified Code(s): N18.3 - Chronic kidney disease, stage 3 (moderate) (4) Elevated liver enzymes Code(s): R74.8 - ABNORMAL LEVELS OF OTHER SERUM ENZYMES (5) CAD (coronary artery disease) Code(s): I25.10 - ATHSCL HEART DISEASE OF [place] CORONARY ARTERY W/O ANG PCTRS (6) Hypertension Code(s): I10 - ESSENTIAL (PRIMARY) HYPERTENSION (7) Gout Code(s): M10.9 - GOUT, UNSPECIFIED ortho note reviewed plan continue abx await for final cx reports
--- NOTE | 2017-03-02 14:52 | PN ---
Progress Note (short form) - Note Progress Note: Seen in follow up. Shoulder pain improving. No other complaints. On exam: General: Looks well, in bed. Extremities: No pallor, no icterus. right shoulder: swollen, tender to touch. No erythema noted Chest:breathing comfortably, Abdomen: Non-distended. Neuro: Alert, oriented, non-focal. Last Vital Signs Temp Pulse Resp BP Pulse Ox 99.2 F 94 H 16 127/66 95 03/02/17 08:43 03/02/17 08:43 03/02/17 08:43 03/02/17 08:43 03/02/17 09:00 CBC, BMP 03/02/17 06:00 03/02/17 06:00 Current Medications Generic Name Dose Route Start Last Admin Trade Name Freq PRN Reason Stop Dose Admin Allopurinol 100 mg 02/18/17 11:00 03/02/17 10:11 Zyloprim - PO 100 mg DAILY [facility] Administration Amlodipine Besylate 5 mg 02/18/17 10:00 03/02/17 10:12 Norvasc - PO 5 mg DAILY [facility] Administration Docusate Sodium 100 mg 02/17/17 22:00 03/02/17 10:12 Colace - PO Not Given BID [facility] Enoxaparin Sodium 40 mg 02/25/17 12:45 03/02/17 11:02 Lovenox - SQ 40 mg DAILY [facility] Administration Ceftriaxone Sodium 2 gm/ 100 mls @ 200 mls/hr 02/22/17 15:00 03/02/17 10:12 Dextrose IVPB 200 mls/hr DAILY [facility] Administration Lactobacillus Acidophilus 1 tab 02/18/17 10:00 03/02/17 10:11 Bacid - PO 1 tab DAILY [facility] Administration Methyl Salicylate 1 applic 02/22/17 10:00 03/02/17 10:13 Hilario-Sheppard - TP 1 applic BID [facility] Administration Metoprolol Succinate 50 mg 02/18/17 10:57 03/02/17 10:11 Toprol Xl - PO 50 mg DAILY [facility] Administration Ondansetron HCl 4 mg 02/17/17 15:03 Zofran Injection IVPB Q6H PRN NAUSEA Oxycodone HCl 10 mg 02/19/17 13:37 03/02/17 10:30 Roxicodone - PO 10 mg Q4H PRN Administration PAIN Polyethylene Glycol 17 gm 02/18/17 10:00 03/02/17 10:12 Miralax (For Daily Use) - PO 17 gm DAILY [facility] Administration Zolpidem Tartrate 5 mg 02/20/17 21:51 02/26/17 22:12 Ambien - PO 5 mg HS PRN Administration INSOMNIA Assessment/Plan: Suspected septic arthritis shoulder. Acute significant thrombocytosis - not present on admission. Reactive. Observe for now - would expect resolution of thrombocytosis with resolution of shoulder condition. ID and Ortho f/u Will follow.
[2017-03-02] MEDS ORDERED: COLCHICINE 0.6 MG TABLET (FP) PO ONE (17:43)
--- NOTE | 2017-03-02 17:43 | PN ---
Progress Note (short form) - Note Progress Note: Renal follow up for ALBER vs CKD Pt seen and examined at the bedside awake and alert complains of pain in the right foot (gout pain) shoulder is stiff no fevers, chills Vital Signs Temperature 100.2 F H 03/02/17 17:19 Pulse Rate 102 H 03/02/17 17:19 Respiratory Rate 20 03/02/17 17:19 Blood Pressure 138/62 03/02/17 17:19 O2 Sat by Pulse Oximetry (%) 95 03/02/17 09:00 Intake & Output 02/27/17 02/28/17 03/01/17 03/02/17 23:59 23:59 23:59 23:59 Intake Total 950 955 9923 750 Balance 061 995 2167 750 Gen: NAD CVS: RRR Lungs: CTA Abd: soft NT/ND Ext: no edema CBC, BMP 03/02/17 06:00 03/02/17 06:00 Laboratory Tests 03/02/17 06:00 Calcium 9.1 Phosphorus 4.3 Magnesium 2.3 Current Medications Allopurinol (Zyloprim -) 100 mg PO DAILY [facility] Last Admin: 03/02/17 10:11 Dose: 100 mg Amlodipine Besylate (Norvasc -) 5 mg PO DAILY [facility] Last Admin: 03/02/17 10:12 Dose: 5 mg Docusate Sodium (Colace -) 100 mg PO BID [facility] Last Admin: 03/02/17 10:12 Dose: Not Given Enoxaparin Sodium (Lovenox -) 40 mg SQ DAILY [facility] Last Admin: 03/02/17 11:02 Dose: 40 mg Ceftriaxone Sodium 2 gm/ (Dextrose) 100 mls @ 200 mls/hr IVPB DAILY [facility] Last Admin: 03/02/17 10:12 Dose: 200 mls/hr Lactobacillus Acidophilus (Bacid -) 1 tab PO DAILY [facility] Last Admin: 03/02/17 10:11 Dose: 1 tab Methyl Salicylate (Hilario-Sheppard -) 1 applic TP BID [facility] Last Admin: 03/02/17 10:13 Dose: 1 applic Metoprolol Succinate (Toprol Xl -) 50 mg PO DAILY [facility] Last Admin: 03/02/17 10:11 Dose: 50 mg Ondansetron HCl (Zofran Injection) 4 mg IVPB Q6H PRN PRN Reason: NAUSEA Oxycodone HCl (Roxicodone -) 10 mg PO Q4H PRN PRN Reason: PAIN Last Admin: 03/02/17 10:30 Dose: 10 mg Polyethylene Glycol (Miralax (For Daily Use) -) 17 gm PO DAILY [facility] Last Admin: 03/02/17 10:12 Dose: 17 gm Zolpidem Tartrate (Ambien -) 5 mg PO HS PRN PRN Reason: INSOMNIA Last Admin: 02/26/17 22:12 Dose: 5 mg A/P 71 year old gentleman with PMhx of HTN, Gout, CAD s/p PCI and stenting, CKD ( unknown baseline Cr), 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 #Acute on Chronic Renal Insufficiency with hyperkalemia Renal function stable spoke to pt about importance of reducing high potassium foods (i.e. milk) he agreed to decrease milk intake to 2 small cartons daily Trend Renal function and K daily would not give kayexalate at this time #Joint pain/Joint effusion/Septic Joint s/p MRI, official report pending ID and ortho follow up #Suspected Gout flare in foot Give Colchicine PO x 1 and then continue daily Edward Haddad DO Problem List - Problems (1) ALBER (acute kidney injury) Code(s): N17.9 - ACUTE KIDNEY FAILURE, UNSPECIFIED (2) CKD (chronic kidney disease) Code(s): N18.9 - CHRONIC KIDNEY DISEASE, UNSPECIFIED Qualifiers: Chronic kidney disease stage: stage 3 (moderate) Qualified Code(s): N18.3 - Chronic kidney disease, stage 3 (moderate) (3) Elevated liver enzymes Code(s): R74.8 - ABNORMAL LEVELS OF OTHER SERUM ENZYMES (4) Septic joint of right shoulder region Code(s): M00.9 - PYOGENIC ARTHRITIS, UNSPECIFIED (5) Abdominal pain Code(s): R10.9 - UNSPECIFIED ABDOMINAL PAIN (6) Azotemia Code(s): R79.89 - OTHER SPECIFIED ABNORMAL FINDINGS OF BLOOD CHEMISTRY
[2017-03-02] MEDS: ACETAMINOPHEN 325 MG TABLET (FP) PO PRN (20:54)
[2017-03-03 07:12] LABS: EOSINOPHIL 0.3 % (0-4.5); MCH 28.2 pg (25.7-33.7); MCHC 33.3 g/dl (32.0-35.9); MEAN CELL VOLUME 84.7 fl (80-96); MEAN PLT VOLUME 7.8 fl (7.5-11.1); NEUTROPHILS 70.4 % (42.8-82.8); PLATELET COUNT 947 K/MM3 (134-434); RDW 14.5 % (11.9-15.9); WHITE BLOOD COUNT 8.1 K/mm3 (4.0-10.0)
[2017-03-03 07:36] LABS: ANION GAP 10 (8-16); CALCIUM 8.6 mg/dL (8.5-10.1); CO2 27 mmol/L (21-32); CREATININE 1.4 mg/dL (0.7-1.3); GLUCOSE,RANDOM 99 mg/dL (74-106); MAGNESIUM 2.4 mg/dL (1.8-2.4); PHOSPHOROUS 4.3 mg/dL (2.5-4.9)
[2017-03-03] MEDS ORDERED: PT OWN MED DRAWER 7, Y5N ONE (09:25)
[2017-03-03] MEDS ORDERED: DEXTROSE 5%-WATER 100 ML IVPB ONE (09:26)
[2017-03-03] MEDS: oxyCODONE HCL 5 MG TABLET PO PRN ×3 (09:35→23:14)
[2017-03-03] MEDS: ALLOPURINOL 100 MG TABLET (FP) PO SCH (09:35)
[2017-03-03] MEDS: COLCHICINE 0.6 MG TABLET (FP) PO SCH (09:35)
[2017-03-03] MEDS: LACTOBACILLUS ACIDOPHILUS 1 EACH TAB (FP) PO SCH (09:35)
[2017-03-03] MEDS: METOPROLOL SUCCINATE 50 MG TAB.SR.24H (FP) PO SCH (09:35)
[2017-03-03] MEDS: amLODIPine BESYLATE 5 MG TABLET (FP) PO SCH (09:35)
[2017-03-03] MEDS: DOCUSATE SODIUM 100 MG CAPSULE (FP) PO SCH ×2 (09:36→21:26)
[2017-03-03] MEDS: CEFTRIAXONE 2 GM in DEXTROSE 5%-WATER 100 ML IVPB SCH (09:36)
[2017-03-03] MEDS: POLYETHYLENE GLYCOL 3350 119 GM BTL PO SCH (09:36)
[2017-03-03] MEDS: METHYL SALICYLATE/MENTHOL OINT 30 GM TUBE TP SCH ×2 (09:37→21:28)
[2017-03-03 10:52] LABS: URIC ACID 6.3 mg/dL (2.6-7.2)
[2017-03-03] MEDS: ENOXAPARIN NA (PORCINE) 40 MG/0.4 ML DISP.SYRIN SQ SCH (10:54)
--- NOTE | 2017-03-03 12:29 | PN ---
Progress Note, Physician History of Present Illness: stable no new issues patient has swelling on nthe rt ankle painful - Current Medication List Current Medications: Active Medications Acetaminophen (Tylenol -) 650 mg PO Q4H PRN PRN Reason: FEVER Last Admin: 03/02/17 20:54 Dose: 650 mg Allopurinol (Zyloprim -) 100 mg PO DAILY [facility] Last Admin: 03/03/17 09:35 Dose: 100 mg Amlodipine Besylate (Norvasc -) 5 mg PO DAILY [facility] Last Admin: 03/03/17 09:35 Dose: 5 mg Colchicine (Colcrys -) 0.6 mg PO DAILY [facility] Last Admin: 03/03/17 09:35 Dose: 0.6 mg Docusate Sodium (Colace -) 100 mg PO BID [facility] Last Admin: 03/03/17 09:36 Dose: 100 mg Enoxaparin Sodium (Lovenox -) 40 mg SQ DAILY [facility] Last Admin: 03/03/17 10:54 Dose: 40 mg Ceftriaxone Sodium 2 gm/ (Dextrose) 100 mls @ 200 mls/hr IVPB DAILY [facility] Last Admin: 03/03/17 09:36 Dose: 200 mls/hr Lactobacillus Acidophilus (Bacid -) 1 tab PO DAILY [facility] Last Admin: 03/03/17 09:35 Dose: 1 tab Methyl Salicylate (Hilario-Sheppard -) 1 applic TP BID [facility] Last Admin: 03/03/17 09:37 Dose: 1 applic Metoprolol Succinate (Toprol Xl -) 50 mg PO DAILY [facility] Last Admin: 03/03/17 09:35 Dose: 50 mg Ondansetron HCl (Zofran Injection) 4 mg IVPB Q6H PRN PRN Reason: NAUSEA Oxycodone HCl (Roxicodone -) 10 mg PO Q4H PRN PRN Reason: PAIN Last Admin: 03/03/17 09:35 Dose: 10 mg Polyethylene Glycol (Miralax (For Daily Use) -) 17 gm PO DAILY [facility] Last Admin: 03/03/17 09:36 Dose: 17 gm Zolpidem Tartrate (Ambien -) 5 mg PO HS PRN PRN Reason: INSOMNIA Last Admin: 02/26/17 22:12 Dose: 5 mg - Objective Vital Signs: Vital Signs Temperature 99.9 F H 03/03/17 09:00 Pulse Rate 107 H 03/03/17 09:00 Respiratory Rate 18 03/03/17 09:00 Blood Pressure 127/59 03/03/17 09:00 O2 Sat by Pulse Oximetry (%) 95 03/02/17 21:00 Constitutional: Yes: No Distress, Calm Cardiovascular: Yes: Regular Rate and Rhythm Respiratory: Yes: Regular, CTA Bilaterally Gastrointestinal: Yes: Normal Bowel Sounds, Soft Musculoskeletal: Yes: Other Extremities: Yes: Other (rt ankle swelling,rt foot swelling) Integumentary: Yes: Erythema Neurological: Yes: Alert, Oriented Psychiatric: Yes: Alert, Oriented Labs: CBC, BMP 03/03/17 06:00 03/03/17 06:00 Assessment/Plan Problem List - Problems (1) Cellulitis of multiple sites of upper limb and shoulder Code(s): L03.119 - CELLULITIS OF UNSPECIFIED PART OF LIMB (2) ALBER (acute kidney injury) Code(s): N17.9 - ACUTE KIDNEY FAILURE, UNSPECIFIED (3) CKD (chronic kidney disease) Code(s): N18.9 - CHRONIC KIDNEY DISEASE, UNSPECIFIED Qualifiers: Chronic kidney disease stage: stage 3 (moderate) Qualified Code(s): N18.3 - Chronic kidney disease, stage 3 (moderate) (4) Elevated liver enzymes Code(s): R74.8 - ABNORMAL LEVELS OF OTHER SERUM ENZYMES (5) CAD (coronary artery disease) Code(s): I25.10 - ATHSCL HEART DISEASE OF [place] CORONARY ARTERY W/O ANG PCTRS (6) Hypertension Code(s): I10 - ESSENTIAL (PRIMARY) HYPERTENSION (7) Gout Code(s): M10.9 - GOUT, UNSPECIFIED ortho note reviewed plan continue abx await for final cx reports patient probably has gout monitor the swelling
[2017-03-03] MEDS ORDERED: LACTULOSE 20 GM/30 ML UDC (FOR ORAL USE ONLY) PO PRN (14:30)
--- NOTE | 2017-03-03 15:22 | PN ---
Progress Note, Physician Chief Complaint: Mr Jones complains of gout in his right foot. Still with shoulder pain. No cp, sob, n/v. - Current Medication List Current Medications: Active Medications Acetaminophen (Tylenol -) 650 mg PO Q4H PRN PRN Reason: FEVER Last Admin: 03/02/17 20:54 Dose: 650 mg Allopurinol (Zyloprim -) 100 mg PO DAILY [facility] Last Admin: 03/03/17 09:35 Dose: 100 mg Amlodipine Besylate (Norvasc -) 5 mg PO DAILY [facility] Last Admin: 03/03/17 09:35 Dose: 5 mg Colchicine (Colcrys -) 0.6 mg PO DAILY [facility] Last Admin: 03/03/17 09:35 Dose: 0.6 mg Docusate Sodium (Colace -) 100 mg PO BID [facility] Last Admin: 03/03/17 09:36 Dose: 100 mg Enoxaparin Sodium (Lovenox -) 40 mg SQ DAILY [facility] Last Admin: 03/03/17 10:54 Dose: 40 mg Ceftriaxone Sodium 2 gm/ (Dextrose) 100 mls @ 200 mls/hr IVPB DAILY [facility] Last Admin: 03/03/17 09:36 Dose: 200 mls/hr Lactobacillus Acidophilus (Bacid -) 1 tab PO DAILY [facility] Last Admin: 03/03/17 09:35 Dose: 1 tab Lactulose (Cephulac (Oral Use)) 20 gm PO TID PRN PRN Reason: CONSTIPATION Methyl Salicylate (Hilario-Sheppard -) 1 applic TP BID [facility] Last Admin: 03/03/17 09:37 Dose: 1 applic Metoprolol Succinate (Toprol Xl -) 50 mg PO DAILY [facility] Last Admin: 03/03/17 09:35 Dose: 50 mg Ondansetron HCl (Zofran Injection) 4 mg IVPB Q6H PRN PRN Reason: NAUSEA Oxycodone HCl (Roxicodone -) 10 mg PO Q4H PRN PRN Reason: PAIN Last Admin: 03/03/17 09:35 Dose: 10 mg Polyethylene Glycol (Miralax (For Daily Use) -) 17 gm PO DAILY [facility] Last Admin: 03/03/17 09:36 Dose: 17 gm Zolpidem Tartrate (Ambien -) 5 mg PO HS PRN PRN Reason: INSOMNIA Last Admin: 02/26/17 22:12 Dose: 5 mg - Objective Vital Signs: Vital Signs Temperature 37.7 C H 03/03/17 09:00 Pulse Rate 107 H 03/03/17 09:00 Respiratory Rate 18 03/03/17 09:00 Blood Pressure 127/59 03/03/17 09:00 O2 Sat by Pulse Oximetry (%) 95 03/03/17 09:00 Constitutional: Yes: Well Nourished, No Distress, Calm Cardiovascular: Yes: Regular Rate and Rhythm. No: Gallop, Murmur, Rub Respiratory: Yes: Regular, CTA Bilaterally. No: Rales, Rhonchi, Wheezes Gastrointestinal: Yes: Normal Bowel Sounds, Soft. No: Distention, Tenderness Extremities: Yes: Erythema (R foot) Edema: No Labs: CBC, BMP 03/03/17 06:00 03/03/17 06:00 Problem List - Problems (1) Septic joint of right shoulder region Code(s): M00.9 - PYOGENIC ARTHRITIS, UNSPECIFIED (2) Cellulitis of multiple sites of upper limb and shoulder Code(s): L03.119 - CELLULITIS OF UNSPECIFIED PART OF LIMB (3) ALBER (acute kidney injury) Code(s): N17.9 - ACUTE KIDNEY FAILURE, UNSPECIFIED (4) CKD (chronic kidney disease) Code(s): N18.9 - CHRONIC KIDNEY DISEASE, UNSPECIFIED Qualifiers: Chronic kidney disease stage: stage 3 (moderate) Qualified Code(s): N18.3 - Chronic kidney disease, stage 3 (moderate) (5) Elevated liver enzymes Code(s): R74.8 - ABNORMAL LEVELS OF OTHER SERUM ENZYMES (6) CAD (coronary artery disease) Code(s): I25.10 - ATHSCL HEART DISEASE OF [place] CORONARY ARTERY W/O ANG PCTRS (7) Hypertension Code(s): I10 - ESSENTIAL (PRIMARY) HYPERTENSION (8) Gout Code(s): M10.9 - GOUT, UNSPECIFIED Assessment/Plan (1) Septic R shoulder joint with cellulitis Assessment/Plan: -patient with fever last night -urine and blood cultures sent -continue rocephin per ID -repeat aspiration still NGTD Code(s): L03.119 - CELLULITIS OF UNSPECIFIED PART OF LIMB (2) ALBER (acute kidney injury) Assessment/Plan: -back at baseline Code(s): N17.9 - ACUTE KIDNEY FAILURE, UNSPECIFIED (3) CKD (chronic kidney disease) Assessment/Plan: -appreciate nephrology assistance Code(s): N18.9 - CHRONIC KIDNEY DISEASE, UNSPECIFIED Qualifiers: Chronic kidney disease stage: stage 3 (moderate) Qualified Code(s): N18.3 - Chronic kidney disease, stage 3 (moderate) (4) Elevated liver enzymes Assessment/Plan: -appreciate GI assistance -improved Code(s): R74.8 - ABNORMAL LEVELS OF OTHER SERUM ENZYMES (5) CAD (coronary artery disease) Assessment/Plan: -continue home regimen Code(s): I25.10 - ATHSCL HEART DISEASE OF [place] CORONARY ARTERY W/O ANG PCTRS (6) Hypertension Assessment/Plan: -continue norvasc -increased toprol xl -lisinopril held secondary to renal function -well controlled on current regimen Code(s): I10 - ESSENTIAL (PRIMARY) HYPERTENSION (7) Gout Assessment/Plan: -continue allopurinol -case d/w nephrology -continue low dose colchicine -holding on steroids secondary to infected joint Code(s): M10.9 - GOUT, UNSPECIFIED (8) Hyperkalemia -case d/w nephrology -improved (9) Elevated platelets -hematology following -improving -secondary to sepsis/infection
--- NOTE | 2017-03-03 19:09 | PN ---
Progress Note (short form) - Note Progress Note: PAtient seen and examined Last Vital Signs Temp Pulse Resp BP Pulse Ox 100.6 F H 94 H 20 126/59 95 03/03/17 17:04 03/03/17 17:04 03/03/17 17:04 03/03/17 17:04 03/03/17 09:00 Cor: RSR, No murmurs, No gallops Lungs: Clear to P&A Abd: Soft, Normal bowel sounds, No organomegaly Ext:No significant edema Skin: No rashes, Integument intact Abnormal Lab Results 03/03/17 03/03/17 06:00 06:00 RBC 2.89 L Hgb 8.1 L Hct 24.5 L Plt Count 947 H Monocytes % 15.2 H BUN 28 H Creatinine 1.4 H Home Medication List Medication Instructions Recorded Confirmed Type Aspirin Coated [Ecotrin -] 81 mg PO DAILY 01/20/13 02/17/17 History Lisinopril [Prinivil -] 20 mg PO DAILY 01/20/13 02/17/17 History Metoprolol Succinate [Toprol XL -] 25 mg PO DAILY 01/20/13 02/17/17 History Amlodipine Besylate [Norvasc -] 5 mg PO DAILY 02/27/14 02/17/17 History Zolpidem Tartrate [Ambien] 5 mg PO HS PRN 03/01/14 02/17/17 History Active Medications Generic Name Dose Route Start Last Admin Trade Name Freq PRN Reason Stop Dose Admin Acetaminophen 650 mg 03/02/17 20:48 03/02/17 20:54 Tylenol - PO 650 mg Q4H PRN Administration FEVER Allopurinol 100 mg 02/18/17 11:00 03/03/17 09:35 Zyloprim - PO 100 mg DAILY [facility] Administration Amlodipine Besylate 5 mg 02/18/17 10:00 03/03/17 09:35 Norvasc - PO 5 mg DAILY [facility] Administration Colchicine 0.6 mg 03/03/17 10:00 03/03/17 09:35 Colcrys - PO 0.6 mg DAILY [facility] Administration Docusate Sodium 100 mg 02/17/17 22:00 03/03/17 09:36 Colace - PO 100 mg BID [facility] Administration Enoxaparin Sodium 40 mg 02/25/17 12:45 03/03/17 10:54 Lovenox - SQ 40 mg DAILY [facility] Administration Ceftriaxone Sodium 2 gm/ 100 mls @ 200 mls/hr 02/22/17 15:00 03/03/17 09:36 Dextrose IVPB 200 mls/hr DAILY [facility] Administration Lactobacillus Acidophilus 1 tab 02/18/17 10:00 03/03/17 09:35 Bacid - PO 1 tab DAILY [facility] Administration Lactulose 20 gm 03/03/17 14:30 Cephulac (Oral Use) PO TID PRN CONSTIPATION Methyl Salicylate 1 applic 02/22/17 10:00 03/03/17 09:37 Hilario-Sheppard - TP 1 applic BID [facility] Administration Metoprolol Succinate 50 mg 02/18/17 10:57 03/03/17 09:35 Toprol Xl - PO 50 mg DAILY [facility] Administration Ondansetron HCl 4 mg 02/17/17 15:03 Zofran Injection IVPB Q6H PRN NAUSEA Oxycodone HCl 10 mg 02/19/17 13:37 03/03/17 18:43 Roxicodone - PO 10 mg Q4H PRN Administration PAIN Polyethylene Glycol 17 gm 02/18/17 10:00 03/03/17 09:36 Miralax (For Daily Use) - PO 17 gm DAILY [facility] Administration Zolpidem Tartrate 5 mg 02/20/17 21:51 02/26/17 22:12 Ambien - PO 5 mg HS PRN Administration INSOMNIA A/P 72 y/o patient with suspected septic arthritis shoulder. Acute significant thrombocytosis - not present on admission. Reactive. Observe for now - would expect resolution of thrombocytosis with resolution of shoulder condition. RLE erythema/swelling--consider duplex ID/ortho f/u regarding ongoing fevers discussed with primary/ID teams
[2017-03-04] MEDS ORDERED: PT OWN MED DRAWER 7, Y5N ONE ×2 (01:30→01:34)
[2017-03-04] MEDS: ACETAMINOPHEN 325 MG TABLET (FP) PO PRN (02:01)
[2017-03-04 07:54] LABS: BASOPHIL 1.2 % (0-2.0); EOSINOPHIL 0.3 % (0-4.5); MCH 28.4 pg (25.7-33.7); MCHC 33.3 g/dl (32.0-35.9); MEAN CELL VOLUME 85.3 fl (80-96); MEAN PLT VOLUME 8.2 fl (7.5-11.1); NEUTROPHILS 72.5 % (42.8-82.8); PLATELET COUNT 941 K/MM3 (134-434); RDW 15.3 % (11.9-15.9); WHITE BLOOD COUNT 9.3 K/mm3 (4.0-10.0)
[2017-03-04 08:24] LABS: ANION GAP 11 (8-16); CALCIUM 8.6 mg/dL (8.5-10.1); CO2 28 mmol/L (21-32); CREATININE 1.7 mg/dL (0.7-1.3); GLUCOSE,RANDOM 93 mg/dL (74-106); MAGNESIUM 2.6 mg/dL (1.8-2.4); PHOSPHOROUS 4.2 mg/dL (2.5-4.9)
[2017-03-04] MEDS ORDERED: DEXTROSE 5%-WATER 100 ML IVPB ONE (10:27)
[2017-03-04] MEDS: COLCHICINE 0.6 MG TABLET (FP) PO SCH (10:30)
[2017-03-04] MEDS: oxyCODONE HCL 5 MG TABLET PO PRN ×3 (10:30→22:26)
[2017-03-04] MEDS: ENOXAPARIN NA (PORCINE) 40 MG/0.4 ML DISP.SYRIN SQ SCH (10:30)
[2017-03-04] MEDS: ALLOPURINOL 100 MG TABLET (FP) PO SCH (10:30)
[2017-03-04] MEDS: POLYETHYLENE GLYCOL 3350 119 GM BTL PO SCH (10:30)
[2017-03-04] MEDS: LACTOBACILLUS ACIDOPHILUS 1 EACH TAB (FP) PO SCH (10:30)
[2017-03-04] MEDS: METOPROLOL SUCCINATE 50 MG TAB.SR.24H (FP) PO SCH (10:30)
[2017-03-04] MEDS: CEFTRIAXONE 2 GM in DEXTROSE 5%-WATER 100 ML IVPB SCH (10:30)
[2017-03-04] MEDS: DOCUSATE SODIUM 100 MG CAPSULE (FP) PO SCH ×2 (10:31→21:36)
[2017-03-04] MEDS: METHYL SALICYLATE/MENTHOL OINT 30 GM TUBE TP SCH ×2 (10:31→21:35)
[2017-03-04] MEDS: amLODIPine BESYLATE 5 MG TABLET (FP) PO SCH (10:31)
--- NOTE | 2017-03-04 14:13 | PN ---
Progress Note, Physician History of Present Illness: doing well still no movement of the arm freely foot swelling still present painful ankle swelling - Current Medication List Current Medications: Active Medications Acetaminophen (Tylenol -) 650 mg PO Q4H PRN PRN Reason: FEVER Last Admin: 03/04/17 02:01 Dose: 650 mg Allopurinol (Zyloprim -) 100 mg PO DAILY [facility] Last Admin: 03/04/17 10:30 Dose: 100 mg Amlodipine Besylate (Norvasc -) 5 mg PO DAILY [facility] Last Admin: 03/04/17 10:31 Dose: 5 mg Colchicine (Colcrys -) 0.6 mg PO DAILY [facility] Last Admin: 03/04/17 10:30 Dose: 0.6 mg Docusate Sodium (Colace -) 100 mg PO BID [facility] Last Admin: 03/04/17 10:31 Dose: 100 mg Enoxaparin Sodium (Lovenox -) 40 mg SQ DAILY [facility] Last Admin: 03/04/17 10:30 Dose: 40 mg Ceftriaxone Sodium 2 gm/ (Dextrose) 100 mls @ 200 mls/hr IVPB DAILY [facility] Last Admin: 03/04/17 10:30 Dose: 200 mls/hr Lactobacillus Acidophilus (Bacid -) 1 tab PO DAILY [facility] Last Admin: 03/04/17 10:30 Dose: 1 tab Lactulose (Cephulac (Oral Use)) 20 gm PO TID PRN PRN Reason: CONSTIPATION Methyl Salicylate (Hilario-Sheppard -) 1 applic TP BID [facility] Last Admin: 03/04/17 10:31 Dose: 1 applic Metoprolol Succinate (Toprol Xl -) 50 mg PO DAILY [facility] Last Admin: 03/04/17 10:30 Dose: 50 mg Ondansetron HCl (Zofran Injection) 4 mg IVPB Q6H PRN PRN Reason: NAUSEA Oxycodone HCl (Roxicodone -) 10 mg PO Q4H PRN PRN Reason: PAIN Last Admin: 03/04/17 10:30 Dose: 10 mg Polyethylene Glycol (Miralax (For Daily Use) -) 17 gm PO DAILY [facility] Last Admin: 03/04/17 10:30 Dose: 17 gm Zolpidem Tartrate (Ambien -) 5 mg PO HS PRN PRN Reason: INSOMNIA Last Admin: 02/26/17 22:12 Dose: 5 mg - Objective Vital Signs: Vital Signs Temperature 98.8 F 03/04/17 08:57 Pulse Rate 104 H 03/04/17 08:57 Respiratory Rate 18 03/04/17 08:57 Blood Pressure 123/61 03/04/17 08:57 O2 Sat by Pulse Oximetry (%) 92 L 03/03/17 21:00 Constitutional: Yes: No Distress, Calm Neck: Yes: Supple Cardiovascular: Yes: Regular Rate and Rhythm Respiratory: Yes: Regular, CTA Bilaterally Gastrointestinal: Yes: Normal Bowel Sounds, Soft Musculoskeletal: Yes: Other Extremities: Yes: Other Integumentary: Yes: Erythema Neurological: Yes: Alert, Oriented Psychiatric: Yes: Alert, Oriented Labs: CBC, BMP 03/04/17 06:00 03/04/17 06:00 Assessment/Plan Problem List - Problems (1) Cellulitis of multiple sites of upper limb and shoulder Code(s): L03.119 - CELLULITIS OF UNSPECIFIED PART OF LIMB (2) ALBER (acute kidney injury) Code(s): N17.9 - ACUTE KIDNEY FAILURE, UNSPECIFIED (3) CKD (chronic kidney disease) Code(s): N18.9 - CHRONIC KIDNEY DISEASE, UNSPECIFIED Qualifiers: Chronic kidney disease stage: stage 3 (moderate) Qualified Code(s): N18.3 - Chronic kidney disease, stage 3 (moderate) (4) Elevated liver enzymes Code(s): R74.8 - ABNORMAL LEVELS OF OTHER SERUM ENZYMES (5) CAD (coronary artery disease) Code(s): I25.10 - ATHSCL HEART DISEASE OF [place] CORONARY ARTERY W/O ANG PCTRS (6) Hypertension Code(s): I10 - ESSENTIAL (PRIMARY) HYPERTENSION (7) Gout Code(s): M10.9 - GOUT, UNSPECIFIED ortho note reviewed plan continue abx await for final cx reports patient probably has gout monitor the swelling if patient does not improve xray of the leg
--- NOTE | 2017-03-04 15:58 | PN ---
Progress Note, Physician Chief Complaint: Mr Jones complains of pain and redness in his right foot, unchanged. No cp, sob, n/v. Still with pain in his shoulder - Current Medication List Current Medications: Active Medications Acetaminophen (Tylenol -) 650 mg PO Q4H PRN PRN Reason: FEVER Last Admin: 03/04/17 02:01 Dose: 650 mg Allopurinol (Zyloprim -) 100 mg PO DAILY [facility] Last Admin: 03/04/17 10:30 Dose: 100 mg Amlodipine Besylate (Norvasc -) 5 mg PO DAILY [facility] Last Admin: 03/04/17 10:31 Dose: 5 mg Colchicine (Colcrys -) 0.6 mg PO DAILY [facility] Last Admin: 03/04/17 10:30 Dose: 0.6 mg Docusate Sodium (Colace -) 100 mg PO BID [facility] Last Admin: 03/04/17 10:31 Dose: 100 mg Enoxaparin Sodium (Lovenox -) 40 mg SQ DAILY [facility] Last Admin: 03/04/17 10:30 Dose: 40 mg Ceftriaxone Sodium 2 gm/ (Dextrose) 100 mls @ 200 mls/hr IVPB DAILY [facility] Last Admin: 03/04/17 10:30 Dose: 200 mls/hr Lactobacillus Acidophilus (Bacid -) 1 tab PO DAILY [facility] Last Admin: 03/04/17 10:30 Dose: 1 tab Lactulose (Cephulac (Oral Use)) 20 gm PO TID PRN PRN Reason: CONSTIPATION Methyl Salicylate (Hilario-Sheppard -) 1 applic TP BID [facility] Last Admin: 03/04/17 10:31 Dose: 1 applic Metoprolol Succinate (Toprol Xl -) 50 mg PO DAILY [facility] Last Admin: 03/04/17 10:30 Dose: 50 mg Ondansetron HCl (Zofran Injection) 4 mg IVPB Q6H PRN PRN Reason: NAUSEA Oxycodone HCl (Roxicodone -) 10 mg PO Q4H PRN PRN Reason: PAIN Last Admin: 03/04/17 10:30 Dose: 10 mg Polyethylene Glycol (Miralax (For Daily Use) -) 17 gm PO DAILY [facility] Last Admin: 03/04/17 10:30 Dose: 17 gm Zolpidem Tartrate (Ambien -) 5 mg PO HS PRN PRN Reason: INSOMNIA Last Admin: 02/26/17 22:12 Dose: 5 mg - Objective Vital Signs: Vital Signs Temperature 37.1 C 03/04/17 08:57 Pulse Rate 104 H 03/04/17 08:57 Respiratory Rate 18 03/04/17 08:57 Blood Pressure 123/61 03/04/17 08:57 O2 Sat by Pulse Oximetry (%) 97 03/04/17 09:00 Constitutional: Yes: Well Nourished, No Distress, Calm Cardiovascular: Yes: Regular Rate and Rhythm. No: Gallop, Murmur, Rub Respiratory: Yes: Regular, CTA Bilaterally. No: Rales, Rhonchi, Wheezes Gastrointestinal: Yes: Normal Bowel Sounds, Soft. No: Distention, Tenderness Extremities: Yes: Erythema Edema: Yes Edema: RLE: 1+ Labs: CBC, BMP 03/04/17 06:00 03/04/17 06:00 Problem List - Problems (1) Septic joint of right shoulder region Code(s): M00.9 - PYOGENIC ARTHRITIS, UNSPECIFIED (2) Cellulitis of multiple sites of upper limb and shoulder Code(s): L03.119 - CELLULITIS OF UNSPECIFIED PART OF LIMB (3) ALBER (acute kidney injury) Code(s): N17.9 - ACUTE KIDNEY FAILURE, UNSPECIFIED (4) CKD (chronic kidney disease) Code(s): N18.9 - CHRONIC KIDNEY DISEASE, UNSPECIFIED Qualifiers: Chronic kidney disease stage: stage 3 (moderate) Qualified Code(s): N18.3 - Chronic kidney disease, stage 3 (moderate) (5) Elevated liver enzymes Code(s): R74.8 - ABNORMAL LEVELS OF OTHER SERUM ENZYMES (6) CAD (coronary artery disease) Code(s): I25.10 - ATHSCL HEART DISEASE OF [place] CORONARY ARTERY W/O ANG PCTRS (7) Hypertension Code(s): I10 - ESSENTIAL (PRIMARY) HYPERTENSION (8) Gout Code(s): M10.9 - GOUT, UNSPECIFIED Assessment/Plan (1) Septic R shoulder joint with cellulitis Assessment/Plan: -fever currently has not recurred -continue rocephin -? if needs further aspiration of joint Code(s): L03.119 - CELLULITIS OF UNSPECIFIED PART OF LIMB (2) ALBER (acute kidney injury) Assessment/Plan: -back at baseline Code(s): N17.9 - ACUTE KIDNEY FAILURE, UNSPECIFIED (3) CKD (chronic kidney disease) Assessment/Plan: -appreciate nephrology assistance Code(s): N18.9 - CHRONIC KIDNEY DISEASE, UNSPECIFIED Qualifiers: Chronic kidney disease stage: stage 3 (moderate) Qualified Code(s): N18.3 - Chronic kidney disease, stage 3 (moderate) (4) Elevated liver enzymes Assessment/Plan: -appreciate GI assistance Code(s): R74.8 - ABNORMAL LEVELS OF OTHER SERUM ENZYMES (5) CAD (coronary artery disease) Assessment/Plan: -continue home regimen Code(s): I25.10 - ATHSCL HEART DISEASE OF [place] CORONARY ARTERY W/O ANG PCTRS (6) Hypertension Assessment/Plan: -continue norvasc -increased toprol xl -lisinopril held secondary to renal function -well controlled on current regimen Code(s): I10 - ESSENTIAL (PRIMARY) HYPERTENSION (7) Gout Assessment/Plan: -unclear if this is gout, expect some improvement while on colchicine -concerning for possible infection -blood cultures clear, so would not expect hematogenous spread to other joint -however if does not improve, agree with x-ray Code(s): M10.9 - GOUT, UNSPECIFIED (8) Hyperkalemia -case d/w nephrology -improved (9) Elevated platelets -hematology following -improving -secondary to sepsis/infection
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
--- NOTE | 2017-03-04 20:39 | PN ---
Progress Note (short form) - Note Progress Note: Renal follow up for ALBER vs CKD Pt seen and examined at the bedside earlier today continues to have stiffness in the shoulder pain in foot is slightly better febrile yesterday no sob, chest pain tolerating oral diet Vital Signs Temperature 99 F 03/04/17 17:10 Pulse Rate 91 H 03/04/17 17:10 Respiratory Rate 20 03/04/17 17:10 Blood Pressure 131/66 03/04/17 17:10 O2 Sat by Pulse Oximetry (%) 97 03/04/17 09:00 Intake & Output 03/01/17 03/02/17 03/03/17 03/04/17 23:59 23:59 23:59 23:59 Intake Total 1060 1350 1800 1300 Balance 1060 1350 1800 1300 Gen: NAD CVS: RRR Lungs: CTA Abd: soft NT/ND Ext: no edema CBC, BMP 03/04/17 06:00 03/04/17 06:00 A/P 71 year old gentleman with PMhx of HTN, Gout, CAD s/p PCI and stenting, CKD ( unknown baseline Cr), 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 #Acute on Chronic Renal Insufficiency with hyperkalemia Cr jett from 1.4 -> 1.5 likely to do hemodynamic changes in setting of fever appears evolemic, BP stable would just trend renal function for now avoid nsaids, IV contrast #Joint pain/Joint effusion/Septic Joint for 2nd MRI tomorrow Continue Abx as per ID #Suspected Gout flare in foot on reduced dose of allopurinol and colchicine Rheum consult noted Edward Haddad DO Problem List - Problems (1) ALBER (acute kidney injury) Code(s): N17.9 - ACUTE KIDNEY FAILURE, UNSPECIFIED (2) CKD (chronic kidney disease) Code(s): N18.9 - CHRONIC KIDNEY DISEASE, UNSPECIFIED Qualifiers: Chronic kidney disease stage: stage 3 (moderate) Qualified Code(s): N18.3 - Chronic kidney disease, stage 3 (moderate) (3) Elevated liver enzymes Code(s): R74.8 - ABNORMAL LEVELS OF OTHER SERUM ENZYMES (4) Septic joint of right shoulder region Code(s): M00.9 - PYOGENIC ARTHRITIS, UNSPECIFIED (5) Abdominal pain Code(s): R10.9 - UNSPECIFIED ABDOMINAL PAIN (6) Azotemia Code(s): R79.89 - OTHER SPECIFIED ABNORMAL FINDINGS OF BLOOD CHEMISTRY
[2017-03-04] MEDS: ZOLPIDEM TARTRATE 5 MG TABLET PO PRN (22:27)
[2017-03-05] MEDS: oxyCODONE HCL 5 MG TABLET PO PRN ×4 (02:01→23:18)
[2017-03-05] MEDS ORDERED: PT OWN MED DRAWER 7, Y5N ONE ×2 (06:43→10:18)
[2017-03-05 07:39] LABS: BASOPHIL 1.5 % (0-2.0); EOSINOPHIL 1.2 % (0-4.5); MCH 28.5 pg (25.7-33.7); MCHC 33.5 g/dl (32.0-35.9); MEAN CELL VOLUME 84.9 fl (80-96); NEUTROPHILS 63.3 % (42.8-82.8); PLATELET COUNT 899 K/MM3 (134-434); RDW 15.3 % (11.9-15.9); WHITE BLOOD COUNT 6.8 K/mm3 (4.0-10.0)
[2017-03-05 08:09] LABS: ANION GAP 10 (8-16); CALCIUM 8.7 mg/dL (8.5-10.1); CO2 29 mmol/L (21-32); GLUCOSE,RANDOM 83 mg/dL (74-106); MAGNESIUM 2.6 mg/dL (1.8-2.4)
[2017-03-05 08:10] LABS: CREATININE 1.5 mg/dL (0.7-1.3); PHOSPHOROUS 4.1 mg/dL (2.5-4.9)
[2017-03-05] MEDS ORDERED: DEXTROSE 5%-WATER 100 ML IVPB ONE (10:18)
[2017-03-05] MEDS: LACTOBACILLUS ACIDOPHILUS 1 EACH TAB (FP) PO SCH (10:21)
[2017-03-05] MEDS: DOCUSATE SODIUM 100 MG CAPSULE (FP) PO SCH ×2 (10:22→21:12)
[2017-03-05] MEDS: COLCHICINE 0.6 MG TABLET (FP) PO SCH (10:22)
[2017-03-05] MEDS: POLYETHYLENE GLYCOL 3350 119 GM BTL PO SCH (10:23)
[2017-03-05] MEDS: CEFTRIAXONE 2 GM in DEXTROSE 5%-WATER 100 ML IVPB SCH (10:24)
[2017-03-05] MEDS: METOPROLOL SUCCINATE 50 MG TAB.SR.24H (FP) PO SCH (10:24)
[2017-03-05] MEDS: amLODIPine BESYLATE 5 MG TABLET (FP) PO SCH (10:24)
[2017-03-05] MEDS: ALLOPURINOL 100 MG TABLET (FP) PO SCH (10:25)
[2017-03-05] MEDS: ENOXAPARIN NA (PORCINE) 40 MG/0.4 ML DISP.SYRIN SQ SCH (10:25)
[2017-03-05] MEDS: METHYL SALICYLATE/MENTHOL OINT 30 GM TUBE TP SCH ×2 (10:25→21:13)
--- NOTE | 2017-03-05 14:45 | PN ---
Progress Note (short form) - Note Progress Note: Renal follow up for ALBER vs CKD Pt seen and examined at the bedside earlier today continues to have shoulder stiffness and foot pain no fevers making good urine Vital Signs Temperature 98.4 F 03/05/17 14:23 Pulse Rate 89 03/05/17 14:23 Respiratory Rate 18 03/05/17 14:23 Blood Pressure 144/70 03/05/17 14:23 O2 Sat by Pulse Oximetry (%) 98 03/04/17 21:00 Intake & Output 03/02/17 03/03/17 03/04/17 03/05/17 23:59 23:59 23:59 23:59 Intake Total 1350 1800 1700 980 Balance 1350 1800 1700 980 Gen: NAD CVS: RRR Lungs: CTA Abd: soft NT/ND Ext: no edema CBC, BMP 03/05/17 06:30 03/05/17 06:30 Current Medications Acetaminophen (Tylenol -) 650 mg PO Q4H PRN PRN Reason: FEVER Last Admin: 03/04/17 02:01 Dose: 650 mg Allopurinol (Zyloprim -) 100 mg PO DAILY [facility] Last Admin: 03/05/17 10:25 Dose: 100 mg Amlodipine Besylate (Norvasc -) 5 mg PO DAILY [facility] Last Admin: 03/05/17 10:24 Dose: 5 mg Colchicine (Colcrys -) 0.6 mg PO DAILY [facility] Last Admin: 03/05/17 10:22 Dose: 0.6 mg Docusate Sodium (Colace -) 100 mg PO BID [facility] Last Admin: 03/05/17 10:22 Dose: 100 mg Enoxaparin Sodium (Lovenox -) 40 mg SQ DAILY [facility] Last Admin: 03/05/17 10:25 Dose: 40 mg Ceftriaxone Sodium 2 gm/ (Dextrose) 100 mls @ 200 mls/hr IVPB DAILY [facility] Last Admin: 03/05/17 10:24 Dose: 200 mls/hr Lactobacillus Acidophilus (Bacid -) 1 tab PO DAILY [facility] Last Admin: 03/05/17 10:21 Dose: 1 tab Lactulose (Cephulac (Oral Use)) 20 gm PO TID PRN PRN Reason: CONSTIPATION Methyl Salicylate (Hilario-Sheppard -) 1 applic TP BID [facility] Last Admin: 03/05/17 10:25 Dose: 1 applic Metoprolol Succinate (Toprol Xl -) 50 mg PO DAILY [facility] Last Admin: 03/05/17 10:24 Dose: 50 mg Ondansetron HCl (Zofran Injection) 4 mg IVPB Q6H PRN PRN Reason: NAUSEA Oxycodone HCl (Roxicodone -) 10 mg PO Q4H PRN PRN Reason: PAIN Last Admin: 03/05/17 06:20 Dose: 10 mg Polyethylene Glycol (Miralax (For Daily Use) -) 17 gm PO DAILY [facility] Last Admin: 03/05/17 10:23 Dose: 17 gm Zolpidem Tartrate (Ambien -) 5 mg PO HS PRN PRN Reason: INSOMNIA Last Admin: 03/04/17 22:27 Dose: 5 mg A/P 71 year old gentleman with PMhx of HTN, Gout, CAD s/p PCI and stenting, CKD ( unknown baseline Cr), 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 #Acute on Chronic Renal Insufficiency with hyperkalemia cr stable today, K is WNL continue oral intake as tolerated avoid nsaids and IV contrast trend BUN/Cr #Joint pain/Joint effusion/Septic Joint Bone scan today Ortho follow up #Suspected Gout flare in foot on reduced dose of allopurinol and colchicine Edward Haddad DO Problem List - Problems (1) ALBER (acute kidney injury) Code(s): N17.9 - ACUTE KIDNEY FAILURE, UNSPECIFIED (2) CKD (chronic kidney disease) Code(s): N18.9 - CHRONIC KIDNEY DISEASE, UNSPECIFIED Qualifiers: Chronic kidney disease stage: stage 3 (moderate) Qualified Code(s): N18.3 - Chronic kidney disease, stage 3 (moderate) (3) Elevated liver enzymes Code(s): R74.8 - ABNORMAL LEVELS OF OTHER SERUM ENZYMES (4) Septic joint of right shoulder region Code(s): M00.9 - PYOGENIC ARTHRITIS, UNSPECIFIED (5) Abdominal pain Code(s): R10.9 - UNSPECIFIED ABDOMINAL PAIN (6) Azotemia Code(s): R79.89 - OTHER SPECIFIED ABNORMAL FINDINGS OF BLOOD CHEMISTRY
--- NOTE | 2017-03-05 15:01 | PN ---
Progress Note, Physician Chief Complaint: Mr Jones complains of pain in his shoulder. No cp, sob, n/v. - Current Medication List Current Medications: Active Medications Acetaminophen (Tylenol -) 650 mg PO Q4H PRN PRN Reason: FEVER Last Admin: 03/04/17 02:01 Dose: 650 mg Allopurinol (Zyloprim -) 100 mg PO DAILY [facility] Last Admin: 03/05/17 10:25 Dose: 100 mg Amlodipine Besylate (Norvasc -) 5 mg PO DAILY [facility] Last Admin: 03/05/17 10:24 Dose: 5 mg Colchicine (Colcrys -) 0.6 mg PO DAILY [facility] Last Admin: 03/05/17 10:22 Dose: 0.6 mg Docusate Sodium (Colace -) 100 mg PO BID [facility] Last Admin: 03/05/17 10:22 Dose: 100 mg Enoxaparin Sodium (Lovenox -) 40 mg SQ DAILY [facility] Last Admin: 03/05/17 10:25 Dose: 40 mg Ceftriaxone Sodium 2 gm/ (Dextrose) 100 mls @ 200 mls/hr IVPB DAILY [facility] Last Admin: 03/05/17 10:24 Dose: 200 mls/hr Lactobacillus Acidophilus (Bacid -) 1 tab PO DAILY [facility] Last Admin: 03/05/17 10:21 Dose: 1 tab Lactulose (Cephulac (Oral Use)) 20 gm PO TID PRN PRN Reason: CONSTIPATION Methyl Salicylate (Hilario-Sheppard -) 1 applic TP BID [facility] Last Admin: 03/05/17 10:25 Dose: 1 applic Metoprolol Succinate (Toprol Xl -) 50 mg PO DAILY [facility] Last Admin: 03/05/17 10:24 Dose: 50 mg Ondansetron HCl (Zofran Injection) 4 mg IVPB Q6H PRN PRN Reason: NAUSEA Oxycodone HCl (Roxicodone -) 10 mg PO Q4H PRN PRN Reason: PAIN Last Admin: 03/05/17 06:20 Dose: 10 mg Polyethylene Glycol (Miralax (For Daily Use) -) 17 gm PO DAILY [facility] Last Admin: 03/05/17 10:23 Dose: 17 gm Zolpidem Tartrate (Ambien -) 5 mg PO HS PRN PRN Reason: INSOMNIA Last Admin: 03/04/17 22:27 Dose: 5 mg - Objective Vital Signs: Vital Signs Temperature 36.9 C 03/05/17 14:23 Pulse Rate 89 03/05/17 14:23 Respiratory Rate 18 03/05/17 14:23 Blood Pressure 144/70 03/05/17 14:23 O2 Sat by Pulse Oximetry (%) 98 03/04/17 21:00 Constitutional: Yes: Well Nourished, No Distress, Calm Cardiovascular: Yes: Regular Rate and Rhythm. No: Gallop, Murmur, Rub Respiratory: Yes: Regular, CTA Bilaterally. No: Rales, Rhonchi, Wheezes Gastrointestinal: Yes: Normal Bowel Sounds, Soft. No: Distention, Tenderness Extremities: Yes: WNL Edema: Yes Edema: RLE: 1+ Labs: CBC, BMP 03/05/17 06:30 03/05/17 06:30 Problem List - Problems (1) Septic joint of right shoulder region Code(s): M00.9 - PYOGENIC ARTHRITIS, UNSPECIFIED (2) Cellulitis of multiple sites of upper limb and shoulder Code(s): L03.119 - CELLULITIS OF UNSPECIFIED PART OF LIMB (3) ALBER (acute kidney injury) Code(s): N17.9 - ACUTE KIDNEY FAILURE, UNSPECIFIED (4) CKD (chronic kidney disease) Code(s): N18.9 - CHRONIC KIDNEY DISEASE, UNSPECIFIED Qualifiers: Chronic kidney disease stage: stage 3 (moderate) Qualified Code(s): N18.3 - Chronic kidney disease, stage 3 (moderate) (5) Elevated liver enzymes Code(s): R74.8 - ABNORMAL LEVELS OF OTHER SERUM ENZYMES (6) CAD (coronary artery disease) Code(s): I25.10 - ATHSCL HEART DISEASE OF [place] CORONARY ARTERY W/O ANG PCTRS (7) Hypertension Code(s): I10 - ESSENTIAL (PRIMARY) HYPERTENSION (8) Gout Code(s): M10.9 - GOUT, UNSPECIFIED Assessment/Plan (1) Septic R shoulder joint with cellulitis Assessment/Plan: -fever currently has not recurred -continue rocephin -? if needs further aspiration of joint -will obtain MRI of shoulder on Wednesday -case d/w Dr Ivy Code(s): L03.119 - CELLULITIS OF UNSPECIFIED PART OF LIMB (2) ALBER (acute kidney injury) Assessment/Plan: -back at baseline Code(s): N17.9 - ACUTE KIDNEY FAILURE, UNSPECIFIED (3) CKD (chronic kidney disease) Assessment/Plan: -appreciate nephrology assistance Code(s): N18.9 - CHRONIC KIDNEY DISEASE, UNSPECIFIED Qualifiers: Chronic kidney disease stage: stage 3 (moderate) Qualified Code(s): N18.3 - Chronic kidney disease, stage 3 (moderate) (4) Elevated liver enzymes Assessment/Plan: -appreciate GI assistance Code(s): R74.8 - ABNORMAL LEVELS OF OTHER SERUM ENZYMES (5) CAD (coronary artery disease) Assessment/Plan: -continue home regimen Code(s): I25.10 - ATHSCL HEART DISEASE OF [place] CORONARY ARTERY W/O ANG PCTRS (6) Hypertension Assessment/Plan: -continue norvasc -increased toprol xl -lisinopril held secondary to renal function -well controlled on current regimen Code(s): I10 - ESSENTIAL (PRIMARY) HYPERTENSION (7) Gout Assessment/Plan: -continue colchicine and allopurinol at this time -appreciate rheumatology assistance -follow up bone scan Code(s): M10.9 - GOUT, UNSPECIFIED (8) Hyperkalemia -case d/w nephrology -improved (9) Elevated platelets -hematology following -improving -secondary to sepsis/infection
--- NOTE | 2017-03-05 15:09 | PN ---
Progress Note, Physician History of Present Illness: stable no new issues still movement of the shoulder minimal - Current Medication List Current Medications: Active Medications Acetaminophen (Tylenol -) 650 mg PO Q4H PRN PRN Reason: FEVER Last Admin: 03/04/17 02:01 Dose: 650 mg Allopurinol (Zyloprim -) 100 mg PO DAILY [facility] Last Admin: 03/05/17 10:25 Dose: 100 mg Amlodipine Besylate (Norvasc -) 5 mg PO DAILY [facility] Last Admin: 03/05/17 10:24 Dose: 5 mg Colchicine (Colcrys -) 0.6 mg PO DAILY [facility] Last Admin: 03/05/17 10:22 Dose: 0.6 mg Docusate Sodium (Colace -) 100 mg PO BID [facility] Last Admin: 03/05/17 10:22 Dose: 100 mg Enoxaparin Sodium (Lovenox -) 40 mg SQ DAILY [facility] Last Admin: 03/05/17 10:25 Dose: 40 mg Ceftriaxone Sodium 2 gm/ (Dextrose) 100 mls @ 200 mls/hr IVPB DAILY [facility] Last Admin: 03/05/17 10:24 Dose: 200 mls/hr Lactobacillus Acidophilus (Bacid -) 1 tab PO DAILY [facility] Last Admin: 03/05/17 10:21 Dose: 1 tab Lactulose (Cephulac (Oral Use)) 20 gm PO TID PRN PRN Reason: CONSTIPATION Methyl Salicylate (Hilario-Sheppard -) 1 applic TP BID [facility] Last Admin: 03/05/17 10:25 Dose: 1 applic Metoprolol Succinate (Toprol Xl -) 50 mg PO DAILY [facility] Last Admin: 03/05/17 10:24 Dose: 50 mg Ondansetron HCl (Zofran Injection) 4 mg IVPB Q6H PRN PRN Reason: NAUSEA Oxycodone HCl (Roxicodone -) 10 mg PO Q4H PRN PRN Reason: PAIN Last Admin: 03/05/17 06:20 Dose: 10 mg Polyethylene Glycol (Miralax (For Daily Use) -) 17 gm PO DAILY [facility] Last Admin: 03/05/17 10:23 Dose: 17 gm Zolpidem Tartrate (Ambien -) 5 mg PO HS PRN PRN Reason: INSOMNIA Last Admin: 03/04/17 22:27 Dose: 5 mg - Objective Vital Signs: Vital Signs Temperature 98.4 F 09/15/17 14:23 Pulse Rate 89 03/05/17 14:23 Respiratory Rate 18 03/05/17 14:23 Blood Pressure 144/70 03/05/17 14:23 O2 Sat by Pulse Oximetry (%) 98 03/04/17 21:00 Constitutional: Yes: No Distress, Calm Cardiovascular: Yes: Regular Rate and Rhythm Respiratory: Yes: Regular, CTA Bilaterally Gastrointestinal: Yes: Normal Bowel Sounds, Soft Musculoskeletal: Yes: WNL Extremities: Yes: WNL Neurological: Yes: Alert, Oriented Psychiatric: Yes: Alert Labs: CBC, BMP 03/05/17 06:30 03/05/17 06:30 Assessment/Plan Problem List - Problems (1) Cellulitis of multiple sites of upper limb and shoulder Code(s): L03.119 - CELLULITIS OF UNSPECIFIED PART OF LIMB (2) ALBER (acute kidney injury) Code(s): N17.9 - ACUTE KIDNEY FAILURE, UNSPECIFIED (3) CKD (chronic kidney disease) Code(s): N18.9 - CHRONIC KIDNEY DISEASE, UNSPECIFIED Qualifiers: Chronic kidney disease stage: stage 3 (moderate) Qualified Code(s): N18.3 - Chronic kidney disease, stage 3 (moderate) (4) Elevated liver enzymes Code(s): R74.8 - ABNORMAL LEVELS OF OTHER SERUM ENZYMES (5) CAD (coronary artery disease) Code(s): I25.10 - ATHSCL HEART DISEASE OF [place] CORONARY ARTERY W/O ANG PCTRS (6) Hypertension Code(s): I10 - ESSENTIAL (PRIMARY) HYPERTENSION (7) Gout Code(s): M10.9 - GOUT, UNSPECIFIED ortho note reviewed plan continue abx i think patient should get mri of the shoulder if fluid reaspirate rest continue current mgmt
--- NOTE | 2017-03-05 15:44 | PN ---
Progress Note (short form) - Note Progress Note: Seen in follow up. Shoulder pain persistent, now with likely a rt foot gouty flare No other complaints. On exam: General: Looks well, in bed. Extremities: No pallor, no icterus. right shoulder: swollen, pain on movement. No erythema noted Chest:breathing comfortably, Abdomen: Non-distended. Neuro: Alert, oriented, non-focal. Last Vital Signs Temp Pulse Resp BP Pulse Ox 98.4 F 89 18 144/70 98 03/05/17 14:23 03/05/17 14:23 03/05/17 14:23 03/05/17 14:23 03/04/17 21:00 CBC, BMP 03/05/17 06:30 03/05/17 06:30 Current Medications Generic Name Dose Route Start Last Admin Trade Name Freq PRN Reason Stop Dose Admin Acetaminophen 650 mg 03/02/17 20:48 03/04/17 02:01 Tylenol - PO 650 mg Q4H PRN Administration FEVER Allopurinol 100 mg 02/18/17 11:00 03/05/17 10:25 Zyloprim - PO 100 mg DAILY [facility] Administration Amlodipine Besylate 5 mg 02/18/17 10:00 03/05/17 10:24 Norvasc - PO 5 mg DAILY [facility] Administration Colchicine 0.6 mg 03/03/17 10:00 03/05/17 10:22 Colcrys - PO 0.6 mg DAILY [facility] Administration Docusate Sodium 100 mg 02/17/17 22:00 03/05/17 10:22 Colace - PO 100 mg BID [facility] Administration Enoxaparin Sodium 40 mg 02/25/17 12:45 03/05/17 10:25 Lovenox - SQ 40 mg DAILY [facility] Administration Ceftriaxone Sodium 2 gm/ 100 mls @ 200 mls/hr 02/22/17 15:00 03/05/17 10:24 Dextrose IVPB 200 mls/hr DAILY [facility] Administration Lactobacillus Acidophilus 1 tab 02/18/17 10:00 03/05/17 10:21 Bacid - PO 1 tab DAILY [facility] Administration Lactulose 20 gm 03/03/17 14:30 Cephulac (Oral Use) PO TID PRN CONSTIPATION Methyl Salicylate 1 applic 02/22/17 10:00 03/05/17 10:25 Hilario-Sheppard - TP 1 applic BID [facility] Administration Metoprolol Succinate 50 mg 02/18/17 10:57 03/05/17 10:24 Toprol Xl - PO 50 mg DAILY [facility] Administration Ondansetron HCl 4 mg 02/17/17 15:03 Zofran Injection IVPB Q6H PRN NAUSEA Oxycodone HCl 10 mg 02/19/17 13:37 03/05/17 06:20 Roxicodone - PO 10 mg Q4H PRN Administration PAIN Polyethylene Glycol 17 gm 02/18/17 10:00 03/05/17 10:23 Miralax (For Daily Use) - PO 17 gm DAILY [facility] Administration Zolpidem Tartrate 5 mg 02/20/17 21:51 03/04/17 22:27 Ambien - PO 5 mg HS PRN Administration INSOMNIA Assessment/Plan: Acute thrombocytosis Reactive from underlying infection/inflammation Improving ID and Ortho f/u noted, likely will get an MRI of the shoulder repeated. On allopurinol/colchicine for gouty flare of the right toe Will follow.
[2017-03-05] MEDS: ZOLPIDEM TARTRATE 5 MG TABLET PO PRN (23:18)
[2017-03-06 07:37] LABS: BASOPHIL 2.2 % (0-2.0); EOSINOPHIL 1.5 % (0-4.5); MCHC 33.1 g/dl (32.0-35.9); MEAN CELL VOLUME 84.7 fl (80-96); MEAN PLT VOLUME 8.1 fl (7.5-11.1); NEUTROPHILS 56.7 % (42.8-82.8); PLATELET COUNT 932 K/MM3 (134-434); RDW 14.7 % (11.9-15.9)
[2017-03-06 07:56] LABS: ANION GAP 10 (8-16); CO2 28 mmol/L (21-32); CREATININE 1.4 mg/dL (0.7-1.3); GLUCOSE,RANDOM 84 mg/dL (74-106); MAGNESIUM 2.7 mg/dL (1.8-2.4); PHOSPHOROUS 4.4 mg/dL (2.5-4.9)
--- NOTE | 2017-03-06 08:05 | PN ---
Physical Exam: SUBJECTIVE: Patient seen and examined Patient feels upset that he is in the hospital for a long time. He states that he feels well, would like to get his Picc line and continue treatment at home. OBJECTIVE: Vital Signs Temperature 98.7 F 03/06/17 06:00 Pulse Rate 89 03/06/17 06:00 Respiratory Rate 20 03/06/17 06:00 Blood Pressure 140/67 03/06/17 06:00 O2 Sat by Pulse Oximetry (%) 98 03/05/17 21:00 GENERAL: The patient is awake, alert, and fully oriented, in no acute distress. HEAD: Normal with no signs of trauma. EYES: PERRL, extraocular movements intact, sclera anicteric, conjunctiva clear. ENT: Ears normal, oropharynx clear without exudates, moist mucous membranes. NECK: Trachea midline, full range of motion, supple. LUNGS: Breath sounds equal, clear to auscultation bilaterally, no wheezes, no crackles, no accessory muscle use. HEART: Regular rate and rhythm, S1, S2 without murmur, rub or gallop. ABDOMEN: Soft, nontender, nondistended, normoactive bowel sounds, no guarding, no rebound, no hepatosplenomegaly, no masses. EXTREMITIES: 2+ pulses, warm, well-perfused, Right lower extremity positive for swelling with gout ,improving . Right shoulder with good ROM , no erythema noted. NEUROLOGICAL: Cranial nerves II through XII grossly intact. Normal speech, gait not observed. PSYCH: Normal mood, normal affect. SKIN: Warm, dry, normal turgor, no rashes or lesions noted CBCD WBC 6.0 K/mm3 (4.0-10.0) 03/06/17 06:30 RBC 2.88 M/mm3 (4.00-5.60) L 03/06/17 06:30 Hgb 8.1 GM/dL (11.7-16.9) L 03/06/17 06:30 Hct 24.4 % (35.4-49) L 03/06/17 06:30 MCV 84.7 fl (80-96) 03/06/17 06:30 MCHC 33.1 g/dl (32.0-35.9) 03/06/17 06:30 RDW 14.7 % (11.9-15.9) 03/06/17 06:30 Plt Count 932 K/MM3 (134-434) H 03/06/17 06:30 MPV 8.1 fl (7.5-11.1) 03/06/17 06:30 CMP Sodium 136 mmol/L (136-145) 03/05/17 06:30 Potassium 5.0 mmol/L (3.5-5.1) 03/05/17 06:30 Chloride 97 mmol/L (98-107) L 03/05/17 06:30 Carbon Dioxide 29 mmol/L (21-32) 03/05/17 06:30 Anion Gap 10 (8-16) 03/05/17 06:30 BUN 29 mg/dL (7-18) H 03/05/17 06:30 Creatinine 1.5 mg/dL (0.7-1.3) H 03/05/17 06:30 Creat Clearance w eGFR 49.68 (>60) 03/01/17 07:15 Random Glucose 83 mg/dL (74-106) 03/05/17 06:30 Calcium 8.7 mg/dL (8.5-10.1) 03/05/17 06:30 Total Bilirubin 0.7 mg/dL (0.2-1.0) D 03/01/17 07:15 AST 20 U/L (15-37) 03/01/17 07:15 ALT 38 U/L (12-78) 03/01/17 07:15 Alkaline Phosphatase 211 U/L (45-117) H 03/01/17 07:15 Total Protein 6.9 g/dl (6.4-8.2) 03/01/17 07:15 Albumin 2.3 g/dl (3.4-5.0) L D 03/01/17 07:15 CARDIAC ENZYMES Creatine Kinase 62 IU/L (39-308) 02/17/17 10:00 Active Medications Generic Name Dose Route Start Last Admin Trade Name Freq PRN Reason Stop Dose Admin Acetaminophen 650 mg 03/02/17 20:48 03/04/17 02:01 Tylenol - PO 650 mg Q4H PRN Administration FEVER Allopurinol 100 mg 02/18/17 11:00 03/05/17 10:25 Zyloprim - PO 100 mg DAILY TABBY Administration Amlodipine Besylate 5 mg 02/18/17 10:00 03/05/17 10:24 Norvasc - PO 5 mg DAILY TABBY Administration Colchicine 0.6 mg 03/03/17 10:00 03/05/17 10:22 Colcrys - PO 0.6 mg DAILY TABBY Administration Docusate Sodium 100 mg 02/17/17 22:00 03/05/17 21:12 Colace - PO 100 mg BID TABBY Administration Enoxaparin Sodium 40 mg 02/25/17 12:45 03/05/17 10:25 Lovenox - SQ 40 mg DAILY TABBY Administration Ceftriaxone Sodium 2 gm/ 100 mls @ 200 mls/hr 02/22/17 15:00 03/05/17 10:24 Dextrose IVPB 200 mls/hr DAILY TABBY Administration Lactobacillus Acidophilus 1 tab 02/18/17 10:00 03/05/17 10:21 Bacid - PO 1 tab DAILY TABBY Administration Lactulose 20 gm 03/03/17 14:30 Cephulac (Oral Use) PO TID PRN CONSTIPATION Methyl Salicylate 1 applic 02/22/17 10:00 03/05/17 21:13 Hilario-Sheppard - TP 1 applic BID TABBY Administration Metoprolol Succinate 50 mg 02/18/17 10:57 03/05/17 10:24 Toprol Xl - PO 50 mg DAILY TABBY Administration Ondansetron HCl 4 mg 02/17/17 15:03 Zofran Injection IVPB Q6H PRN NAUSEA Oxycodone HCl 10 mg 02/19/17 13:37 03/05/17 23:18 Roxicodone - PO 10 mg Q4H PRN Administration PAIN Polyethylene Glycol 17 gm 02/18/17 10:00 03/05/17 10:23 Miralax (For Daily Use) - PO 17 gm DAILY TABBY Administration Zolpidem Tartrate 5 mg 02/20/17 21:51 03/05/17 23:18 Ambien - PO 5 mg HS PRN Administration INSOMNIA Home Medications Medication Instructions Recorded Aspirin Coated [Ecotrin -] 81 mg PO DAILY 01/20/13 Lisinopril [Prinivil -] 20 mg PO DAILY 01/20/13 Metoprolol Succinate [Toprol XL -] 25 mg PO DAILY 01/20/13 Amlodipine Besylate [Norvasc -] 5 mg PO DAILY 02/27/14 Zolpidem Tartrate [Ambien] 5 mg PO HS PRN 03/01/14 ASSESSMENT/PLAN: Patient is a 71M admitted through [facility] for evaluation of swollen right arm. Mr. Jones attributes this to having "brushed his right arm against a wall last week. # Septic R shoulder joint with cellulitis continue IV rocephin , possible MRI of shoulder on Wednesday, Dr. Ivy on the case. Patient would like to know the plan and would like to get his Picc line and continue rest of IV antibiotic at home and would like to see his orthopedic dr. for follow up care. # Right Lower extremitiy with gout exacerbation on colchicine and allopurinol and on oxycodone # ALBER (acute kidney injury) back at baseline(1.5) # CKD (chronic kidney disease) nephro consult Dr. mason # Elevated liver enzymes back to normal now #CAD (coronary artery disease) continue home regimen # Hypertension continue toprol xl ,lisinopril held secondary to renal function # Hyperkalemia improved # Elevated platelets secondary to sepsis/infection Dvt Px: LOvenox Visit type - Emergency Visit Emergency Visit: Yes ED Registration Date: 02/17/17 Care time: The patient presented to the Emergency Department on the above date and was hospitalized for further evaluation of their emergent condition. - New Patient This patient is new to me today: Yes Date on this admission: 03/06/17 - Critical Care Critical Care patient: No
[2017-03-06] MEDS ORDERED: DEXTROSE 5%-WATER 100 ML IVPB ONE (09:24)
[2017-03-06] MEDS: DOCUSATE SODIUM 100 MG CAPSULE (FP) PO SCH ×2 (09:27→21:42)
[2017-03-06] MEDS: LACTOBACILLUS ACIDOPHILUS 1 EACH TAB (FP) PO SCH (09:27)
[2017-03-06] MEDS: CEFTRIAXONE 2 GM in DEXTROSE 5%-WATER 100 ML IVPB SCH (09:27)
[2017-03-06] MEDS: ENOXAPARIN NA (PORCINE) 40 MG/0.4 ML DISP.SYRIN SQ SCH (09:27)
[2017-03-06] MEDS: COLCHICINE 0.6 MG TABLET (FP) PO SCH (09:27)
[2017-03-06] MEDS: amLODIPine BESYLATE 5 MG TABLET (FP) PO SCH (09:28)
[2017-03-06] MEDS: ALLOPURINOL 100 MG TABLET (FP) PO SCH (09:28)
[2017-03-06] MEDS: METHYL SALICYLATE/MENTHOL OINT 30 GM TUBE TP SCH ×2 (09:28→21:43)
[2017-03-06] MEDS: METOPROLOL SUCCINATE 50 MG TAB.SR.24H (FP) PO SCH (09:28)
[2017-03-06] MEDS: POLYETHYLENE GLYCOL 3350 119 GM BTL PO SCH (09:28)
[2017-03-06] MEDS: oxyCODONE HCL 5 MG TABLET PO PRN ×2 (09:35→18:58)
--- NOTE | 2017-03-06 11:57 | PN ---
Progress Note (short form) - Note Progress Note: The patient has a WBC of 6.0. He is, and has been afebrile. He has a torn rotator cuff with degenerative changes, and therefore will always have a joint effusion. His last aspirate was sterile on Gram stain and culture. In my opinion, an MRI will not add anything at this time. There is no indication to re-aspirate his shoulder. The principle behind multiple aspirations is to reduce the intra-articular pressure in order to preserve articular cartilage. Since he has a large rotator cuff tear, there is no intra-articular pressure. I would recommend that the treatment of his shoulder consist of the completion of antibiotics and elective outpatient shoulder procedure as warranted.
--- NOTE | 2017-03-06 15:10 | PN ---
Progress Note, Physician History of Present Illness: Pt alert, still some pain in Rt shoulder Afebrile - Current Medication List Current Medications: Active Medications Acetaminophen (Tylenol -) 650 mg PO Q4H PRN PRN Reason: FEVER Last Admin: 03/04/17 02:01 Dose: 650 mg Allopurinol (Zyloprim -) 100 mg PO DAILY [facility] Last Admin: 03/06/17 09:28 Dose: 100 mg Amlodipine Besylate (Norvasc -) 5 mg PO DAILY [facility] Last Admin: 03/06/17 09:28 Dose: 5 mg Colchicine (Colcrys -) 0.6 mg PO DAILY [facility] Last Admin: 03/06/17 09:27 Dose: 0.6 mg Docusate Sodium (Colace -) 100 mg PO BID [facility] Last Admin: 03/06/17 09:27 Dose: 100 mg Enoxaparin Sodium (Lovenox -) 40 mg SQ DAILY [facility] Last Admin: 03/06/17 09:27 Dose: 40 mg Ceftriaxone Sodium 2 gm/ (Dextrose) 100 mls @ 200 mls/hr IVPB DAILY [facility] Last Admin: 03/06/17 09:27 Dose: 200 mls/hr Lactobacillus Acidophilus (Bacid -) 1 tab PO DAILY [facility] Last Admin: 03/06/17 09:27 Dose: 1 tab Lactulose (Cephulac (Oral Use)) 20 gm PO TID PRN PRN Reason: CONSTIPATION Methyl Salicylate (Hilario-Sheppard -) 1 applic TP BID [facility] Last Admin: 03/06/17 09:28 Dose: Not Given Metoprolol Succinate (Toprol Xl -) 50 mg PO DAILY [facility] Last Admin: 03/06/17 09:28 Dose: 50 mg Ondansetron HCl (Zofran Injection) 4 mg IVPB Q6H PRN PRN Reason: NAUSEA Oxycodone HCl (Roxicodone -) 10 mg PO Q4H PRN PRN Reason: PAIN Last Admin: 03/06/17 09:35 Dose: 10 mg Polyethylene Glycol (Miralax (For Daily Use) -) 17 gm PO DAILY [facility] Last Admin: 03/06/17 09:28 Dose: Not Given Zolpidem Tartrate (Ambien -) 5 mg PO HS PRN PRN Reason: INSOMNIA Last Admin: 03/05/17 23:18 Dose: 5 mg - Objective Vital Signs: Vital Signs Temperature 98.4 F 03/06/17 08:56 Pulse Rate 104 H 03/06/17 08:56 Respiratory Rate 18 03/06/17 08:56 Blood Pressure 140/76 03/06/17 08:56 O2 Sat by Pulse Oximetry (%) 98 03/06/17 09:00 Constitutional: Yes: No Distress Neck: Yes: Supple Cardiovascular: Yes: Regular Rate and Rhythm Respiratory: Yes: Regular Gastrointestinal: Yes: Normal Bowel Sounds, Soft Genitourinary: Yes: WNL Musculoskeletal: Yes: Joint Swelling (Rt shoulder, no erythema, mild tenderness) Extremities: Yes: Other (Lt LE edema) Neurological: Yes: Alert Labs: CBC, BMP 03/06/17 06:30 03/06/17 06:30 Problem List - Problems (1) ALBER (acute kidney injury) Code(s): N17.9 - ACUTE KIDNEY FAILURE, UNSPECIFIED (2) CKD (chronic kidney disease) Code(s): N18.9 - CHRONIC KIDNEY DISEASE, UNSPECIFIED Qualifiers: Chronic kidney disease stage: stage 3 (moderate) Qualified Code(s): N18.3 - Chronic kidney disease, stage 3 (moderate) (3) Elevated liver enzymes Code(s): R74.8 - ABNORMAL LEVELS OF OTHER SERUM ENZYMES (4) CAD (coronary artery disease) Code(s): I25.10 - ATHSCL HEART DISEASE OF [place] CORONARY ARTERY W/O ANG PCTRS (5) Fever Code(s): R50.9 - FEVER, UNSPECIFIED Assessment/Plan Rt shoulder septic arthritis - continue antibiotics - ortho f/u, consider MRI, drainage if fluid currently stable
[2017-03-06] MEDS: ZOLPIDEM TARTRATE 5 MG TABLET PO PRN (21:42)
[2017-03-07] MEDS ORDERED: PT OWN MED DRAWER 7, Y5N ONE ×4 (00:45→22:20)
[2017-03-07] MEDS: oxyCODONE HCL 5 MG TABLET PO PRN ×2 (05:58→18:49)
[2017-03-07] MEDS ORDERED: DEXTROSE 5%-WATER 100 ML IVPB ONE (09:24)
[2017-03-07] MEDS: amLODIPine BESYLATE 5 MG TABLET (FP) PO SCH (09:31)
[2017-03-07] MEDS: DOCUSATE SODIUM 100 MG CAPSULE (FP) PO SCH ×2 (09:31→21:59)
[2017-03-07] MEDS: CEFTRIAXONE 2 GM in DEXTROSE 5%-WATER 100 ML IVPB SCH (09:31)
[2017-03-07] MEDS: LACTOBACILLUS ACIDOPHILUS 1 EACH TAB (FP) PO SCH (09:31)
[2017-03-07] MEDS: ALLOPURINOL 100 MG TABLET (FP) PO SCH (09:31)
[2017-03-07] MEDS: ENOXAPARIN NA (PORCINE) 40 MG/0.4 ML DISP.SYRIN SQ SCH (09:31)
[2017-03-07] MEDS: METOPROLOL SUCCINATE 50 MG TAB.SR.24H (FP) PO SCH (09:31)
[2017-03-07] MEDS: COLCHICINE 0.6 MG TABLET (FP) PO SCH (09:32)
[2017-03-07] MEDS: POLYETHYLENE GLYCOL 3350 119 GM BTL PO SCH (09:32)
[2017-03-07] MEDS: METHYL SALICYLATE/MENTHOL OINT 30 GM TUBE TP SCH ×2 (09:32→21:59)
--- NOTE | 2017-03-07 12:20 | PN ---
Progress Note, Physician History of Present Illness: Pt clinically the same. Pain in Rt shoulder controlled, some limited movement. No other complaints. - Current Medication List Current Medications: Active Medications Acetaminophen (Tylenol -) 650 mg PO Q4H PRN PRN Reason: FEVER Last Admin: 03/04/17 02:01 Dose: 650 mg Allopurinol (Zyloprim -) 100 mg PO DAILY [facility] Last Admin: 03/07/17 09:31 Dose: 100 mg Amlodipine Besylate (Norvasc -) 5 mg PO DAILY [facility] Last Admin: 03/07/17 09:31 Dose: 5 mg Colchicine (Colcrys -) 0.6 mg PO DAILY [facility] Last Admin: 03/07/17 09:32 Dose: 0.6 mg Docusate Sodium (Colace -) 100 mg PO BID [facility] Last Admin: 03/07/17 09:31 Dose: 100 mg Enoxaparin Sodium (Lovenox -) 40 mg SQ DAILY [facility] Last Admin: 03/07/17 09:31 Dose: 40 mg Ceftriaxone Sodium 2 gm/ (Dextrose) 100 mls @ 200 mls/hr IVPB DAILY [facility] Last Admin: 03/07/17 09:31 Dose: 200 mls/hr Lactobacillus Acidophilus (Bacid -) 1 tab PO DAILY [facility] Last Admin: 03/07/17 09:31 Dose: 1 tab Lactulose (Cephulac (Oral Use)) 20 gm PO TID PRN PRN Reason: CONSTIPATION Methyl Salicylate (Hilario-Sheppard -) 1 applic TP BID [facility] Last Admin: 03/07/17 09:32 Dose: Not Given Metoprolol Succinate (Toprol Xl -) 50 mg PO DAILY [facility] Last Admin: 03/07/17 09:31 Dose: 50 mg Ondansetron HCl (Zofran Injection) 4 mg IVPB Q6H PRN PRN Reason: NAUSEA Oxycodone HCl (Roxicodone -) 10 mg PO Q4H PRN PRN Reason: PAIN Last Admin: 03/07/17 05:58 Dose: 10 mg Polyethylene Glycol (Miralax (For Daily Use) -) 17 gm PO DAILY [facility] Last Admin: 03/07/17 09:32 Dose: Not Given Zolpidem Tartrate (Ambien -) 5 mg PO HS PRN PRN Reason: INSOMNIA Last Admin: 03/06/17 21:42 Dose: 5 mg - Objective Vital Signs: Vital Signs Temperature 98.2 F 03/07/17 06:00 Pulse Rate 91 H 03/07/17 06:00 Respiratory Rate 18 03/07/17 06:00 Blood Pressure 145/70 03/07/17 06:00 O2 Sat by Pulse Oximetry (%) 98 03/06/17 21:00 Constitutional: Yes: No Distress Cardiovascular: Yes: Regular Rate and Rhythm Respiratory: Yes: CTA Bilaterally Gastrointestinal: Yes: Normal Bowel Sounds, Soft Genitourinary: Yes: WNL Musculoskeletal: Yes: Joint Swelling (Rt shoulder, erythema resolved) Integumentary: Yes: WNL Neurological: Yes: Alert, Oriented Labs: CBC, BMP 03/06/17 06:30 03/06/17 06:30 Problem List - Problems (1) ALBER (acute kidney injury) Code(s): N17.9 - ACUTE KIDNEY FAILURE, UNSPECIFIED (2) CKD (chronic kidney disease) Code(s): N18.9 - CHRONIC KIDNEY DISEASE, UNSPECIFIED Qualifiers: Chronic kidney disease stage: stage 3 (moderate) Qualified Code(s): N18.3 - Chronic kidney disease, stage 3 (moderate) (3) Elevated liver enzymes Code(s): R74.8 - ABNORMAL LEVELS OF OTHER SERUM ENZYMES (4) CAD (coronary artery disease) Code(s): I25.10 - ATHSCL HEART DISEASE OF [place] CORONARY ARTERY W/O ANG PCTRS (5) Fever Code(s): R50.9 - FEVER, UNSPECIFIED (6) Septic joint of right shoulder region Code(s): M00.9 - PYOGENIC ARTHRITIS, UNSPECIFIED Assessment/Plan Pt stable continue antibiotics monitor
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
[2017-03-07] MEDS ORDERED: SODIUM CHLORIDE 0.45% 1,000 ML IV SCH (17:45)
[2017-03-07] MEDS ORDERED: oxyCODONE HCL 5 MG TABLET ONE (18:47)
[2017-03-07] MEDS ORDERED: ZOLPIDEM TARTRATE 5 MG TABLET PO ONE (22:24)
[2017-03-08] MEDS: oxyCODONE HCL 5 MG TABLET PO PRN ×2 (02:23→14:47)
[2017-03-08] MEDS ORDERED: INSULIN (NOVOLOG) ASPART 100 UNITS/ML 10ML VIAL ONE (06:55)
[2017-03-08] MEDS ORDERED: INSULIN DETEMIR 100 UNITS/ML MDV SQ ONE (06:55)
[2017-03-08 07:30] LABS: BASOPHIL 1.9 % (0-2.0); EOSINOPHIL 1.5 % (0-4.5); MCH 27.8 pg (25.7-33.7); MCHC 32.6 g/dl (32.0-35.9); MEAN CELL VOLUME 85.4 fl (80-96); MEAN PLT VOLUME 7.7 fl (7.5-11.1); NEUTROPHILS 59.2 % (42.8-82.8); PLATELET COUNT 858 K/MM3 (134-434); WHITE BLOOD COUNT 7.1 K/mm3 (4.0-10.0)
[2017-03-08 07:57] LABS: ALBUMIN 1.9 g/dl (3.4-5.0); ALK PHOS 146 U/L (45-117); ANION GAP 8 (8-16); BILIRUBIN,TOTAL 0.3 mg/dL (0.2-1.0); CALCIUM 8.6 mg/dL (8.5-10.1); CO2 29 mmol/L (21-32); CREATININE 1.3 mg/dL (0.7-1.3); GLUCOSE,RANDOM 83 mg/dL (74-106); SGOT/AST 29 U/L (15-37); SGPT/ALT 40 U/L (12-78)
[2017-03-08] MEDS ORDERED: PT OWN MED DRAWER 7, Y5N ONE (10:28)
[2017-03-08] MEDS ORDERED: DEXTROSE 5%-WATER 100 ML IVPB ONE (10:29)
[2017-03-08] MEDS: amLODIPine BESYLATE 5 MG TABLET (FP) PO SCH (10:36)
[2017-03-08] MEDS: LACTOBACILLUS ACIDOPHILUS 1 EACH TAB (FP) PO SCH (10:36)
[2017-03-08] MEDS: COLCHICINE 0.6 MG TABLET (FP) PO SCH (10:36)
[2017-03-08] MEDS: METOPROLOL SUCCINATE 50 MG TAB.SR.24H (FP) PO SCH (10:36)
[2017-03-08] MEDS: CEFTRIAXONE 2 GM in DEXTROSE 5%-WATER 100 ML IVPB SCH (10:36)
[2017-03-08] MEDS: ALLOPURINOL 100 MG TABLET (FP) PO SCH (10:36)
[2017-03-08] MEDS: POLYETHYLENE GLYCOL 3350 119 GM BTL PO SCH (10:36)
[2017-03-08] MEDS: ENOXAPARIN NA (PORCINE) 40 MG/0.4 ML DISP.SYRIN SQ SCH (10:36)
[2017-03-08] MEDS: METHYL SALICYLATE/MENTHOL OINT 30 GM TUBE TP SCH ×2 (10:37→21:25)
[2017-03-08] MEDS: DOCUSATE SODIUM 100 MG CAPSULE (FP) PO SCH ×2 (10:37→21:28)
[2017-03-08] MEDS ORDERED: PICC LINE 8 ML FLUSH PROTOCOL IVPUSH PRN (14:21)
--- NOTE | 2017-03-08 14:27 | PN ---
Progress Note, Physician History of Present Illness: stable no new issues - Current Medication List Current Medications: Active Medications Acetaminophen (Tylenol -) 650 mg PO Q4H PRN PRN Reason: FEVER Last Admin: 03/04/17 02:01 Dose: 650 mg Allopurinol (Zyloprim -) 100 mg PO DAILY [facility] Last Admin: 03/08/17 10:36 Dose: 100 mg Amlodipine Besylate (Norvasc -) 5 mg PO DAILY [facility] Last Admin: 03/08/17 10:36 Dose: 5 mg Colchicine (Colcrys -) 0.6 mg PO DAILY [facility] Last Admin: 03/08/17 10:36 Dose: 0.6 mg Docusate Sodium (Colace -) 100 mg PO BID [facility] Last Admin: 03/08/17 10:37 Dose: Not Given Enoxaparin Sodium (Lovenox -) 40 mg SQ DAILY [facility] Last Admin: 03/08/17 10:36 Dose: 40 mg IV Flush (Picc Line Flush) 8 ml IVPUSH PRN PRN PRN Reason: Protocol Ceftriaxone Sodium 2 gm/ (Dextrose) 100 mls @ 200 mls/hr IVPB DAILY [facility] Last Admin: 03/08/17 10:36 Dose: 200 mls/hr Lactobacillus Acidophilus (Bacid -) 1 tab PO DAILY [facility] Last Admin: 03/08/17 10:36 Dose: 1 tab Lactulose (Cephulac (Oral Use)) 20 gm PO TID PRN PRN Reason: CONSTIPATION Methyl Salicylate (Hilario-Sheppard -) 1 applic TP BID [facility] Last Admin: 03/08/17 10:37 Dose: Not Given Metoprolol Succinate (Toprol Xl -) 50 mg PO DAILY [facility] Last Admin: 03/08/17 10:36 Dose: 50 mg Ondansetron HCl (Zofran Injection) 4 mg IVPB Q6H PRN PRN Reason: NAUSEA Oxycodone HCl (Roxicodone -) 10 mg PO Q6H PRN PRN Reason: PAIN Last Admin: 03/08/17 02:23 Dose: 10 mg Polyethylene Glycol (Miralax (For Daily Use) -) 17 gm PO DAILY [facility] Last Admin: 03/08/17 10:36 Dose: Not Given - Objective Vital Signs: Vital Signs Temperature 98.3 F 03/08/17 06:13 Pulse Rate 85 03/08/17 06:13 Respiratory Rate 20 03/08/17 06:13 Blood Pressure 149/79 03/08/17 06:13 O2 Sat by Pulse Oximetry (%) 98 03/07/17 21:00 Constitutional: Yes: No Distress, Calm HENT: Yes: Atraumatic Neck: Yes: Supple, Trachea Midline Cardiovascular: Yes: Regular Rate and Rhythm Respiratory: Yes: Regular, CTA Bilaterally Gastrointestinal: Yes: Normal Bowel Sounds, Soft Musculoskeletal: Yes: Other Extremities: Yes: Other Neurological: Yes: Alert, Oriented Psychiatric: Yes: Alert, Oriented Labs: CBC, BMP 03/08/17 06:00 03/08/17 06:00 Assessment/Plan Problem List - Problems (1) Cellulitis of multiple sites of upper limb and shoulder Code(s): L03.119 - CELLULITIS OF UNSPECIFIED PART OF LIMB (2) ALBER (acute kidney injury) Code(s): N17.9 - ACUTE KIDNEY FAILURE, UNSPECIFIED (3) CKD (chronic kidney disease) Code(s): N18.9 - CHRONIC KIDNEY DISEASE, UNSPECIFIED Qualifiers: Chronic kidney disease stage: stage 3 (moderate) Qualified Code(s): N18.3 - Chronic kidney disease, stage 3 (moderate) (4) Elevated liver enzymes Code(s): R74.8 - ABNORMAL LEVELS OF OTHER SERUM ENZYMES (5) CAD (coronary artery disease) Code(s): I25.10 - ATHSCL HEART DISEASE OF [place] CORONARY ARTERY W/O ANG PCTRS (6) Hypertension Code(s): I10 - ESSENTIAL (PRIMARY) HYPERTENSION (7) Gout Code(s): M10.9 - GOUT, UNSPECIFIED ortho note reviewed plan continue abx patient should get another 18 days of iv abx from tomorrow mri to be done today
--- NOTE | 2017-03-08 15:25 | PN ---
Physical Exam: SUBJECTIVE: Patient seen and examined. He denies any shortness of breath or discomfort. He wants to go home by tomorrow after PICC line placed OBJECTIVE: Vital Signs Period Temp Pulse Resp BP Sys/Yepez Pulse Ox Last 24 Hr 98.3 F-99.3 F 82-85 18-20 138-149/63-79 98 GENERAL: The patient is awake, alert, and fully oriented, in no acute distress. HEAD: Normal with no signs of trauma. EYES: PERRL, extraocular movements intact, sclera anicteric, conjunctiva clear. ENT: Ears normal, oropharynx clear without exudates, moist mucous membranes. NECK: Trachea midline, full range of motion, supple. LUNGS: Breath sounds equal, clear to auscultation bilaterally, no wheezes, no crackles, no accessory muscle use. HEART: Regular rate and rhythm, S1, S2 without murmur, rub or gallop. ABDOMEN: Soft, nontender, nondistended, normoactive bowel sounds, no guarding, no rebound, no hepatosplenomegaly, no masses. EXTREMITIES: 2+ pulses, warm, well-perfused, Right shoulder with good ROM, no erythema, no swelling no discomfort NEUROLOGICAL: Normal speech, gait not observed. PSYCH: Normal mood, normal affect. SKIN: Warm, dry, normal turgor, no rashes or lesions noted Laboratory Results - last 24 hr 03/08/17 03/08/17 06:00 06:00 WBC 7.1 RBC 3.02 L Hgb 8.4 L Hct 25.8 L MCV 85.4 MCH 27.8 MCHC 32.6 RDW 15.0 Plt Count 858 H MPV 7.7 Neutrophils % 59.2 Lymphocytes % 25.3 Monocytes % 12.1 H Eosinophils % 1.5 Basophils % 1.9 Sodium 140 Potassium 5.0 Chloride 103 Carbon Dioxide 29 Anion Gap 8 BUN 21 H D Creatinine 1.3 Creat Clearance w eGFR 53.96 Random Glucose 83 Calcium 8.6 Total Bilirubin 0.3 D AST 29 D ALT 40 Alkaline Phosphatase 146 H D Total Protein 6.0 L Albumin 1.9 L Active Medications Generic Name Dose Route Start Last Admin Trade Name Freq PRN Reason Stop Dose Admin Acetaminophen 650 mg 03/02/17 20:48 03/04/17 02:01 Tylenol - PO 650 mg Q4H PRN Administration FEVER Allopurinol 100 mg 02/18/17 11:00 03/08/17 10:36 Zyloprim - PO 100 mg DAILY TABBY Administration Amlodipine Besylate 5 mg 02/18/17 10:00 03/08/17 10:36 Norvasc - PO 5 mg DAILY TABBY Administration Colchicine 0.6 mg 03/03/17 10:00 03/08/17 10:36 Colcrys - PO 0.6 mg DAILY TABBY Administration Docusate Sodium 100 mg 02/17/17 22:00 03/08/17 10:37 Colace - PO Not Given BID TABBY Enoxaparin Sodium 40 mg 02/25/17 12:45 03/08/17 10:36 Lovenox - SQ 40 mg DAILY TABBY Administration IV Flush 8 ml 03/08/17 14:21 Picc Line Flush IVPUSH PRN PRN Protocol Ceftriaxone Sodium 2 gm/ 100 mls @ 200 mls/hr 02/22/17 15:00 03/08/17 10:36 Dextrose IVPB 200 mls/hr DAILY TABBY Administration Lactobacillus Acidophilus 1 tab 02/18/17 10:00 03/08/17 10:36 Bacid - PO 1 tab DAILY TABBY Administration Lactulose 20 gm 03/03/17 14:30 Cephulac (Oral Use) PO TID PRN CONSTIPATION Methyl Salicylate 1 applic 02/22/17 10:00 03/08/17 10:37 Hilario-Sheppard - TP Not Given BID TABBY Metoprolol Succinate 50 mg 02/18/17 10:57 03/08/17 10:36 Toprol Xl - PO 50 mg DAILY TABBY Administration Ondansetron HCl 4 mg 02/17/17 15:03 Zofran Injection IVPB Q6H PRN NAUSEA Oxycodone HCl 10 mg 03/07/17 18:48 03/08/17 14:47 Roxicodone - PO 10 mg Q6H PRN Administration PAIN Polyethylene Glycol 17 gm 02/18/17 10:00 03/08/17 10:36 Miralax (For Daily Use) - PO Not Given DAILY [facility] ASSESSMENT/PLAN: Patient is a 71 year old male admitted for evaluation of his right swollen arm. He was found to have a septic right shoulder joint cellulitis and treated with Ceftriaxone 2 gram daily. ID: Septic Right shoulder joint with cellulitis - improving A/P: On Rocephin since 02/22/2017 Blood cultures negative, remains afebrile, WBC stable MRI of right shoulder pending ID following PICC line likely in the a.m. Will need outpatient ortho follow up Right Lower extremity with gout exacerbation A/P: On colchicine and allopurinol Pain management with oxycodone Monitor pain Renal: ALBER A/P: monitor bun/creat Creat improving at 1.3 today Cardiology: Hypertension - chronic A/P: On Toprol xl and Norvasc Hold Lisinopril secondary to renal function Prophylaxis: Lovenox for DVT, Bacid for GI Disposition: Possible PICC line in a.m. then d/c home with ortho followup Visit type - Emergency Visit Emergency Visit: Yes ED Registration Date: 02/17/17 Care time: The patient presented to the Emergency Department on the above date and was hospitalized for further evaluation of their emergent condition. - New Patient This patient is new to me today: Yes Date on this admission: 03/08/17 - Critical Care Critical Care patient: No - Discharge Referral Referred to [facility] No
[2017-03-08] MEDS ORDERED: ZOLPIDEM TARTRATE 5 MG TABLET PO PRN (21:13)
[2017-03-09] MEDS: oxyCODONE HCL 5 MG TABLET PO PRN (01:08)
[2017-03-09 08:21] LABS: BASOPHIL 2.1 % (0-2.0); EOSINOPHIL 1.5 % (0-4.5); MCH 27.3 pg (25.7-33.7); MCHC 32.2 g/dl (32.0-35.9); MEAN CELL VOLUME 84.6 fl (80-96); MEAN PLT VOLUME 7.7 fl (7.5-11.1); NEUTROPHILS 63.4 % (42.8-82.8); PLATELET COUNT 825 K/MM3 (134-434); RDW 15.3 % (11.9-15.9); WHITE BLOOD COUNT 7.3 K/mm3 (4.0-10.0)
[2017-03-09 08:50] LABS: ALK PHOS 134 U/L (45-117); ANION GAP 6 (8-16); BILIRUBIN,TOTAL 0.1 mg/dL (0.2-1.0); CALCIUM 9.2 mg/dL (8.5-10.1); CO2 29 mmol/L (21-32); CREATININE 1.3 mg/dL (0.7-1.3); GLUCOSE,RANDOM 82 mg/dL (74-106); SGOT/AST 29 U/L (15-37); SGPT/ALT 40 U/L (12-78); TOT PROT 6.3 g/dl (6.4-8.2)
[2017-03-09] MEDS: METHYL SALICYLATE/MENTHOL OINT 30 GM TUBE TP SCH (10:44)
[2017-03-09] MEDS: POLYETHYLENE GLYCOL 3350 119 GM BTL PO SCH (10:45)
[2017-03-09] MEDS: DOCUSATE SODIUM 100 MG CAPSULE (FP) PO SCH (10:45)
[2017-03-09] MEDS ORDERED: DEXTROSE 5%-WATER 100 ML IVPB ONE (10:53)
[2017-03-09] MEDS ORDERED: PT OWN MED DRAWER 7, Y5N ONE (10:53)
[2017-03-09] MEDS: LACTOBACILLUS ACIDOPHILUS 1 EACH TAB (FP) PO SCH (11:12)
[2017-03-09] MEDS: CEFTRIAXONE 2 GM in DEXTROSE 5%-WATER 100 ML IVPB SCH (11:12)
[2017-03-09] MEDS: METOPROLOL SUCCINATE 50 MG TAB.SR.24H (FP) PO SCH (11:12)
[2017-03-09] MEDS: COLCHICINE 0.6 MG TABLET (FP) PO SCH (11:12)
[2017-03-09] MEDS: ENOXAPARIN NA (PORCINE) 40 MG/0.4 ML DISP.SYRIN SQ SCH (11:12)
[2017-03-09] MEDS: amLODIPine BESYLATE 5 MG TABLET (FP) PO SCH (11:12)
[2017-03-09] MEDS: ALLOPURINOL 100 MG TABLET (FP) PO SCH (11:13)
--- NOTE | 2017-03-09 12:58 | PN ---
Progress Note, Physician History of Present Illness: patient doing well no issues repeat mri to be done as patient got the wrong shoulder done picc line in place - Current Medication List Current Medications: Active Medications Acetaminophen (Tylenol -) 650 mg PO Q4H PRN PRN Reason: FEVER Last Admin: 03/04/17 02:01 Dose: 650 mg Allopurinol (Zyloprim -) 100 mg PO DAILY [facility] Last Admin: 03/09/17 11:13 Dose: 100 mg Amlodipine Besylate (Norvasc -) 5 mg PO DAILY [facility] Last Admin: 03/09/17 11:12 Dose: 5 mg Colchicine (Colcrys -) 0.6 mg PO DAILY [facility] Last Admin: 03/09/17 11:12 Dose: 0.6 mg Docusate Sodium (Colace -) 100 mg PO BID [facility] Last Admin: 03/09/17 10:45 Dose: Not Given Enoxaparin Sodium (Lovenox -) 40 mg SQ DAILY [facility] Last Admin: 03/09/17 11:12 Dose: 40 mg IV Flush (Picc Line Flush) 8 ml IVPUSH PRN PRN PRN Reason: Protocol Last Admin: 03/09/17 11:19 Dose: 8 ml Ceftriaxone Sodium 2 gm/ (Dextrose) 100 mls @ 200 mls/hr IVPB DAILY [facility] Last Admin: 03/09/17 11:12 Dose: 200 mls/hr Lactobacillus Acidophilus (Bacid -) 1 tab PO DAILY [facility] Last Admin: 03/09/17 11:12 Dose: 1 tab Lactulose (Cephulac (Oral Use)) 20 gm PO TID PRN PRN Reason: CONSTIPATION Methyl Salicylate (Hilario-Sheppard -) 1 applic TP BID [facility] Last Admin: 03/09/17 10:44 Dose: Not Given Metoprolol Succinate (Toprol Xl -) 50 mg PO DAILY [facility] Last Admin: 03/09/17 11:12 Dose: 50 mg Ondansetron HCl (Zofran Injection) 4 mg IVPB Q6H PRN PRN Reason: NAUSEA Oxycodone HCl (Roxicodone -) 10 mg PO Q6H PRN PRN Reason: PAIN Last Admin: 03/09/17 01:08 Dose: 10 mg Polyethylene Glycol (Miralax (For Daily Use) -) 17 gm PO DAILY [facility] Last Admin: 03/09/17 10:45 Dose: Not Given Zolpidem Tartrate (Ambien -) 5 mg PO HS PRN PRN Reason: INSOMNIA Last Admin: 03/08/17 21:28 Dose: 5 mg - Objective Vital Signs: Vital Signs Temperature 97.6 F 03/09/17 06:00 Pulse Rate 86 03/09/17 06:00 Respiratory Rate 20 03/09/17 09:00 Blood Pressure 148/76 03/09/17 06:00 O2 Sat by Pulse Oximetry (%) 99 03/09/17 09:00 Constitutional: Yes: No Distress, Calm Cardiovascular: Yes: Regular Rate and Rhythm Respiratory: Yes: Regular, CTA Bilaterally Gastrointestinal: Yes: Normal Bowel Sounds, Soft Musculoskeletal: Yes: WNL Extremities: Yes: Other (minimal movement of the rt arm) Neurological: Yes: Alert, Oriented Psychiatric: Yes: Alert, Oriented Labs: CBC, BMP 03/09/17 06:55 03/09/17 06:55 Assessment/Plan Problem List - Problems (1) Cellulitis of multiple sites of upper limb and shoulder Code(s): L03.119 - CELLULITIS OF UNSPECIFIED PART OF LIMB (2) ALBER (acute kidney injury) Code(s): N17.9 - ACUTE KIDNEY FAILURE, UNSPECIFIED (3) CKD (chronic kidney disease) Code(s): N18.9 - CHRONIC KIDNEY DISEASE, UNSPECIFIED Qualifiers: Chronic kidney disease stage: stage 3 (moderate) Qualified Code(s): N18.3 - Chronic kidney disease, stage 3 (moderate) (4) Elevated liver enzymes Code(s): R74.8 - ABNORMAL LEVELS OF OTHER SERUM ENZYMES (5) CAD (coronary artery disease) Code(s): I25.10 - ATHSCL HEART DISEASE OF [place] CORONARY ARTERY W/O ANG PCTRS (6) Hypertension Code(s): I10 - ESSENTIAL (PRIMARY) HYPERTENSION (7) Gout Code(s): M10.9 - GOUT, UNSPECIFIED ortho note reviewed plan continue abx patient should get another 15 days of iv abx from tomorrow mri to be re done will see what report shows
--- NOTE | 2017-03-09 13:53 | PN ---
Progress Note (short form) - Note Progress Note: Renal follow up for ALBER vs CKD Pt seen and examined at the bedside awake and alert has stiffness in the shoulder pain in foot is improved but still does not feel normal no fever or chills Vital Signs Temperature 97.6 F 03/09/17 06:00 Pulse Rate 86 03/09/17 06:00 Respiratory Rate 20 03/09/17 09:00 Blood Pressure 148/76 03/09/17 06:00 O2 Sat by Pulse Oximetry (%) 99 03/09/17 09:00 Intake & Output 03/06/17 03/07/17 03/08/17 03/09/17 23:59 23:59 23:59 23:59 Intake Total 1550 1500 1190 Balance 1550 1500 1190 Gen: NAD CVS: RRR Lungs: CTA Abd: soft NT/ND Ext: no edema CBC, BMP 03/09/17 06:55 03/09/17 06:55 Current Medications Acetaminophen (Tylenol -) 650 mg PO Q4H PRN PRN Reason: FEVER Last Admin: 03/04/17 02:01 Dose: 650 mg Allopurinol (Zyloprim -) 100 mg PO DAILY [facility] Last Admin: 03/09/17 11:13 Dose: 100 mg Amlodipine Besylate (Norvasc -) 5 mg PO DAILY [facility] Last Admin: 03/09/17 11:12 Dose: 5 mg Colchicine (Colcrys -) 0.6 mg PO DAILY [facility] Last Admin: 03/09/17 11:12 Dose: 0.6 mg Docusate Sodium (Colace -) 100 mg PO BID [facility] Last Admin: 03/09/17 10:45 Dose: Not Given Enoxaparin Sodium (Lovenox -) 40 mg SQ DAILY [facility] Last Admin: 03/09/17 11:12 Dose: 40 mg IV Flush (Picc Line Flush) 8 ml IVPUSH PRN PRN PRN Reason: Protocol Last Admin: 03/09/17 11:19 Dose: 8 ml Ceftriaxone Sodium 2 gm/ (Dextrose) 100 mls @ 200 mls/hr IVPB DAILY [facility] Last Admin: 03/09/17 11:12 Dose: 200 mls/hr Lactobacillus Acidophilus (Bacid -) 1 tab PO DAILY [facility] Last Admin: 03/09/17 11:12 Dose: 1 tab Lactulose (Cephulac (Oral Use)) 20 gm PO TID PRN PRN Reason: CONSTIPATION Methyl Salicylate (Hilario-Sheppard -) 1 applic TP BID [facility]BY Last Admin: 03/09/17 10:44 Dose: Not Given Metoprolol Succinate (Toprol Xl -) 50 mg PO DAILY [facility] Last Admin: 03/09/17 11:12 Dose: 50 mg Ondansetron HCl (Zofran Injection) 4 mg IVPB Q6H PRN PRN Reason: NAUSEA Oxycodone HCl (Roxicodone -) 10 mg PO Q6H PRN PRN Reason: PAIN Last Admin: 03/09/17 01:08 Dose: 10 mg Polyethylene Glycol (Miralax (For Daily Use) -) 17 gm PO DAILY [facility] Last Admin: 03/09/17 10:45 Dose: Not Given Zolpidem Tartrate (Ambien -) 5 mg PO HS PRN PRN Reason: INSOMNIA Last Admin: 03/08/17 21:28 Dose: 5 mg A/P 71 year old gentleman with PMhx of HTN, Gout, CAD s/p PCI and stenting, CKD ( unknown baseline Cr), 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 #Acute on Chronic Renal Insufficiency with hyperkalemia Renal function and potassium remains improve and stable continue moderate K restriction oral intake as tolerated would avoid NSAID use if possible Trend BUN/Cr while inpatient #Joint pain/Joint effusion/Septic Joint Pain management as per PMD/Rhem/Ortho continue Abx as per ID #Suspected Gout flare in foot s/p rheum eval continue allopurinol, can resume hold dose on discharge Given stable renal function will sign off case at this time Thank you for allowing us to take part in the care of this patient Edward Haddad DO Problem List - Problems (1) ALBER (acute kidney injury) Code(s): N17.9 - ACUTE KIDNEY FAILURE, UNSPECIFIED (2) CKD (chronic kidney disease) Code(s): N18.9 - CHRONIC KIDNEY DISEASE, UNSPECIFIED Qualifiers: Qualified Code(s): N18.3 - Chronic kidney disease, stage 3 (moderate) (3) Elevated liver enzymes Code(s): R74.8 - ABNORMAL LEVELS OF OTHER SERUM ENZYMES (4) Septic joint of right shoulder region Code(s): M00.9 - PYOGENIC ARTHRITIS, UNSPECIFIED (5) Abdominal pain Code(s): R10.9 - UNSPECIFIED ABDOMINAL PAIN (6) Azotemia Code(s): R79.89 - OTHER SPECIFIED ABNORMAL FINDINGS OF BLOOD CHEMISTRY
--- NOTE | 2017-03-09 13:54 | PN ---
Progress Note (short form) - Note Progress Note: Pt not in the room. In MRI. Spoke to , reportedly is going home today, confirmed from [employer] was following for thrombocytosis, which is reactive and now on the down trend. OP CBC monitoring recommended. No Heme Inpatient Rx needed.
--- NOTE | 2017-03-09 14:09 | DS ---
Physical Examination Vital Signs: Vital Signs Temperature 36.4 C 03/09/17 06:00 Pulse Rate 86 03/09/17 06:00 Respiratory Rate 20 03/09/17 09:00 Blood Pressure 148/76 03/09/17 06:00 O2 Sat by Pulse Oximetry (%) 99 03/09/17 09:00 Constitutional: Yes: Well Nourished, No Distress, Calm Cardiovascular: Yes: Regular Rate and Rhythm. No: Gallop, Murmur, Rub Respiratory: Yes: Regular, CTA Bilaterally. No: Rales, Rhonchi, Wheezes Gastrointestinal: Yes: Normal Bowel Sounds, Soft. No: Distention, Tenderness Extremities: Yes: WNL Edema: Yes Edema: RUE: 1+ (shoulder) Labs: CBC, BMP 03/09/17 06:55 03/09/17 06:55 Discharge Summary Reason For Visit: RIGHT SHOULDER CELLULITIS VERSUS SEPTIC JOINT Current Active Problems ALBER (acute kidney injury) (Acute) CKD (chronic kidney disease) (Acute) Cellulitis of multiple sites of upper limb and shoulder (Acute) Elevated liver enzymes (Acute) Pain in right ankle (Acute) Septic joint of right shoulder region (Acute) Hospital Course: (1) Septic R shoulder joint with cellulitis Code(s): L03.119 - CELLULITIS OF UNSPECIFIED PART OF LIMB (2) ALBER (acute kidney injury) Code(s): N17.9 - ACUTE KIDNEY FAILURE, UNSPECIFIED (3) CKD (chronic kidney disease) Code(s): N18.9 - CHRONIC KIDNEY DISEASE, UNSPECIFIED Qualifiers: Chronic kidney disease stage: stage 3 (moderate) Qualified Code(s): N18.3 - Chronic kidney disease, stage 3 (moderate) (4) Elevated liver enzymesnce Code(s): R74.8 - ABNORMAL LEVELS OF OTHER SERUM ENZYMES (5) CAD (coronary artery disease) Code(s): I25.10 - ATHSCL HEART DISEASE OF [place] CORONARY ARTERY W/O ANG PCTRS (6) Hypertension Code(s): I10 - ESSENTIAL (PRIMARY) HYPERTENSION (7) Gout Code(s): M10.9 - GOUT, UNSPECIFIED (8) Hyperkalemia (9) Elevated platelets Mr Jones is a 72 year old male who comes in with cellulitis of the R arm and was found to have a septic joint. He was admitted to the hospital and seen by both ID and orthopedic surgery. He was started on broad spectrum antibiotics and underwent joint aspiration. Aspiration came back positive for group b strep, started on high dose rocephin and will be continued as an outpatient. MRI of the shoulder shows further effusion, will need drainage as an outpatient. He had elevation of platelets to over 1 x 10^6, seen by hematology and was felt was secondary to sepsis. This has significantly improved after treatment. Also with elevated LFTs, seen by GI and improved with treatment as well. Currently he is stable for discharge home with home antibiotics and close follow up with ID and ortho. 41 minutes spent in preparation of this discharge Condition: Stable - Instructions Diet, Activity, Other Instructions: resume previous diet and activity PICC line care as advised Referrals: Bety Ivy MD [Staff Physician] - Clay Reddy MD [Primary Care Provider] - Ike Davison MD [Staff Physician] - Disposition: VNS/HOME HEALTH CARE - Home Medications Comprehensive Discharge Medication List: Ambulatory Orders Aspirin Coated [Ecotrin -] 81 mg PO DAILY 01/20/13 Amlodipine Besylate [Norvasc -] 5 mg PO DAILY 02/27/14 Zolpidem Tartrate [Ambien] 5 mg PO HS PRN 03/01/14 Allopurinol [Zyloprim -] 100 mg PO DAILY #30 tab 03/09/17 Ceftriaxone Na/Dextrose,Iso [Ceftriaxone 2 gm Piggyback] 2 gm IV DAILY #15 [email or web address] 03/09/17 Colchicine [Colcrys -] 0.6 mg PO DAILY #30 tablet 03/09/17 Metoprolol Succinate [Toprol XL -] 50 mg PO DAILY #30 tab.sr 03/09/17 Oxycodone HCl [Roxicodone -] 10 mg PO Q6H PRN #20 tablet MDD 40mg 03/09/17
[2017-03-09 15:18] VITALS: BP 134/81; PULSE 90; TEMP 97.8
== END 2017-03-09 15:07 | disposition home health service (06) | DRG 344 ==
LOC: JERFT 08:21 → JER 08:21 → JERBED 13:03 → J8W 15:39
PROVIDERS: ADMIT Internal Medicine; ATTEND Internal Medicine
PROC: 0R9J3ZZ Drainage of Right Shoulder Joint, Percutaneous Approach (ICD-10-PCS; principal; 2017-02-19)
PROC: 0R9J3ZZ Drainage of Right Shoulder Joint, Percutaneous Approach (ICD-10-PCS; 2017-03-01)
DX: M00.211 Other streptococcal arthritis, right shoulder (principal); L03.113 Cellulitis of right upper limb; M10.9 Gout, unspecified; Z95.5 Presence of coronary angioplasty implant and graft; I25.10 Atherosclerotic heart disease of native coronary artery without angina pectoris; K21.9 Gastro-esophageal reflux disease without esophagitis; I12.9 Hypertensive chronic kidney disease with stage 1 through stage 4 chronic kidney disease, or unspecified chronic kidney disease; N18.3 Chronic kidney disease, stage 3 (moderate); N17.9 Acute kidney failure, unspecified; R74.8 Abnormal levels of other serum enzymes; E87.5 Hyperkalemia; B95.1 Streptococcus, group B, as the cause of diseases classified elsewhere; M25.411 Effusion, right shoulder; Z98.890 Other specified postprocedural states; D63.8 Anemia in other chronic diseases classified elsewhere; E88.09 Other disorders of plasma-protein metabolism, not elsewhere classified; D47.3 Essential (hemorrhagic) thrombocythemia; Z87.891 Personal history of nicotine dependence
CPT/HCPCS: 36415; 36569; 73030-TC-RT; 73200-TC-RT; 73218-TC-LT; 73218-TC-RT; 73610-TC-RT; 73630-TC-RT; 76705-TC; 76775-TC; 76856-TC; 77001-TC; 78315-TC; 80048; 80053; 80076; 81003; 81015; 82150; 82570; 82728; 82945; 82977; 83540; 83550; 83615; 83690; 83735; 84100; 84156; 84157; 84300; 84540; 84550; 85025; 85651; 86038; 86140; 86618; 86704; 86706; 86708; 86803; 87040; 87070; 87075; 87086; 87186; 87205; 87207; 87340; 89051; 89060; 93005; 93010; 99284-25; A9503; C1751; G0480

== ENCOUNTER 2017-11-09 09:40 | Emergency (ER) | payer OTHER, BC ==
[2017-11-09 09:47] VITALS: TEMP 98; BMI 27.1
--- NOTE | 2017-11-09 10:27 | PDOC ---
History of Present Illness <Jose Kaur - Last Filed: 11/09/17 17:13> - General History Source: Patient - History of Present Illness Occurred: reports: this morning Pain Location: reports: lower extremity Method of Injury: Yes: fall <Madonna VargasSorinAinsley - Last Filed: 11/09/17 19:01> - General Chief Complaint: Injury Stated Complaint: INJURY, FALL Time Seen by Provider: 11/09/17 10:15 Past History <Jose Kaur - Last Filed: 11/09/17 17:13> - Past Medical History Anemia: No Cardiac Disorders: Yes (PT HAD 6 STENTS 2010) COPD: No HTN: Yes - Surgical History Abdominal Surgery: Yes (BILAT INGUINAL HERNIA REPAIR) Cardiac Surgery: Yes (ANGIOPLASTY 6 STENTS -SEE ABOVE) Orthopedic Surgery: Yes ('73 DEBORAH RIGHT LEG) - Suicide/Smoking/Psychosocial Hx Smoking History: Never smoked Have you smoked in the past 12 months: Yes Number of Cigarettes Smoked Daily: 2 If you are a former smoker, when did you quit?: stopped 4 yrs ago Information on smoking cessation initiated: No 'Breaking Loose' booklet given: 09/30/13 Hx Alcohol Use: No Drug/Substance Use Hx: No Substance Use Type: None Hx Substance Use Treatment: No <Madonna VargasSorinAinsley - Last Filed: 11/09/17 19:01> - Past Medical History Allergies/Adverse Reactions: Allergies Allergy/AdvReac Type Severity Reaction Status Date / Time No Known Allergies Allergy Verified 11/09/17 09:42 Home Medications: Ambulatory Orders Aspirin Coated [Ecotrin -] 81 mg PO DAILY 01/20/13 Amlodipine Besylate [Norvasc -] 5 mg PO DAILY 02/27/14 Zolpidem Tartrate [Ambien] 5 mg PO HS PRN 03/01/14 Allopurinol [Zyloprim -] 300 mg PO DAILY 11/09/17 Lisinopril 20 mg PO DAILY 11/09/17 Metoprolol Succinate [Toprol XL -] 25 mg PO DAILY 11/09/17 Tramadol HCl 50 mg PO Q6H #15 tablet MDD 200 mg 11/09/17 Review of Systems - Review of Systems HEENTM: No: Blurred Vision Respiratory: No: Shortness of Breath Cardiac (ROS): No: Chest Pain, Lightheadedness, Palpitations, Syncope Musculoskeletal: Yes: Joint Pain, Joint Swelling. No: Back Pain, Neck Pain Neurological: No: Headache, Dizziness <Charis Vargas - Last Filed: 11/09/17 19:01> *Physical Exam - Vital Signs Last Vital Signs Temp Pulse Resp BP Pulse Ox 98.0 F 100 H 18 130/77 100 11/09/17 09:43 11/09/17 09:43 11/09/17 09:43 11/09/17 09:43 11/09/17 09:43 <VincentJose - Last Filed: 11/09/17 17:13> - Vital Signs Last Vital Signs Temp Pulse Resp BP Pulse Ox 98.0 F 100 H 18 130/77 100 11/09/17 09:43 11/09/17 09:43 11/09/17 09:43 11/09/17 09:43 11/09/17 09:43 - Physical Exam General Appearance: Yes: Appropriately Dressed. No: Apparent Distress HEENT: positive: Normal Voice Neck: positive: Supple. negative: Tender, Decreased range of motion Respiratory/Chest: negative: Respiratory Distress Gastrointestinal/Abdominal: positive: Soft. negative: Tender Extremity: positive: Other (externally rotated L foot/ankle w/ sig sweeling to medial L ankle/foot, pulses and sensation intact w/ warm skin) Integumentary: positive: Dry, Warm Neurologic: positive: Fully Oriented, Alert, Normal Mood/Affect <Charis Vargas - Last Filed: 11/09/17 19:01> Moderate Sedation - Procedure Monitoring Vital Signs: No dentures. No allergies to sedatives in past procedures. Mallampati score III , with visualization of soft palate and base of uvuvla. ASA score of II, patient age older than 65 with mild systemic disease, with good control. No immediate life threatening condition. MR 0.27-0.4 %. Time out performed. Patient tolerated procedure and sedation well with stable vitals signs throughout. 8 ml Propofol pushed slowly through IV with saline flushed through following admin. Time to sedation 20 seconds. No complications. Vital Signs Temp Pulse Resp BP Pulse Ox 98.0 F 100 H 18 130/77 100 11/09/17 09:43 11/09/17 09:43 11/09/17 09:43 11/09/17 09:43 11/09/17 09:43 - Post Procedure Assessment Tolerated procedure well: Yes Complications [comment]: Mallampati score III, with visualization of soft palate and base of uvuvla. Was a reversal agent used?: No Patient evaluation: Awake, alert and oriented, Vital signs reviewed, Cardiopulmonary exam normal, Pain controlled Printed Discharge Instructions given: Yes <Jose Kaur - Last Filed: 11/09/17 17:13> - Procedure Monitoring Vital Signs: Vital Signs Temp Pulse Resp BP Pulse Ox 98.0 F 100 H 18 130/77 100 11/09/17 09:43 11/09/17 09:43 11/09/17 09:43 11/09/17 09:43 11/09/17 09:43 <Charis Vargas - Last Filed: 11/09/17 19:01> Procedures - Joint Reduction Left Pre-Procedure NV Exam: normal (Mallampati score III, with visualization of soft palate and base of uvuvla. ASA score of II, patient age older than 65 with mild systemic disease, with good control. No immediate life threatening condition. MR 0.27-0.4 %) Conscious Sedation: Yes Reduction Attempts: 1 Anesthetic: 1% Lidocaine Amount (mL): 3 Post-Procedure NV Exam: normal Complications: No Post Joint Reduction Film: joint reduced <Jose Kaur - Last Filed: 11/09/17 17:13> ED Treatment Course - LABORATORY CBC & Chemistry Diagram: 11/09/17 12:58 11/09/17 12:58 - ADDITIONAL ORDERS Additional order review: Laboratory Results 11/09/17 11/09/17 11/09/17 13:00 12:58 12:58 PT with INR 11.30 INR 1.00 Sodium 130 L Potassium 5.9 H D Chloride 101 Carbon Dioxide 26 Anion Gap 3 L BUN 43 H D Creatinine 2.1 H D Creat Clearance w eGFR 31.03 Random Glucose 82 Calcium 9.0 Total Bilirubin 0.4 D AST 39 H D ALT 19 D Alkaline Phosphatase 75 D Creatine Kinase 347 H Creatine Kinase Index 1.1 CK-MB (CK-2) 3.979 H Troponin I < 0.02 Total Protein 7.2 Albumin 3.9 D Urine Color Ltyellow Urine Appearance Clear Urine pH 6.0 Ur Specific [place] 1.011 Urine Protein 2+ H Urine Glucose (UA) Negative Urine Ketones Negative Urine Blood Negative Urine Nitrite Negative Urine Bilirubin Negative Urine Urobilinogen Negative Ur Leukocyte Esterase Negative Urine WBC (Auto) <1 Urine RBC (Auto) <1 Hyaline Casts 1 11/09/17 12:58 RBC 3.71 L MCV 92.3 MCHC 32.4 RDW 16.1 H MPV 9.1 D Neutrophils % 79.1 D Lymphocytes % 12.5 D Monocytes % 7.5 Eosinophils % 0.2 D Basophils % 0.7 <Jose Kaur - Last Filed: 11/09/17 17:13> - LABORATORY CBC & Chemistry Diagram: 11/09/17 12:58 11/09/17 12:58 - RADIOLOGY Radiology Studies Ordered: Category Date Time Status HEAD CT WITHOUT CONTRAST [CT] Stat CT Scan 11/09/17 10:16 Ordered <Charis Vargas - Last Filed: 11/09/17 19:01> Medical Decision Making - Medical Decision Making 11/09/17 10:20 72-year-old, h/o gout, HTN, CAD, CKD, s/p R rotator surgery in 2017, here w/ L foot/ankle s/p fall this am. States he tumbled off ~4 ft ladder this am, states "me and the ladder fell" to the ground. Adamant he did not hit head and but does have a noticeable abrasion to L scalp. Denies JON, dizziness, n/v. Denies neck/back/abd pain. No cp or dizziness prior to fall. Only reports L ankle pain and swelling and has not been able to bear weight See exam R/o ankle foot/ankle fx -pain control -XR -Possible admission as unable to bear weight 11/09/17 15:57 Possible subtalar dislocation per KATHY Roman of ortho, rec CT. 11/09/17 16:54 Dr Harvey of orthopedics at bedside to reduce ankle. Pt signed consent for procedural sedation. Placed on monitor with nasal cannula in place. ED attending, resident, nurse and orthopedic at bedside currently 11/09/17 19:00 Pt signed out to ZOIL[facility] lim CT report <Charis Vargas - Last Filed: 11/09/17 19:01> *DC/Admit/Observation/Transfer <Jose Kaur - Last Filed: 11/09/17 17:13> <Charis Vargas - Last Filed: 11/09/17 19:01> Diagnosis at time of Disposition: Dislocation of subtalar joint Qualifiers: Encounter type: initial encounter Laterality: left Qualified Code(s): S93.315A - Dislocation of tarsal joint of left foot, initial encounter - Discharge Dispostion Condition at time of disposition: Improved - Prescriptions Prescriptions: Tramadol HCl 50 mg PO Q6H #15 tablet MDD 200 mg - Referrals Referrals: Clay Reddy MD [Primary Care Provider] - Dharmesh Harvey MD [Staff Physician] - - Patient Instructions Printed Discharge Instructions: DI for Ankle Dislocation Additional Instructions: Your treated for an ankle dislocation. As discussed with orthopedist, please elevate extremity frequently at home. Please use crutches for assistance with ambulation but you are allowed to place forefoot on floor to assist with balance. Please take medication as needed for pain. Please follow-up with Dr. Skyler Harvey in one week - Post Discharge Activity
[2017-11-09] MEDS ORDERED: morphine CARPU-JECT 4 MG/1 ML DISP.SYRIN IVPUSH ONE ×3 (11:27→20:08)
[2017-11-09] MEDS ORDERED: morphine SULFATE 4 MG/ML VIAL ONE ×2 (12:28→15:01)
[2017-11-09 13:08] LABS: BASO % 0.7 % (0-2.0); EOS % 0.2 % (0-4.5); HEMATOCRIT 34.3 % (35.4-49); HEMOGLOBIN 11.1 GM/dL (11.7-16.9); LYMPH % 12.5 % (8-40); MCH 29.9 pg (25.7-33.7); MCHC 32.4 g/dl (32.0-35.9); MEAN CELL VOLUME 92.3 fl (80-96); MEAN PLT VOLUME 9.1 fl (7.5-11.1); MONO % 7.5 % (3.8-10.2); NEUT % 79.1 % (42.8-82.8); PLATELET COUNT 326 K/MM3 (134-434); RBC 3.71 M/mm3 (4.00-5.60); RDW 16.1 % (11.9-15.9); WHITE BLOOD COUNT 11.7 K/mm3 (4.0-10.0)
[2017-11-09 13:16] LABS: URINE APPEARANCE CLEAR; URINE BILIRUBIN NEGATIVE (<2.0 mg/dL); URINE BLOOD NEGATIVE (NEGATIVE); URINE COLOR LTYELLOW; URINE GLUCOSE (UA) NEGATIVE (NEGATIVE); URINE KETONE NEGATIVE (NEGATIVE); URINE LEUK ESTERASE NEGATIVE (NEGATIVE); URINE NITRITE NEGATIVE (NEGATIVE); URINE UROBILINOGEN NEGATIVE mg/dL (0.2-1.0)
[2017-11-09 13:32] LABS: URINE PROTEIN 2+ (NEGATIVE)
[2017-11-09 13:34] LABS: URINE HYALINE CAST 1 /lpf
[2017-11-09 14:23] LABS: CHLORIDE 101 mmol/L (98-107); SODIUM 130 mmol/L (136-145)
[2017-11-09 14:26] LABS: ALBUMIN 3.9 g/dl (3.4-5.0); ANION GAP 3 (8-16); BLOOD UREA NITROGEN 43 mg/dL (7-18); CO2 26 mmol/L (21-32); GLUCOSE,RANDOM 82 mg/dL (74-106)
[2017-11-09 14:28] LABS: POTASSIUM 5.9 mmol/L (3.5-5.1)
[2017-11-09 14:33] LABS: ALK PHOS 75 U/L (45-117); BILIRUBIN,TOTAL 0.4 mg/dL (0.2-1.0); CREATININE 2.1 mg/dL (0.7-1.3); SGPT/ALT 19 U/L (12-78); TOT PROT 7.2 g/dl (6.4-8.2)
[2017-11-09 14:34] LABS: SGOT/AST 39 U/L (15-37)
[2017-11-09 15:18] LABS: PROTHROMBIN TIME (PATIENT) 11.3 SEC (9.7-13.0)
--- NOTE | 2017-11-09 16:12 | EKG ---
Test Reason : Blood Pressure : / mmHG Vent. Rate : 092 BPM Atrial Rate : 092 BPM P-R Int : 172 ms QRS Dur : 114 ms QT Int : 352 ms P-R-T Axes : 053 014 042 degrees QTc Int : 435 ms NORMAL SINUS RHYTHM NORMAL ECG WHEN COMPARED WITH ECG OF 17-FEB-2017 14:41, NO SIGNIFICANT CHANGE WAS FOUND Confirmed by MD Hung Daniel ([id number]) on 11/09/2017 4:12:11 PM Referred By: Confirmed By:Babak Hung MD
[2017-11-09] MEDS ORDERED: LIDOCAINE HCL 1%, 10 MG/ML (20ML VIAL) ONE (16:32)
[2017-11-09] MEDS ORDERED: PROPOFOL 200 MG/20 ML VIAL IVPUSH ONE ×2 (16:39→16:56)
[2017-11-09] MEDS ORDERED: PROPOFOL 1,000,000 MCG/100 ML VIAL ONE (16:42)
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
[2017-11-09] MEDS ORDERED: HYDROmorphone HCL CARPU-JECT 2 MG/1 ML DISP.SYRIN IVPB ONE (19:00)
--- NOTE | 2017-11-09 19:50 | PDOC ---
*Physical Exam - Vital Signs Last Vital Signs Temp Pulse Resp BP Pulse Ox 98.0 F 100 H 18 130/77 100 11/09/17 09:43 11/09/17 09:43 11/09/17 09:43 11/09/17 09:43 11/09/17 09:43 - Physical Exam Cardiovascular: positive: Regular Rhythm, Regular Rate. negative: Murmur Musculoskeletal: positive: Normal Inspection. negative: CVA Tenderness Extremity: positive: Other (Splint in place post reduction. 2+ dorsalis pedis pulses present. Capillary refill less than 2 seconds. Full sensation and movement to his toes noted.) ED Treatment Course - LABORATORY CBC & Chemistry Diagram: 11/09/17 12:58 11/09/17 12:58 - ADDITIONAL ORDERS Additional order review: Laboratory Results 11/09/17 11/09/17 11/09/17 13:00 12:58 12:58 PT with INR 11.30 INR 1.00 Sodium 130 L Potassium 5.9 H D Chloride 101 Carbon Dioxide 26 Anion Gap 3 L BUN 43 H D Creatinine 2.1 H D Creat Clearance w eGFR 31.03 Random Glucose 82 Calcium 9.0 Total Bilirubin 0.4 D AST 39 H D ALT 19 D Alkaline Phosphatase 75 D Creatine Kinase 347 H Creatine Kinase Index 1.1 CK-MB (CK-2) 3.979 H Troponin I < 0.02 Total Protein 7.2 Albumin 3.9 D Urine Color Ltyellow Urine Appearance Clear Urine pH 6.0 Ur Specific [place] 1.011 Urine Protein 2+ H Urine Glucose (UA) Negative Urine Ketones Negative Urine Blood Negative Urine Nitrite Negative Urine Bilirubin Negative Urine Urobilinogen Negative Ur Leukocyte Esterase Negative Urine WBC (Auto) <1 Urine RBC (Auto) <1 Hyaline Casts 1 11/09/17 12:58 RBC 3.71 L MCV 92.3 MCHC 32.4 RDW 16.1 H MPV 9.1 D Neutrophils % 79.1 D Lymphocytes % 12.5 D Monocytes % 7.5 Eosinophils % 0.2 D Basophils % 0.7 Medical Decision Making - Medical Decision Making 11/09/17 20:34 A/P: 72-year-old male with dislocation Awaiting read of CAT scan of lower extremity for disposition. Review of labs reveals a potassium of 5.9. EKG, Kayexalate EKG is sinus rhythm with peaked T's in V4, V5. It has been explained to the patient that he has an elevated potassium and that it is dangerously high. Patient's spouse voiced her displeasure when I relayed the results. Patient is refusing Kayexalate at this time. *DC/Admit/Observation/Transfer Diagnosis at time of Disposition: Hyperkalemia Dislocation of subtalar joint Qualifiers: Encounter type: initial encounter Laterality: left Qualified Code(s): S93.315A - Dislocation of tarsal joint of left foot, initial encounter - Discharge Dispostion Disposition: ELOPED Condition at time of disposition: Stable - Prescriptions Prescriptions: Tramadol HCl 50 mg PO Q6H #15 tablet MDD 200 mg - Referrals Referrals: Clay Reddy MD [Primary Care Provider] - Dharmesh Harvey MD [Staff Physician] - - Patient Instructions Printed Discharge Instructions: DI for Ankle Dislocation Additional Instructions: Your treated for an ankle dislocation. As discussed with orthopedist, please elevate extremity frequently at home. Please use crutches for assistance with ambulation but you are allowed to place forefoot on floor to assist with balance. Please take medication as needed for pain. Please follow-up with Dr. Skyler Harvey in one week - Post Discharge Activity
[2017-11-09 19:54] VITALS: BP 155/82; PULSE 105
[2017-11-09] MEDS ORDERED: SODIUM POLYSTYRENE SULFONATE 15 GM/60 ML BOTTLE PO ONE (20:09)
[2017-11-09] MEDS ORDERED: morphine CARPU-JECT 2 MG/1 ML DISP.SYRIN ONE (20:13)
== END 2017-11-09 20:30 | disposition home or self-care (01) ==
LOC: JER 09:40
PROC: 0SSGXZZ Reposition Left Ankle Joint, External Approach (ICD-10-PCS; principal; 2017-11-09)
PROC: 2W3RX1Z Immobilization of Left Lower Leg using Splint (ICD-10-PCS; 2017-11-09)
DX: S93.315A Dislocation of tarsal joint of left foot, initial encounter (principal); W11.XXXA Fall on and from ladder, initial encounter; Y93.89 Activity, other specified; Y92.89 Other specified places as the place of occurrence of the external cause; Y99.8 Other external cause status; E87.5 Hyperkalemia; I25.10 Atherosclerotic heart disease of native coronary artery without angina pectoris; I10 Essential (primary) hypertension; Z95.5 Presence of coronary angioplasty implant and graft; Z87.891 Personal history of nicotine dependence
CPT/HCPCS: 27842; 36415; 70450-TC; 71045-TC-FY; 73560-TC-LT-FY; 73610-TC-LT-FY; 73630-TC-LT; 73700-TC-RT; 80053; 81003; 81015; 82550; 82553; 84484; 85025; 85610; 93005; 93010; 99283-25

== ENCOUNTER 2021-11-10 04:34 | Day surgery (SDC) | payer OTHER, BC ==
[2021-11-04 08:31] VITALS: BMI 25.1
[2021-11-10] MEDS ORDERED: MIDAZOLAM HCL 2 MG/2 ML SINGLE DOSE VIAL ONE (13:36)
[2021-11-10] MEDS ORDERED: KETOROLAC TROMETHAMINE 30 MG/1 ML VIAL ONE (13:36)
[2021-11-10] MEDS ORDERED: ROCURONIUM BROMIDE 50 MG/5 ML SYRINGE ONE (13:36)
[2021-11-10] MEDS ORDERED: DEXAMETHASONE SOD PHOSPHATE 4 MG/1 ML VIAL ONE (13:36)
[2021-11-10] MEDS ORDERED: LIDOCAINE HCL 2% 100 MG/5 ML DISP.SYRIN ONE (13:36)
[2021-11-10] MEDS ORDERED: FENTANYL CITRATE/PF 50 MCG/ML VIAL ONE ×3 (13:36)
[2021-11-10] MEDS ORDERED: PROPOFOL 20 ML ONE (13:36)
[2021-11-10] MEDS ORDERED: SUCCINYLCHOLINE CHLORIDE 200 MG/10 ML SYRINGE ONE (13:36)
[2021-11-10] MEDS ORDERED: SUGAMMADEX SODIUM 200 MG/2 ML VIAL ONE (15:24)
[2021-11-10] MEDS ORDERED: BUPIVACAINE HCL/PF 0.25% (2.5MG/ML) 10 ML VIAL ONE ×2 (15:36→16:00)
[2021-11-10] MEDS ORDERED: BUPIVACAINE HCL/PF 0.25% (2.5MG/ML) 10 ML VIAL IJ ONE (16:14)
[2021-11-10] MEDS ORDERED: ceFAZolin SODIUM 1 GM VIAL IVPB ONE (16:17)
[2021-11-10] MEDS ORDERED: ONDANSETRON 4 MG/2 ML VIAL IVPUSH PRN (18:34)
[2021-11-10] MEDS ORDERED: oxyCODONE HCL 5 MG TABLET PO PRN (18:34)
[2021-11-10] MEDS ORDERED: LACTATED RINGERS SOLUTION 1,000 ML IV SCH (18:45)
[2021-11-10 20:04] VITALS: TEMP 97.7
[2021-11-10 20:07] VITALS: BP 137/65; PULSE 70
== END 2021-11-10 19:30 | disposition home or self-care (01) ==
LOC: JASU-SURG 04:34
PROVIDERS: ATTEND Surgery
PROC: 0WQF4ZZ Repair Abdominal Wall, Percutaneous Endoscopic Approach (ICD-10-PCS; principal; 2021-11-10 14:30)
DX: K43.9 Ventral hernia without obstruction or gangrene (principal)
CPT/HCPCS: 94760

== ENCOUNTER 2022-11-30 08:14 | Day surgery (SDC) | payer OTHER, BC ==
[2022-11-27 08:48] VITALS: BMI 25.8
[2022-11-30] MEDS ORDERED: DEXAMETHASONE SOD PHOSPHATE/PF 10 MG/ML SDV ONE (08:32)
[2022-11-30] MEDS ORDERED: BUPIVACAINE HCL/PF 0.5% (5MG/ML) 10 ML VIAL ONE (08:32)
[2022-11-30] MEDS ORDERED: ROPIVACAINE HCL 0.5% 30ML VIAL ONE (08:32)
[2022-11-30] MEDS ORDERED: VANCOMYCIN 1,000 MG VIAL (RESTRICTED TO ID ONLY) ONE (08:38)
[2022-11-30] MEDS ORDERED: CEFAZOLIN 2 GM in DEXTROSE 5%-WATER - 100 ML IVPB ONE (09:00)
[2022-11-30] MEDS ORDERED: VANCOMYCIN 1,000 MG in DEXTROSE 5%-WATER - 250 ML IVPB ONE ×2 (09:30→23:20)
[2022-11-30] MEDS ORDERED: MIDAZOLAM HCL 2 MG/2 ML SINGLE DOSE VIAL ONE (09:37)
[2022-11-30] MEDS ORDERED: BUPIVACAINE HCL/PF 2.5 MG/ML - 30 ML VIAL IJ ONE (09:39)
[2022-11-30] MEDS ORDERED: BUPIVACAINE LIPOSOME/PF (EXPAREL) 266 MG/20 ML VIAL ONE (09:39)
[2022-11-30] MEDS ORDERED: BUPIVACAINE HCL/PF 0.5% (5 MG/ML) 30 ML VIAL IJ ONE (09:41)
[2022-11-30] MEDS ORDERED: TRANEXAMIC ACID 1000 MG/10 ML VIAL IVPUSH ONE (10:00)
[2022-11-30] MEDS ORDERED: PROPOFOL 20 ML ONE ×3 (11:26→12:20)
[2022-11-30] MEDS ORDERED: BUPIVICAINE 0.25%/MORPH PF/KETOROLAC - 51ML DISP.SYRINGE IA ONE (12:51)
[2022-11-30] MEDS ORDERED: MAG HYDROX/AL HYDROX/SIMETH 30 ML UNIT-DOSE CUP PO PRN (13:51)
[2022-11-30] MEDS ORDERED: ONDANSETRON 4 MG/2 ML VIAL IVPUSH PRN ×2 (13:51→14:02)
[2022-11-30] MEDS ORDERED: LACTATED RINGERS SOLUTION 1,000 ML IV SCH ×2 (14:00→14:15)
[2022-11-30] MEDS ORDERED: IBUPROFEN 800 MG/8 ML IJ IVPB PRN (14:02)
[2022-11-30] MEDS ORDERED: ACETAMINOPHEN 500 MG TABLET (FP) ONE (14:22)
[2022-11-30] MEDS: ACETAMINOPHEN 500 MG TABLET (FP) PO SCH ×5 (14:23→23:29)
[2022-11-30 15:50] VITALS: RESP 18
[2022-11-30] MEDS: oxyCODONE HCL 5 MG TABLET PO PRN ×3 (16:29→23:29)
[2022-11-30] MEDS: CEFAZOLIN SODIUM 2 GM in DEXTROSE 5%-WATER 100 ML IVPB SCH (19:31)
[2022-11-30] MEDS: SENNOSIDES/DOCUSATE COMBO (SENNA PLUS) TABLET (UD) PO SCH (21:04)
[2022-11-30] MEDS: GABAPENTIN 300 MG CAPSULE PO SCH (21:04)
[2022-11-30] MEDS ORDERED: VANCOMYCIN/WATER FOR INJ (PEG) 1,000 MG/200 ML BAG IVPB ONE (23:20)
[2022-12-01] MEDS: CEFAZOLIN SODIUM 2 GM in DEXTROSE 5%-WATER 100 ML IVPB SCH ×2 (02:39→11:58)
[2022-12-01] MEDS: ACETAMINOPHEN 500 MG TABLET (FP) PO SCH ×4 (06:15→23:45)
[2022-12-01 08:19] LABS: CALCIUM 8.2 mg/dl (8.5-10); CREATININE 3.3 mg/dl (0.55-1.3); POTASSIUM 5.1 mmol/L (3.5-5.1)
[2022-12-01 08:23] LABS: HEMATOCRIT 28.9 % (35.4-49); HEMOGLOBIN 9.3 G/dL (11.7-16.9); MCH 29.1 pg (25.7-33.7); MEAN CELL VOLUME 90.9 fl (80-96); PLATELET COUNT 381.3 10^3/uL (134-434); RBC 3.18 10^6/uL (4.00-5.60); RDW 15.9 % (11.9-15.9); WHITE BLOOD COUNT 6.2 10^3/uL (4.0-10.8)
[2022-12-01] MEDS ORDERED: LACTATED RINGERS SOLUTION 1,000 ML IV SCH ×2 (09:57→18:44)
[2022-12-01] MEDS ORDERED: MULTIVITAMINS (DAILY MVI) TABLET (FP) PO SCH (10:00)
[2022-12-01] MEDS ORDERED: amLODIPine BESYLATE 5 MG TABLET (FP) PO ONE (10:30)
[2022-12-01] MEDS: GABAPENTIN 300 MG CAPSULE PO SCH ×2 (10:31→22:25)
[2022-12-01] MEDS: PANTOPRAZOLE 40 MG TABLET PO SCH (10:31)
[2022-12-01] MEDS: ASPIRIN COATED 81 MG TABLET.EC PO SCH ×2 (10:31→22:25)
[2022-12-01] MEDS: SENNOSIDES/DOCUSATE COMBO (SENNA PLUS) TABLET (UD) PO SCH ×2 (10:31→22:25)
[2022-12-01 13:45] LABS: CREATININE, URINE RANDOM 151.6 mg/dL
[2022-12-01 16:37] LABS: CALCIUM 8.2 mg/dl (8.5-10); CREATININE 3.5 mg/dl (0.55-1.3); POTASSIUM 4.8 mmol/L (3.5-5.1)
[2022-12-01] MEDS: oxyCODONE HCL 5 MG TABLET PO PRN (23:44)
[2022-12-02] MEDS: ACETAMINOPHEN 500 MG TABLET (FP) PO SCH (06:18)
[2022-12-02] MEDS ORDERED: SODIUM CHLORIDE 1,000 ML IV SCH (07:30)
[2022-12-02 08:17] LABS: CALCIUM 7.6 mg/dl (8.5-10); CREATININE 3.4 mg/dl (0.55-1.3); POTASSIUM 4.7 mmol/L (3.5-5.1)
[2022-12-02] MEDS ORDERED: TAMSULOSIN HCL 0.4 MG CAP PO SCH (08:30)
[2022-12-02 08:54] LABS: BASO % 0.7 % (0-2.0); EOS % 0.8 % (0-4.5); HEMATOCRIT 24.6 % (35.4-49); MCH 28.8 pg (25.7-33.7); MCHC 32.3 g/dl (32.0-35.9); MEAN CELL VOLUME 89.2 fl (80-96); MEAN PLT VOLUME 9.3 fl (7.5-11.1); MONO % 11.7 % (3.8-10.2); NEUT % 73.8 % (42.8-82.8); PLATELET COUNT 243 10^3/uL (134-434); RBC 2.76 M/mm3 (4.00-5.60); RDW 15.5 % (11.9-15.9); WHITE BLOOD COUNT 5.4 K/mm3 (4.0-10.0)
[2022-12-02] MEDS: GABAPENTIN 300 MG CAPSULE PO SCH (09:10)
[2022-12-02] MEDS: oxyCODONE HCL 5 MG TABLET PO PRN (09:10)
[2022-12-02] MEDS: ASPIRIN COATED 81 MG TABLET.EC PO SCH (09:11)
[2022-12-02] MEDS: PANTOPRAZOLE 40 MG TABLET PO SCH (09:11)
[2022-12-02] MEDS: SENNOSIDES/DOCUSATE COMBO (SENNA PLUS) TABLET (UD) PO SCH (09:11)
[2022-12-02 10:00] VITALS: BP 129/50; PULSE 77; TEMP 98.2
== END 2022-12-02 11:56 | disposition home or self-care (01) ==
LOC: FM/S 08:14 → UNDOADMIN 08:14 → FASUSAT 08:14 → SUATTDRO 08:14 → EDSTATUS 10:30 → FM/S 11:27 → FASUSAT 12-02 11:56
PROVIDERS: ATTEND Internal Medicine
PROC: 8E0Y0CZ Robotic Assisted Procedure of Lower Extremity, Open Approach (ICD-10-PCS; 2022-11-30)
PROC: 0SRC0JA Replacement of Right Knee Joint with Synthetic Substitute, Uncemented, Open Approach (ICD-10-PCS; principal; 2022-11-30 11:36)
DX: M17.11 Unilateral primary osteoarthritis, right knee (principal); N17.9 Acute kidney failure, unspecified
CPT/HCPCS: 20985; 27447; C1776; S2900; 36415; 73560-TC-RT-FY; 80048; 82570; 84300; 84540; 85025; 85027; 88305-TC; 88311-TC; 94760; 97010-GP; 97116-GP; 97162-GP

== ENCOUNTER 2022-12-05 01:13 | Inpatient (IN) | payer OTHER, BC ==
[2022-12-05 01:22] VITALS: BMI 25.8
[2022-12-05 02:50] LABS: BASO % 0.3 % (0-2.0); EOS % 0.5 % (0-4.5); HEMATOCRIT 21.5 % (35.4-49); HEMOGLOBIN 7.1 GM/dL (11.7-16.9); LYMPH % 6.9 % (8-40); MCHC 33.1 g/dl (32.0-35.9); MEAN CELL VOLUME 87.5 fl (80-96); MEAN PLT VOLUME 8.4 fl (7.5-11.1); MONO % 7.9 % (3.8-10.2); NEUT % 84.4 % (42.8-82.8); PLATELET COUNT 298 10^3/uL (134-434); RBC 2.46 M/mm3 (4.00-5.60); RDW 15.6 % (11.9-15.9); WHITE BLOOD COUNT 5.9 K/mm3 (4.0-10.0)
[2022-12-05 03:19] LABS: ALBUMIN 1.6 g/dl (3.4-5.0); ANION GAP 9 MMOL/L (8-16); BLOOD UREA NITROGEN 43.9 mg/dL (7-18); CALCIUM 7.6 mg/dL (8.5-10.1); CHLORIDE 113 mmol/L (98-107); CO2 23 mmol/L (21-32); CREATININE 3.4 mg/dL (0.55-1.3); GLUCOSE,RANDOM 96 mg/dL (74-106); POTASSIUM 4.6 mmol/L (3.5-5.1); SGOT/AST 19 U/L (15-37); SODIUM 145 mmol/L (136-145)
[2022-12-05 03:20] LABS: BILIRUBIN,TOTAL 0.3 mg/dL (0.2-1)
[2022-12-05 03:21] LABS: TOT PROT 4.5 g/dl (6.4-8.2)
[2022-12-05 03:22] LABS: ALK PHOS 100 U/L (45-117)
[2022-12-05 03:28] LABS: SGPT/ALT < 6 U/L (13-61)
[2022-12-05] MEDS ORDERED: ACETAMINOPHEN 325 MG TABLET (FP) PO ONE (03:41)
[2022-12-05] MEDS: ASPIRIN COATED 81 MG TABLET.EC PO SCH ×2 (12:29→21:14)
[2022-12-05] MEDS: SODIUM CHLORIDE 1,000 ML IV SCH (14:05)
[2022-12-05 14:21] LABS: EPITHELIAL CELLS FEW /hpf
[2022-12-05] MEDS: ACETAMINOPHEN 325 MG TABLET (FP) PO PRN (14:28)
[2022-12-05] MEDS: DOCUSATE SODIUM 100 MG CAPSULE (FP) PO SCH ×2 (14:28→21:13)
[2022-12-05 19:54] LABS: HEMATOCRIT 23.3 % (35.4-49); HEMOGLOBIN 7.8 G/dL (11.7-16.9); MCH 30.4 pg (25.7-33.7); MCHC 33.4 g/dl (32.0-35.9); MEAN CELL VOLUME 91.2 fl (80-96); MEAN PLT VOLUME 8.3 fl (7.5-11.1); PLATELET COUNT 277.8 10^3/uL (134-434); RBC 2.56 10^6/uL (4.00-5.60); RDW 15.4 % (11.9-15.9); WHITE BLOOD COUNT 4.8 10^3/uL (4.0-10.8)
[2022-12-06] MEDS: DOCUSATE SODIUM 100 MG CAPSULE (FP) PO SCH ×3 (07:01→21:14)
[2022-12-06 09:24] LABS: HEMATOCRIT 26.1 % (35.4-49); HEMOGLOBIN 8.4 G/dL (11.7-16.9); MCH 29.4 pg (25.7-33.7); MCHC 32.2 g/dl (32.0-35.9); MEAN CELL VOLUME 91.3 fl (80-96); MEAN PLT VOLUME 8.7 fl (7.5-11.1); PLATELET COUNT 347.5 10^3/uL (134-434); RBC 2.86 10^6/uL (4.00-5.60); RDW 15.8 % (11.9-15.9); WHITE BLOOD COUNT 5.5 10^3/uL (4.0-10.8)
[2022-12-06] MEDS: SODIUM CHLORIDE 1,000 ML IV SCH (09:38)
[2022-12-06] MEDS: ASPIRIN COATED 81 MG TABLET.EC PO SCH ×2 (09:39→21:13)
[2022-12-06 10:47] LABS: PLATELET ESTIMATE ADEQUATE
[2022-12-06 10:50] LABS: BLOOD UREA NITROGEN 45.9 mg/dl (7-18); CALCIUM 8.3 mg/dl (8.5-10.1); CREATININE 3.3 mg/dl (0.6-1.3); POTASSIUM 4.9 mmol/L (3.5-5.1)
[2022-12-06 11:02] LABS: ALBUMIN 2.5 g/dl (3.4-5.0); BILIRUBIN,TOTAL 0.3 mg/dl (0.2-1); PHOSPHOROUS 4.14 (2.5-4.9); SGPT/ALT 4.1 U/L (7-52); TOT PROT 4.4 g/dl (6.4-8.2)
[2022-12-06] MEDS ORDERED: SODIUM CHLORIDE 1,000 ML IV SCH (12:28)
[2022-12-06] MEDS: ACETAMINOPHEN 325 MG TABLET (FP) PO PRN ×2 (13:15→21:14)
[2022-12-07] MEDS: DOCUSATE SODIUM 100 MG CAPSULE (FP) PO SCH (06:35)
[2022-12-07 06:37] VITALS: RESP 20
[2022-12-07] MEDS ORDERED: oxyCODONE HCL 5 MG TABLET PO PRN (07:18)
[2022-12-07] MEDS ORDERED: ACETAMINOPHEN 325 MG TABLET (FP) PO PRN (07:19)
[2022-12-07 09:12] VITALS: BP 162/88; PULSE 97; TEMP 97.7
[2022-12-07 09:14] LABS: HEMATOCRIT 25.5 % (35.4-49); HEMOGLOBIN 8.3 G/dL (11.7-16.9); MCH 29.9 pg (25.7-33.7); MCHC 32.5 g/dl (32.0-35.9); MEAN CELL VOLUME 91.7 fl (80-96); MEAN PLT VOLUME 8.3 fl (7.5-11.1); PLATELET COUNT 366.9 10^3/uL (134-434); RBC 2.78 10^6/uL (4.00-5.60); RDW 15.9 % (11.9-15.9)
[2022-12-07] MEDS: ASPIRIN COATED 81 MG TABLET.EC PO SCH (09:17)
[2022-12-07 09:40] LABS: BLOOD UREA NITROGEN 43.6 mg/dl (7-18); CREATININE 3.1 mg/dl (0.6-1.3); POTASSIUM 4.6 mmol/L (3.5-5.1)
[2022-12-07] MEDS ORDERED: FAMOTIDINE 20 MG TABLET PO SCH (10:00)
[2022-12-07] MEDS ORDERED: FAMOTIDINE 10 MG TABLET PO SCH (10:00)
[2022-12-07] MEDS ORDERED: CARVEDILOL 6.25 MG TABLET (FP) PO SCH (10:00)
[2022-12-07 11:22] LABS: IRON SERUM 8 ug/dL (50-175)
[2022-12-07 11:24] LABS: TOTAL IRON BINDING CAPACITY 153 ug/dL (250-450)
== END 2022-12-07 12:35 | disposition home or self-care (01) | DRG 812 ==
LOC: FER 01:13 → FM/S 03:23 → UNDOADMIN 03:53
PROVIDERS: ADMIT Internal Medicine; ATTEND Internal Medicine
PROC: 30233N1 Transfusion of Nonautologous Red Blood Cells into Peripheral Vein, Percutaneous Approach (ICD-10-PCS; principal; 2022-12-05)
DX: D64.9 Anemia, unspecified (principal); N17.9 Acute kidney failure, unspecified; I25.10 Atherosclerotic heart disease of native coronary artery without angina pectoris; M10.9 Gout, unspecified; I12.9 Hypertensive chronic kidney disease with stage 1 through stage 4 chronic kidney disease, or unspecified chronic kidney disease; N18.9 Chronic kidney disease, unspecified; M25.561 Pain in right knee
CPT/HCPCS: 0241U-QW; 36415; 36430; 71046-TC-FY; 73502-TC-RT-FY; 73562-TC-RT-FY; 80048; 80053; 81003; 81015; 82272; 82570; 82607; 82728; 83540; 83550; 84100; 84156; 85025; 85027; 86850; 86900; 86901; 86922; 93005; 93970-TC; 97010-GP; 97116-GP; 99285-25; P9058

== ENCOUNTER 2022-12-31 11:53 | Observation (INO) | payer OTHER, BC ==
[2022-12-31 12:30] LABS: INR 1.39 (0.83-1.09); PROTHROMBIN TIME (PATIENT) 16.1 SEC (9.7-13.0)
[2022-12-31 12:32] LABS: ACTIVATED PTT 38.6 SECONDS (25.2-36.5)
[2022-12-31 12:34] LABS: HEMATOCRIT 22.7 % (35.4-49); HEMOGLOBIN 7.3 G/dL (11.7-16.9); MCHC 32.2 g/dl (32.0-35.9); MEAN CELL VOLUME 90.2 fl (80-96); MEAN PLT VOLUME 8.2 fl (7.5-11.1); PLATELET COUNT 447.9 10^3/uL (134-434); RBC 2.52 10^6/uL (4.00-5.60); RDW 15.6 % (11.9-15.9); WHITE BLOOD COUNT 6.7 10^3/uL (4.0-10.8)
[2022-12-31 12:44] LABS: PLATELET ESTIMATE ADEQUATE
[2022-12-31 12:46] LABS: ALBUMIN 2.9 g/dl (3.4-5.0); BILIRUBIN,TOTAL 0.3 mg/dl (0.2-1); BLOOD UREA NITROGEN 38.5 mg/dl (7-18); CREATININE 2.9 mg/dl (0.6-1.3); SGOT/AST 10.4 U/L (15-37); SGPT/ALT 7.1 U/L (7-52); TOT PROT 5.8 g/dl (6.4-8.2)
[2022-12-31] MEDS ORDERED: HEPARIN NA (PORCINE) 5,000 UNITS/ML 1ML VIAL SQ SCH (14:00)
[2022-12-31 18:13] VITALS: BMI 20.2
[2022-12-31 21:08] LABS: EPITHELIAL CELLS RARE /hpf
[2022-12-31] MEDS: CARVEDILOL 12.5 MG TABLET (FP) PO SCH (21:14)
[2022-12-31] MEDS ORDERED: CARVEDILOL 6.25 MG TABLET (FP) PO SCH (22:00)
[2023-01-01] MEDS ORDERED: ACETAMINOPHEN 325 MG TABLET (FP) PO PRN (00:52)
[2023-01-01 02:03] VITALS: PULSE 91
[2023-01-01 08:52] LABS: BLOOD UREA NITROGEN 35.3 mg/dl (7-18); CREATININE 2.8 mg/dl (0.6-1.3); MAGNESIUM 1.8 mg/dL (1.8-2.4); PHOSPHOROUS 4.65 (2.5-4.9); POTASSIUM 3.9 mmol/L (3.5-5.1)
[2023-01-01] MEDS ORDERED: amLODIPine BESYLATE 5 MG TABLET (FP) PO SCH (10:00)
[2023-01-01] MEDS: CARVEDILOL 12.5 MG TABLET (FP) PO SCH (10:00)
[2023-01-01] MEDS ORDERED: FAMOTIDINE 10 MG TABLET PO SCH (10:00)
[2023-01-01] MEDS ORDERED: FERROUS SO4 325 MG TABLET (FP) PO SCH (10:00)
[2023-01-01] MEDS ORDERED: ASPIRIN COATED 81 MG TABLET.EC PO SCH (10:00)
[2023-01-01 10:37] LABS: EOS % 0.7 % (0-4.5); HEMATOCRIT 23.3 % (35.4-49); HEMOGLOBIN 7.6 GM/dL (11.7-16.9); LYMPH % 15.5 % (8-40); MCH 28.2 pg (25.7-33.7); MCHC 32.7 g/dl (32.0-35.9); MEAN CELL VOLUME 86.1 fl (80-96); MEAN PLT VOLUME 8.2 fl (7.5-11.1); MONO % 10.4 % (3.8-10.2); NEUT % 72.4 % (42.8-82.8); PLATELET COUNT 433 10^3/uL (134-434); RDW 15.3 % (11.9-15.9); WHITE BLOOD COUNT 5.7 K/mm3 (4.0-10.0)
[2023-01-01 12:01] VITALS: BP 134/68; RESP 18; TEMP 97.8
== END 2023-01-01 12:35 | disposition home or self-care (01) ==
LOC: FER 11:53 → FM/S 13:51
PROVIDERS: ADMIT Internal Medicine; ATTEND Internal Medicine
DX: I25.10 Atherosclerotic heart disease of native coronary artery without angina pectoris (principal); I11.9 Hypertensive heart disease without heart failure; I13.10 Hypertensive heart and chronic kidney disease without heart failure, with stage 1 through stage 4 chronic kidney disease, or unspecified chronic kidney disease; M10.9 Gout, unspecified; N18.9 Chronic kidney disease, unspecified; R94.31 Abnormal electrocardiogram [ECG] [EKG]; D64.9 Anemia, unspecified; Z96.651 Presence of right artificial knee joint; Z87.891 Personal history of nicotine dependence
CPT/HCPCS: 36415; 36430; 71046-TC-FY; 80048; 80053; 81003; 81015; 82272; 83735; 84100; 84484; 85025; 85027; 85610; 85730; 86850; 86900; 86901; 86922; 87635; 93005; 97116-GP; 97162-GP; 99285-25; G0378; P9058

== ENCOUNTER 2023-05-19 08:34 | Emergency (ER) | payer BC, OTHER ==
[2023-05-19 08:49] VITALS: BP 168/89; PULSE 74; RESP 16; TEMP 98; BMI 23.6
[2023-05-19] MEDS ORDERED: ACETAMINOPHEN 500 MG TABLET (FP) PO ONE (08:53)
[2023-05-19] MEDS ORDERED: ACETAMINOPHEN 500 MG TABLET (FP) ONE (09:01)
== END 2023-05-19 10:52 | disposition home or self-care (01) ==
LOC: FER 08:34
DX: M54.2 Cervicalgia (principal); R51.9 Headache, unspecified; M79.10 Myalgia, unspecified site; V43.53XA Car driver injured in collision with pick-up truck in traffic accident, initial encounter; Y92.410 Unspecified street and highway as the place of occurrence of the external cause
CPT/HCPCS: 70450-TC; 72125-TC; 99284-25